=== PATIENT | male | born 1940 | race Caucasian/White ===

== ENCOUNTER → 2016-10-04 | Outpatient (CLI) | payer MEDICARE ==
[~2016-10-04] MED LIST: ADV250INH INH; ALB2.5NEB INH; ALBU17IN INH; AMLO10TA PO; AMLO10TA2 PO; AMLO25TA PO; ASPI1TAB PO; ATOR1TAB19 PO; BENA25CA2 PO; BENA25TA4 PO; BISO10TA PO; BISO5TAB5 PO; CIPR-250 PO; CIPR500T89 PO; CLOB-25 TOP; COLA100C PO; COMP1TAB PO; DITR5TAB PO; DOCU10CA PO; DOXY100C PO; FERR325T16 PO; FERR32TA PO; FIRS1SOL3 PO; HYDR100T PO; IMOD2TAB16 PO; LASI20TA PO; LEVA250T PO; MEGE40TA PO; MIRA3350 PO; OCUVTAB PO; OMEP10CASR PO; OMEP20CA3 PO; OMEP40CA2 PO; ONETAB4 PO; PAME25CA PO; PAME50CA PO; PERC2.5T PO; PERC5TAB6 PO; PROBCAP4 PO; SENO8.6T10 PO; SODI650T PO; TYLE500T78 PO; ZYVO100T PO; imodium PO
[2016-10-04 13:13] LABS: MEAN CORPUSCULAR HGB CONC 32.4 g/dl (32.0-36.5); MEAN CORPUSCULAR VOLUME 89.5 fl (80.0-96.0); RED CELL DISTRIBUTION WIDTH 15.7 % (11.5-14.5); RETIC HEMOGLOBIN CONTENT CHr 31.8 PG (24-36); RETICULOCYTE % ADVIA2120 1.6 % (0.5-1.5); WHITE BLOOD COUNT 6.3 K/mm3 (4.0-10.0)
[2016-10-04 13:56] LABS: ALBUMIN 3.9 GM/DL (3.2-5.2); ALBUMIN/GLOBULIN RATIO 1.15 (1.00-1.93); BILIRUBIN,TOTAL 0.5 MG/DL (0.2-1.0); CALCIUM LEVEL 9.4 MG/DL (8.8-10.2); CREATININE FOR GFR 3.15 MG/DL (0.70-1.30); FREE T4 0.97 NG/DL (0.76-1.46); GLOMERULAR FILTRATION RATE 20.5 (>42); POTASSIUM SERUM 4.2 MEQ/L (3.5-5.1); TOTAL PROTEIN 7.3 GM/DL (6.4-8.2)
== END ==
LOC: M SMT 08:12
PROVIDERS: ATTEND Family Medicine
DX: N18.4 Chronic kidney disease, stage 4 (severe) (principal); E78.2 Mixed hyperlipidemia; D50.9 Iron deficiency anemia, unspecified; E03.9 Hypothyroidism, unspecified

== ENCOUNTER → 2016-10-24 | Outpatient (CLI) | payer MEDICARE ==
[2016-10-24 13:47] LABS: ALBUMIN 3.9 GM/DL (3.2-5.2); CREATININE FOR GFR 3.04 MG/DL (0.70-1.30); GLOMERULAR FILTRATION RATE 21.3 (>42); PHOSPHORUS LEVEL 3.5 MG/DL (2.5-4.9); POTASSIUM SERUM 4.2 MEQ/L (3.5-5.1)
== END ==
LOC: M SMT 09:38
PROVIDERS: ATTEND Family Medicine
DX: N18.4 Chronic kidney disease, stage 4 (severe) (principal)

== ENCOUNTER → 2016-11-29 | Outpatient (REF) | payer MEDICARE ==
[2016-11-29 14:30] LABS: PERCENT SATURATION 21.5 % (19.7-37.4)
== END ==
LOC: M LAB REF 13:53
PROVIDERS: ATTEND Internal Medicine Nephrology
DX: D50.9 Iron deficiency anemia, unspecified (principal)

== ENCOUNTER → 2017-01-01 | Outpatient (CLI) | payer MEDICARE ==
[~2017-01-01] MED LIST changes: -COLA100C PO; +COLA100C3 PO; +GASTROGRAFIN SOLUTION 30ML (Q9963) As Ordered ONE; +ISOVUE-370 76% 100ML VIAL (Q9967) As Ordered ONE; -MEGE40TA PO; +MEGE40TA18 PO
--- NOTE | 2017-01-01 09:01 | REP ---
CT CHEST WITHOUT CONTRAST: 01/01/2017. Comparison: 07/03/2016, 01/01/2016. Clinical history: Bladder carcinoma, follow-up. Findings: Noncontrast images were obtained with coronal and sagittal reconstructions. The lung celeste show a 10 mm nodule lateral basal segment left lower lobe between the mid axillary and posterior axillary line. Some dependent atelectatic changes right greater than left. There is some underlying minor fibrotic change. Some hyperinflation and COPD noted. Some bullous emphysematous changes noted bilaterally in the upper lung zones unchanged. No dense consolidation, new nodule or mass. No effusion or pleural based mass. No pleural calcifications. Heart is not grossly enlarged. There is a right upper chest wall multilead pacer with leads in the right atrium and ventricle as well as an epicardial lead. No gross cardiomegaly, pericardial thickening or effusion. I see no axillary or supraclavicular mass. Tortuous calcified aorta without aneurysm noted. No pathologic sized mediastinal or hilar adenopathy. Coronary calcifications are seen. No hiatal hernia. Bone windows show sternum, manubrium, medial heads of the clavicles, humeral heads, scapula and ribs without definite fracture or destructive lesion. The vertebral bodies show a few small marginal osteophytes but no compression deformity. Posterior elements intact. In the upper abdomen, adrenal glands normal. Please see abdominal CT for description of the upper abdominal contents. Impression: 1. Stable 10 mm noncalcified pulmonary nodule in the lateral basal segment left lower lobe. No new or other significant finding. There are chronic changes of COPD with bullous emphysematous changes, pulmonary artery hypertension and fibrosis. No effusion, pleural-based mass or calcifications. 2. No gross cardiomegaly, mediastinal or hilar adenopathy or other acute finding. 3. Multilead pacer as before with calcified aorta without aneurysm. 4. Bones unremarkable. Signed by Cr Shaw MD 01/01/2017 03:27 P
--- NOTE | 2017-01-01 09:25 | REP ---
CT ABDOMEN AND PELVIS WITHOUT CONTRAST: 01/01/2017. Clinical history: Bladder carcinoma. Follow-up. Comparison: 07/03/2016, 01/01/2016. Technique: Oral Gastrografin mixture 10 ml in 290 ml of flavored water for two doses per our bowel contrast protocol. Scanning through the abdomen and pelvis with both coronal and sagittal reconstructions provided. Bone windows also reviewed. Findings: CT abdomen: Right and left lobe of the liver each have a subcentimeter hepatic cyst unchanged. No new mass or cyst in the liver visible. No intrahepatic biliary dilatation or ascites. Spleen not enlarged and without a focal lesion. No hepatomegaly. Gallbladder shows some hyperdense sludge or tiny noncalcified stones in its dependent portion. There is no extrahepatic ductal dilatation of the biliary tree or in the pancreatic head region. Pancreas is unremarkable. There is no mass, adenopathy or fluid. There is no adrenal mass or lesion. There is significant atrophy of the right kidney with exophytic small cysts. There is an exophytic cyst posteriorly upper pole left kidney and cyst in the interpolar region medially on the left at about 17 mm, unchanged. No hydronephrosis, hydroureter, renal, ureteral or bladder stone. Thickening of the adrenal limbs on the right is stable. The aorta is calcified without aneurysm. No periaortic or other retroperitoneal lymphadenopathy. Moderate retained stool throughout the colon in the abdomen. Oral contrast filling small bowel loops without dilatation. No mesenteric infiltration, edema or mass nor any adenopathy. No obstruction. Lung window review of the abdomen and pelvis show no perforation or free air on any slice. Bone windows show degenerative disc changes with vacuum phenomenon at L3-4 and marginal osteophytes at most levels with no compression deformity of destructive lesion. Facet arthropathy is noted bilaterally. Visualized ribs without acute finding. CT pelvis. The bony hips show some degenerative changes of the pelvis including the acetabuli and ischia without visible fracture or destructive lesions. There is a bone island in the left sacral ala and the right iliac wing adjacent to the sacrum, unchanged. Left colon, sigmoid and rectum with mild to moderate stool. Small bowel loops in the pelvis are unremarkable. No inflammatory changes about the cecum nor mass. Bladder shows a diverticulum along its posterolateral right wall and is irregular shaped. Its wall thickness is somewhat lobulated and irregular. The distal ureters show no dilatation or definite stone. This suggests a neobladder. Anastomotic sutures in the adjacent colon are unremarkable. There are multiple pelvic phleboliths. There are vascular calcifications within the iliac and femoral arteries and 9.6 mm fatty replaced right inguinal node with another 9.7 mm inguinal node with similar fat slightly larger than the left-sided inguinal nodes. These are all unchanged. No pelvic lymphadenopathy. There are multiple surgical clips in the deep pelvis, unchanged. Prior prostatectomy also noted. Impression: 1. Status post cystectomy, neobladder creation and prostatectomy with post surgical changes, stable. 2. The right iliac bone and left sacral ala shows sclerotic foci with these unchanged and suggesting bone islands. 3. Inguinal nodes with fatty replacement, stable. 4. Some degree of constipation. Atrophy of the right kidney but no hydronephrosis. Some small renal cysts. Stable examination. Signed by Cr Shaw MD 01/01/2017 03:27 P
== END ==
LOC: M RAD 07:07
PROVIDERS: ATTEND Internal Medicine Medical Oncology
DX: C67.9 Malignant neoplasm of bladder, unspecified (principal); R91.1 Solitary pulmonary nodule; Z95.0 Presence of cardiac pacemaker; N28.1 Cyst of kidney, acquired; K59.00 Constipation, unspecified
CPT/HCPCS: 71250; 74176; Q9963

== ENCOUNTER → 2017-01-16 | Outpatient (CLI) | payer MEDICARE ==
[~2017-01-16] MED LIST changes: -GASTROGRAFIN SOLUTION 30ML (Q9963) As Ordered ONE; -ISOVUE-370 76% 100ML VIAL (Q9967) As Ordered ONE
[2017-01-16 12:20] LABS: MEAN CORPUSCULAR HEMOGLOBIN 32.4 pg (27.0-33.0); MEAN CORPUSCULAR HGB CONC 34.7 g/dl (32.0-36.5); MEAN CORPUSCULAR VOLUME 93.5 fl (80.0-96.0); RED CELL DISTRIBUTION WIDTH 14.7 % (11.5-14.5); WHITE BLOOD COUNT 6.1 K/mm3 (4.0-10.0)
[2017-01-16 12:23] LABS: CREATININE FOR GFR 3.23 MG/DL (0.70-1.30); GLOMERULAR FILTRATION RATE 19.9 (>42); POTASSIUM SERUM 4.2 MEQ/L (3.5-5.1)
== END ==
LOC: M SMT 07:56
PROVIDERS: ATTEND Urology
DX: C67.9 Malignant neoplasm of bladder, unspecified (principal)

== ENCOUNTER → 2017-03-10 | Outpatient (CLI) | payer MEDICARE ==
[~2017-03-10] MED LIST changes: +ATOR40TA PO; +CLOP75TA2 PO; +FURO40TA2 PO; +NORT50CA PO; +POTA10CA PO; +SYNT25TA PO; +VITA100037 PO; +VITA100072 PO
== END ==
LOC: M SMT 10:00
PROVIDERS: ATTEND Internal Medicine Cardiovascular Disease
DX: E03.9 Hypothyroidism, unspecified (principal); R53.83 Other fatigue; I25.10 Atherosclerotic heart disease of native coronary artery without angina pectoris; R07.89 Other chest pain

== ENCOUNTER 2017-03-11 11:45 | Emergency (ER) | payer MEDICARE ==
[~2017-03-11] VITALS: Ht 177.8 cm; Wt 89.3 kg
[~2017-03-11 11:45] MED LIST changes: -ATOR40TA PO; +CIPR-249 PO; -CIPR500T89 PO; -CLOP75TA2 PO; -COLA100C3 PO; +COLA100C5 PO; -FURO40TA2 PO; +LEVA1TAB PO; -LEVA250T PO; -NORT50CA PO; +PERC5TAB12 PO; -PERC5TAB6 PO; -POTA10CA PO; -SYNT25TA PO; -VITA100037 PO; -VITA100072 PO
[2017-03-11] MEDS ORDERED: OMEP40CA2 PO (12:11)
[2017-03-11] MEDS ORDERED: SYNT25TA PO (12:11)
[2017-03-11] MEDS ORDERED: VITA100072 PO (12:11)
[2017-03-11] MEDS ORDERED: VITA100067 PO (12:11)
[2017-03-11] MEDS ORDERED: ONETAB4 PO (12:11)
[2017-03-11] MEDS ORDERED: FERR325T16 PO (12:11)
[2017-03-11] MEDS ORDERED: PROBCAP4 PO (12:11)
[2017-03-11] MEDS ORDERED: CLOP75TA2 PO (12:11)
[2017-03-11] MEDS ORDERED: SODI650T PO (12:11)
[2017-03-11] MEDS ORDERED: FURO40TA2 PO (12:11)
[2017-03-11] MEDS ORDERED: NORT50CA PO (12:11)
[2017-03-11] MEDS ORDERED: AMLO10TA2 PO (12:11)
[2017-03-11] MEDS ORDERED: HEPARIN DRIP 25,000 UNITS in APPROPRIATE DILUENT 1 EA IV SCH (12:13)
[2017-03-11] MEDS ORDERED: ASPIRIN 81 MG CHEW TABLET PO ONE (12:15)
[2017-03-11] MEDS ORDERED: HEPARIN SOD (PORCINE) 5000 UNITS/ML VIAL IV ONE (12:15)
[2017-03-11 12:44] LABS: BASO % 0.3 % (0.0-1.0); EOS # 0.2 K/mm3 (0.0-0.50); EOS % 3.5 % (0.0-3.0); INR 0.89; LARGE UNSTAINED CELL # 0.2 K/mm3 (0.0-0.4); LARGE UNSTAINED CELL % 3.7 % (0.0-4.0); LYMPH # 1.5 K/mm3 (1.5-4.5); LYMPH % 22.7 % (24.0-44.0); MEAN CORPUSCULAR HEMOGLOBIN 31.3 pg (27.0-33.0); MEAN CORPUSCULAR HGB CONC 34.1 g/dl (32.0-36.5); MEAN CORPUSCULAR VOLUME 91.8 fl (80.0-96.0); MONO # 0.4 K/mm3 (0.0-0.8); MONO % 7.4 % (0.0-5.0); NEUTROPHILS # 3.5 K/mm3 (1.8-7.7); NEUTROPHILS % 62.4 % (36.0-66.0); PLATELET COUNT, AUTOMATED 185 k/mm3 (150-450); RED CELL DISTRIBUTION WIDTH 14.8 % (11.5-14.5); WHITE BLOOD COUNT 5.6 K/mm3 (4.0-10.0)
--- NOTE | 2017-03-11 12:50 | REP ---
PORTABLE CHEST: AP portable view of the chest is performed and compared to prior study of 10/09/2015. There is mild bibasilar fibroatelectatic change, which is stable. Heart is upper limits of normal in size. There is calcification of the thoracic aorta. The pacemaker leads appear unchanged. IMPRESSION: Chronic findings without evidence of acute infiltrate. Signed by Paul Perry MD 03/11/2017 05:02 P
[2017-03-11 12:56] LABS: ALBUMIN 3.5 GM/DL (3.2-5.2); ALBUMIN/GLOBULIN RATIO 1.13 (1.00-1.93); BILIRUBIN,DIRECT 0.1 MG/DL (0.0-0.2); BILIRUBIN,TOTAL 0.6 MG/DL (0.2-1.0); CALCIUM LEVEL 8.3 MG/DL (8.8-10.2); CREATININE FOR GFR 2.55 MG/DL (0.70-1.30); FREE T4 0.88 NG/DL (0.76-1.46); GLOMERULAR FILTRATION RATE 26.1 (>42); POTASSIUM SERUM 3.6 MEQ/L (3.5-5.1); TOTAL PROTEIN 6.6 GM/DL (6.4-8.2)
[2017-03-11 13:59] VITALS: BP 152/70
--- NOTE | 2017-03-11 17:57 | ECGEPIP ---
Stationary ECG Study [facility] - ED Test Date: 2017-03-11 Pat Name: BILL ROSE Department: Room: - Gender: M Pediatric Clinical Nurse Specialist: elvie : 1940 Requested By: Jb Umaña Order Number: [id number] Reading MD: Jb Umaña Measurements Intervals [place] Rate: 55 P: 69 TN: 197 QRS: 25 QRSD: 110 T: 40 QT: 454 QTc: 435 Interpretive Statements ELECTRONIC ATRIAL PACEMAKER INCOMPLETE RIGHT BUNDLE BRANCH BLOCK ABNORMAL RHYTHM ECG 06/06/16 - RATE DECREASED Electronically Signed On 03-11-2017 17:56:37 EDT by Jb Umaña
== END 2017-03-11 14:00 | disposition short-term general hospital (02) ==
LOC: M ED 12:35
DX: I21.4 Non-ST elevation (NSTEMI) myocardial infarction (principal); I25.10 Atherosclerotic heart disease of native coronary artery without angina pectoris; I12.9 Hypertensive chronic kidney disease with stage 1 through stage 4 chronic kidney disease, or unspecified chronic kidney disease; E78.5 Hyperlipidemia, unspecified; N18.3 Chronic kidney disease, stage 3 (moderate); Z95.5 Presence of coronary angioplasty implant and graft; Z95.0 Presence of cardiac pacemaker; Z79.02 Long term (current) use of antithrombotics/antiplatelets; Z79.82 Long term (current) use of aspirin; Z87.891 Personal history of nicotine dependence; Z79.899 Other long term (current) drug therapy; Z88.2 Allergy status to sulfonamides; Z88.5 Allergy status to narcotic agent; Z88.8 Allergy status to other drugs, medicaments and biological substances; Z91.041 Radiographic dye allergy status

== ENCOUNTER 2017-03-13 12:40 | Observation (INO) | payer MEDICARE ==
[~2017-03-13] VITALS: Ht 177.8 cm; Wt 86.2 kg
[~2017-03-13 12:40] MED LIST changes: +CLOP75TA2 PO; +FURO40TA2 PO; +NORT50CA PO; +SYNT25TA PO; +VITA100067 PO; +VITA100072 PO
[2017-03-13] MEDS ORDERED: ATOR40TA75 PO (12:59)
[2017-03-13 13:25] LABS: INR 0.9
[2017-03-13 13:26] LABS: BASO % 0.2 % (0.0-1.0); EOS # 0.1 K/mm3 (0.0-0.50); EOS % 1.7 % (0.0-3.0); LARGE UNSTAINED CELL # 0.2 K/mm3 (0.0-0.4); LARGE UNSTAINED CELL % 2.3 % (0.0-4.0); LYMPH # 0.7 K/mm3 (1.5-4.5); LYMPH % 10.6 % (24.0-44.0); MEAN CORPUSCULAR HEMOGLOBIN 31.1 pg (27.0-33.0); MEAN CORPUSCULAR HGB CONC 32.8 g/dl (32.0-36.5); MEAN CORPUSCULAR VOLUME 94.9 fl (80.0-96.0); MONO # 0.4 K/mm3 (0.0-0.8); MONO % 5.9 % (0.0-5.0); NEUTROPHILS # 5.3 K/mm3 (1.8-7.7); NEUTROPHILS % 79.3 % (36.0-66.0); PLATELET COUNT, AUTOMATED 181 k/mm3 (150-450); RED CELL DISTRIBUTION WIDTH 15.1 % (11.5-14.5); WHITE BLOOD COUNT 6.7 K/mm3 (4.0-10.0)
[2017-03-13 13:42] LABS: ALBUMIN 3.3 GM/DL (3.2-5.2); ALBUMIN/GLOBULIN RATIO 0.94 (1.00-1.93); BILIRUBIN,DIRECT 0.1 MG/DL (0.0-0.2); BILIRUBIN,TOTAL 0.4 MG/DL (0.2-1.0); CALCIUM LEVEL 8.4 MG/DL (8.8-10.2); CREATININE FOR GFR 2.78 MG/DL (0.70-1.30); FREE T4 0.89 NG/DL (0.76-1.46); GLOMERULAR FILTRATION RATE 23.6 (>42); POTASSIUM SERUM 3.9 MEQ/L (3.5-5.1); TOTAL PROTEIN 6.8 GM/DL (6.4-8.2)
--- NOTE | 2017-03-13 13:56 | REP ---
Portable chest, 03/13/2017, 01:29 p.m., single AP view, the patient semi upright: Comparison is 03/11/2017. The lung celeste are clear. Cardiac size is upper normal. There is a multi pacemaker entering from the right. These one of the pacemaker leads is fractured. This is unchanged. Impression: Essentially negative portable chest. No interval change. Signed by Paul Kolb MD 03/13/2017 01:47 P
--- NOTE | 2017-03-13 14:23 | REP ---
CT abdomen pelvis without IV or bowel contrast: The patient has a history of bladder carcinoma with cystectomy and neobladder reconstruction and prostatectomy. The the patient has also had partial bowel resection. Anastomosis. Comparison is 01/01/2017. There is no retroperitoneal hematoma. There is no free intraperitoneal fluid. There are focal inflammatory changes in the mesentery posterior to the cecum as an interval change, possibly representing peritonitis. I am unable to identify the appendix. There is a circumferential surgical staple line in bowel loops in the midline of the pelvis. This was not present previously. This appears to be an a small bowel loop in the ileum. However, there is a small bowel feces sign" within the small bowel at this anastomosis. This is compatible with small bowel stasis. However, there is no evidence of small bowel obstruction. There is no pneumoperitoneum. The visualized lung celeste demonstrate dependent atelectasis but are otherwise unremarkable. The unenhanced hepatic parenchyma is unremarkable. There is no of calcium in the gallbladder. The gallbladder is otherwise unremarkable. Pancreas and spleen are unremarkable. The adrenals are unremarkable. There is bilateral renal cortical atrophy, worse on the right and the left. Abdominal aorta is unremarkable. No evidence of bowel obstruction. Reconstructed bladder is unremarkable except for a diverticulum posterior laterally on the right. This is unchanged. Impression: There is no retroperitoneal hematoma. There is no free intraperitoneal fluid. No pneumoperitoneum. There has been a cystectomy bladder reconstruction. Reconstructed bladder is unremarkable except for a bladder diverticulum. There are focal inflammatory changes in the peritoneum adjacent to the cecum and terminal ileum, not present previously. There is no focal fluid collection to suggest abscess. I cannot identify the appendix. There is a circumferential bowel anastomotic suture line in the distal ileum not present previously. There is a small bowel "feces sign" within this portion of the ileum compatible with stasis. However, there is no evidence of bowel obstruction. Signed by Paul Kolb MD 03/13/2017 02:14 P
[2017-03-13] MEDS ORDERED: PIPERACILLIN/TAZOBACTAM SOD 3.375 GM in D5W MINI-BAG PLUS 50 ML IV ONE (15:15)
[2017-03-13] MEDS ORDERED: LOPERAMIDE 2 MG CAP PO PRN (17:45)
[2017-03-13] MEDS ORDERED: DOCUSATE SODIUM 100 MG CAP PO PRN (17:45)
[2017-03-13] MEDS ORDERED: MIRALAX *UNIT DOSE* 17GM PACKET PO PRN (17:45)
[2017-03-13] MEDS ORDERED: PERCOCET 5MG/325MG TAB PO PRN (18:15)
--- NOTE | 2017-03-13 18:40 | HPEPDOC ---
General Date of Admission Mar 13, 2017 at 17:25 Primary Care Physician: James Bianchi MD Other Providers Products Mechanical Design Engineer: Dr. Salazar Feedmobile Driver: Dr. Petersen Attending Physician: TREVOR DELGADO DO Chief Complaint The patient is a 77-year-old male admitted with a reason for visit of Abdominal Pain,Atypical Chest Pain, Groin Pain. Source: Patient History of Present Illness Patient is a 77-year-old male with past medical history significant for cardiac stents placed 2 days ago, none ST elevation myocardial infarction, cardiac pacemaker, hypertension, hyperlipidemia, chronic kidney disease stage IV presents to the emergency room with the complaint of jaw pain and groin pain. Patient recently had a NSTEMI on 03/11/2017. Patient presented to the ER at [facility] with atypical chest pain. Patient was then transferred to [facility] for 2 cardiac caths. Patient remembered feeling fine yesterday and was sent home. Upon arriving home patient did not feel right. He started having some soreness in his right groin and right lower abdomen. Patient also started having some jaw pain across his lower jaw bilaterally. He describes it as sore and rates it at 7 out of 10. Patient is also still having some of this jaw pain in the ER. Patient states she's had this in the past and usually has a headache but does not have this today. Patient states that the groin pain was due to the cardiac cath's. Patient has not been taking anything for the pain. Patient was originally in the ER with his with his life has left for other reasons. She will return later tonight. Patient states that she would remember more. Patient does not remember the exact details of arriving to the hospital today. He states he had a lot going on. Does not remember having any chest pain. When asked why are you here patient states he does not remember why. Then asked patient if he saw Dr. Salazar's office today and patient replied that his called his office and Dr. Salazar told his to come to the ER. Patient is oriented [address] and time. Patient does remember his birthday. Home Medications Scheduled Amlodipine Besylate (Amlodipine Besylate) 10 Mg Tab, 10 MG PO DAILY, (Reported) Aspirin (Aspirin 81) 81 Mg Tab, 81 MG PO DAILY, (Reported) Atorvastatin Calcium (Atorvastatin Calcium) 40 Mg Tab, 40 MG PO QHS, (Reported) Bisoprolol Fumarate (Bisoprolol Fumarate) 5 Mg Tab, 2.5 MG PO DAILY, (Reported) Clopidogrel Bisulfate (Clopidogrel) 75 Mg Tab, 75 MG PO DAILY, (Reported) Cyanocobalamin (Vitamin B12) 1,000 Mcg Tab, 1,000 MCG PO DAILY, (Reported) Ferrous Gluconate (Ferrous Gluconate) 324 Mg Tab, 324 MG PO BID, (Reported) Furosemide (Furosemide) 40 Mg Tab, 40 MG PO DAILY, (Reported) Levothyroxine Sodium (Synthroid) 25 Mcg Tab, 25 MCG PO DAILY, (Reported) Nortriptyline HCl (Nortriptyline HCl) 50 Mg Cap, 50 MG PO QHS, (Reported) Omeprazole (Omeprazole) 40 Mg Cap, 40 MG PO BID, (Reported) Potassium Chloride (Klor-Con M10) 10 Meq Tabcr, 20 MEQ PO BID Sodium Bicarbonate (Sodium Bicarbonate) 650 Mg Tab, 1,950 MG PO TID, (Reported) Vitamin D (Vitamin D) 1,000 Unit Cap, 1,000 UNIT PO DAILY, (Reported) hydrALAZINE HCL (Hydralazine HCl) 100 Mg Tab, 100 MG PO TID, (Reported) HOLD FOR SYSTOLIC BP <130 Scheduled PRN Docusate Sodium (Colace) 100 Mg Cap, 100 MG PO BIDP PRN for BOWEL CARE/ CONSTIPATION, (Reported) Loperamide Hcl (Imodium A-D) 2 Mg Tab, 2 MG PO DAILYPRN PRN for DIARRHEA, ( Reported) Polyethylene Glycol (Miralax) 1 Pow Pow, 17 GM PO DAILYPRN PRN for CONSTIPATION, (Reported) Allergies Coded Allergies: Contrast Media (Verified Allergy, Unknown, 06/17/14) Iodine (Verified Allergy, Unknown, 12/22/12) Sulfa Drugs (Verified Allergy, Unknown, 12/22/12) TAPE (Verified Allergy, Unknown, EKG PADS - skin irritation, 07/16/14) Haloperidol (Unverified Adverse Reaction, Severe, UNRESPONSIVE FOR 24 HOURS, 12/22/14) Hydrocodone (Unverified Adverse Reaction, Mild, "GOES INTO ORBIT", 12/22/14) Morphine (Unverified Adverse Reaction, Mild, "GOES INTO ORBIT", 12/22/14) Past Medical History Medical History 1. An STEMI 03/11/2017 2. Hypertension 3. Hyperlipidemia 4. Coronary artery disease 5. Chronic kidney disease stage IV 6. Anemia, chronic 7. History of bladder cancer 8. GERD Surgical History 1. Cardiac stents 2 in February 2017 at [facility] in [place] 2. Appendectomy 3. Cardiac pacemaker 4. Cataract surgery bilateral 5. Carpal tunnel release right 6. Cardiac Stents in 2002 1999 400,009 7. TURBT 2013 8. Robotic-assisted radical cystoprostatectomy, bilateral extended pelvic lymph node dissection, neobladder creation, lysis of adhesions, anteriorly. Bilateral double-J stent placement September [address] Paiz Family History Father: Heart problems Social History * Smoker: former Smoker, quit greater than 1 year (quit smoking 1991. Patient smoked a couple packs a day.) Alcohol: Denies Drugs: denies Recent Travel/Sick Contacts: Denies: Recent travel, Recent sick contacts Patient was at home with his . He has a boy who lives in [place]. They have no other children. No one else lives at home with them. Review of Symptoms Constitutional: Reports: Fatigue, Lethargy, Denies: Chills, Fever, Malaise Eyes: Denies: Pain, Vision change ENT: Denies: Head Aches Skin: Denies: Rash, Lesions Pulmonary: Reports: Cough (nonproductive. Patient minutes to having sometimes productive. He had this cough "for ages"), Denies: Dyspnea Cardiovascular: Denies: Chest Pain, Palpitations, Orthopnea Gastrointestinal: Denies: Nausea, Vomiting, Abdominal Pain, Diarrhea, Constipation Genitourinary: Denies: Dysuria, Frequency, Incontinence Hematologic: Denies: Bruising, Bleeding Excessively Endocrine: Denies: Polydipsia, Polyphagia Musculoskeletal: Denies: Neck Pain Neurological: Denies: Weakness, Numbness, Change in speech, Confusion Psych: Reports: Mood Normal, Memory Issues (patient does not remember all of the details of coming to the ER today.), Denies: Anxiety, Depression Physical Examination General Exam: Positive: Alert, Cooperative, No Acute Distress Eye Exam: Positive: PERRLA, Conjunctiva & lids normal, EOMI, Negative: Sclera icteric, Ptosis ENT Exam: Positive: Atraumatic, Mucous membr. moist/pink, Pharynx Normal, Tongue Midline, Nares Patent Neck Exam: Positive: Supple, Negative: JVD, thyromegaly, Lymphadenopathy Chest Exam: Positive: Clear to auscultation, Normal air movement, Negative: Rales, Wheezing Heart Exam: Positive: Rate Normal, Normal S1, Normal S2, Negative: Gallops, Murmurs, Rubs Abdomen Exam: Positive: Normal bowel sounds, Soft, Tenderness (right lower quadrant), Negative: Hepatospenomegaly, Mass Extremity Exam: Positive: Normal pulses (radial pulses and pedal pulses 2/4 bilaterally.), Negative: Clubbing, Cyanosis, Edema Skin Exam: Positive: Nl turgor and temperature, Negative: Rash, Breakdown Neuro Exam: Positive: Normal Speech, Strength at 5/5 X4 ext, Sensation Intact, Cranial Nerves 3-12 NL Psych Exam: Positive: Mental status NL, Mood NL, Oriented x 3 (person place and time) Vital Signs Vital Signs Date Time Temp Pulse Resp B/P (MAP) Pulse Ox O2 Delivery O2 Flow Rate FiO2 03/13/17 18:01 16 151/64 (93) 03/13/17 17:55 84 96 03/13/17 12:41 97.9 Room Air Laboratory Data Labs 24H Laboratory Tests 2 03/13/17 12:55: White Blood Count 6.7, Red Blood Count 3.25L, Hemoglobin 10.1L, Hematocrit 30.8L , Mean Corpuscular Volume 94.9, Mean Corpuscular Hemoglobin 31.1, Mean Corpuscular Hemoglobin Concent 32.8, Red Cell Distribution Width 15.1H, Platelet Count 181, Neutrophils (%) (Auto) 79.3H, Lymphocytes (%) (Auto) 10.6L, Monocytes (%) (Auto) 5.9H, Eosinophils (%) (Auto) 1.7, Basophils (%) (Auto) 0.2 , Neutrophils # (Auto) 5.3, Lymphocytes # (Auto) 0.7L, Monocytes # (Auto) 0.4, Eosinophils # (Auto) 0.1, Basophils # (Auto) 0.0, Large Unclassified Cells % 2.3 , Large Unclassified Cells # 0.2, Prothrombin Time 12.3, Prothromb Time International Ratio 0.90, Activated Partial Thromboplast Time 20.0L, Anion Gap 6L, Glomerular Filtration Rate 23.6L, Calcium Level 8.4L, Aspartate Amino Transf (AST/SGOT) 71H, Alanine Aminotransferase (ALT/SGPT) 47, Alkaline Phosphatase 130H, Total Bilirubin 0.4, Direct Bilirubin 0.1, Total Creatine Kinase 158, Creatine Kinase MB 3.1, Creatine Kinase MB Relative Index 1.96, Troponin I 0.47H, Total Protein 6.8, Albumin 3.3, Albumin/Globulin Ratio 0.94L, Lipase 246, Thyroid Stimulating Hormone (TSH) 2.450, Free Thyroxine 0.89 03/13/17 15:23: Total Creatine Kinase 140, Creatine Kinase MB 2.8, Creatine Kinase MB Relative Index 2.00, Troponin I 0.43H CBC/BMP Laboratory Tests 03/13/17 12:55 Red Blood Count 3.25 L, Mean Corpuscular Volume 94.9, Mean Corpuscular Hemoglobin 31.1, Mean Corpuscular Hemoglobin Concent 32.8, Red Cell Distribution Width 15.1 H, Neutrophils (%) (Auto) 79.3 H, Lymphocytes (%) (Auto ) 10.6 L, Monocytes (%) (Auto) 5.9 H, Eosinophils (%) (Auto) 1.7, Basophils (%) (Auto) 0.2, Neutrophils # (Auto) 5.3, Lymphocytes # (Auto) 0.7 L, Monocytes # ( Auto) 0.4, Eosinophils # (Auto) 0.1, Basophils # (Auto) 0.0 Microbiology Microbiology 03/13/17 Blood Culture, Received Pending 03/13/17 Blood Culture, Received Pending Problems (1) Atypical chest pain Problem Text: Patient will be admitted to PCU for continued cardiac monitoring. Cardiac markers were repeated every 6 hours. To trend troponins. Patient is complaining of jaw pain. This is most likely atypical chest pain. Patient had an EKG in the ER which did not reveal any ST segment changes compared to previous. Consulting professional nursing assistant, Dr. Salazar at this time. Appreciate his assistance in management of this patient at this time. Patient was previously not on any medication for pain. Prescribing patient Percocet every 6 hours when necessary for pain. Monitor patient clinically. Follow up in the morning. (2) Recent non-ST elevation myocardial infarction (NSTEMI) Problem Text: Item Value Date Time Troponin I 0.47 NG/ML H 03/13/17 1255 Creatine Kinase MB Relative Index 1.96 03/13/17 1255 Creatine Kinase MB 3.1 NG/ML 03/13/17 1255 Creatine Kinase MB 2.8 NG/ML 03/13/17 1523 Creatine Kinase MB Relative Index 2.00 03/13/17 1523 Troponin I 0.43 NG/ML H 03/13/17 1523 Patient had a recent non-ST elevation myocardial infarction on 03/11/2017. Patient was transferred to [facility] for cardiac catheterization 2. Continuing to follow cardiac enzymes at this time. Abdomen ordered every 8 hours 2. 2 sets of markers were partly completed in the ER. Patient's home aspirin 81 mg and clopidogrel 75 mg were continued. (3) Abdominal pain Status: Resolved Problem Text: Patient has pain in the right lower quadrant. This is most likely secondary to cardiac catheterization. He may also possibly be ileitis/colitis. This was shown on the CT scan of abdomen and pelvis performed today. Blood cultures 2 were performed. Patient was given Zosyn in the ER and this will be continued every 6 hours. Monitor as needed. (4) Groin pain Problem Text: Patient has pain in the right groin. This is most likely secondary to cardiac catheterization. Monitor as needed. (5) Chronic anemia Problem Text: Patient has a history of chronic anemia. Item Value Date Time Hemoglobin 10.1 g/dl L 03/13/17 1255 Hematocrit 30.8 % L 03/13/17 1255 This was patient's hemoglobin on admission. This is slightly decreased from patient's previous hemoglobin. We'll repeat in the morning. Patient signed consent for blood transfusion in case this is needed. Risks and benefits were reviewed with patient. (6) Hyperlipemia Problem Text: Continue patient on home dose atorvastatin. (7) CKD (chronic kidney disease), stage IV Status: Chronic Problem Text: Patient's creatinine today is slightly better than baseline. We will reorder in the morning. Monitor as needed. Nephrology has not been consulted at this time. Item Value Date Time Creatinine 2.78 MG/DL H 03/13/17 1255 Glomerular Filtration Rate 23.6 L 03/13/17 1255 (8) HTN (hypertension) Status: Chronic Problem Text: Continue patient's home dose amlodipine 10 mg by mouth daily, this prolonged 2.5 mg daily, hydralazine 100 mg daily. Holding patient's furosemide 40 mg by mouth daily, unsure if patient is still taking this medication. (9) History of bladder cancer Status: Resolved Problem Text: Patient has a history of bladder cancer with surgery in September 2014. This was performed by Dr. Paiz. Plan / VTE VTE Prophylaxis Ordered?: Yes (Knee high compressions) Plan Plan Patient is to be admitted to the PCU. Patient was placed on telemetry. Patient will be started on a 2 g sodium diet. GME ATTESTATION GME ATTESTATION My preceptor for this patient encounter was Dr. Delgado and he was physically present in the building during the encounter and was fully available. As needed , all aspects of the patient interview, examination, medical decision making process, and medical care plan development were reviewed and approved by the preceptor. Preceptor is aware and concurs with the plan as stated in the body of this note and will attest to such by his/her cosignature. ATTENDING NOTE Attending note: I have examined this patient independently and reviewed the chart and diagnostic studies. I have had a detailed discussion with the resident regarding the plan as outlined above. All aspects of the history and physical are reflective of our discussion. GEOFF HARRISON DO Mar 13, 2017 18:40 TREVOR DELGADO DO Mar 15, 2017 16:35
[2017-03-13] MEDS: **hydrALAZINE** 50 MG TAB PO SCH (22:33)
[2017-03-13] MEDS: OMEPRAZOLE 20 MG CAP PO SCH (22:34)
[2017-03-13] MEDS: FERROUS GLUCONATE 324 MG TAB PO SCH (22:34)
[2017-03-13] MEDS: NORTRIPTYLINE 25 MG CAP PO SCH (22:34)
[2017-03-13] MEDS: ATORVASTATIN 20 MG TAB PO SCH (22:34)
[2017-03-13] MEDS: PIPERACILLIN/TAZOBACTAM SOD 3.375 GM in D5W MINI-BAG PLUS 50 ML IV SCH (22:35)
[2017-03-13] MEDS: SODIUM BICARBONATE 325 MG TAB PO SCH (22:35)
[2017-03-13 23:59] VITALS: BP 152/98
[2017-03-14 04:00] VITALS: BP 146/65
[2017-03-14] MEDS: PIPERACILLIN/TAZOBACTAM SOD 3.375 GM in D5W MINI-BAG PLUS 50 ML IV SCH ×3 (04:48→10:12)
[2017-03-14 04:57] LABS: BASO % 0.3 % (0.0-1.0); EOS # 0.1 K/mm3 (0.0-0.50); EOS % 3.4 % (0.0-3.0); LARGE UNSTAINED CELL # 0.1 K/mm3 (0.0-0.4); LARGE UNSTAINED CELL % 1.7 % (0.0-4.0); LYMPH # 0.7 K/mm3 (1.5-4.5); LYMPH % 14.5 % (24.0-44.0); MEAN CORPUSCULAR HEMOGLOBIN 30.7 pg (27.0-33.0); MEAN CORPUSCULAR HGB CONC 33.4 g/dl (32.0-36.5); MEAN CORPUSCULAR VOLUME 92.2 fl (80.0-96.0); MONO # 0.3 K/mm3 (0.0-0.8); MONO % 6.6 % (0.0-5.0); NEUTROPHILS # 3.1 K/mm3 (1.8-7.7); NEUTROPHILS % 73.5 % (36.0-66.0); PLATELET COUNT, AUTOMATED 150 k/mm3 (150-450); RED CELL DISTRIBUTION WIDTH 15.1 % (11.5-14.5); WHITE BLOOD COUNT 4.2 K/mm3 (4.0-10.0)
[2017-03-14 05:13] LABS: CALCIUM LEVEL 8.1 MG/DL (8.8-10.2); CREATININE FOR GFR 2.58 MG/DL (0.70-1.30); GLOMERULAR FILTRATION RATE 25.7 (>42); MAGNESIUM LEVEL 2.3 MG/DL (1.8-2.4); POTASSIUM SERUM 3.3 MEQ/L (3.5-5.1)
[2017-03-14] MEDS: LEVOTHYROXINE 25MCG TABLET (0.025MG) PO SCH (05:51)
--- NOTE | 2017-03-14 06:00 | ECGEPIP ---
Stationary ECG Study [facility] - ED Test Date: 2017-03-13 Pat Name: BILL ROSE Department: Room: - Gender: M Chain Hoist Operator: LIT : 1940 Requested By: Jb Umaña Order Number: [id number] Reading MD: Kofi Gustafson Measurements Intervals [place] Rate: 84 P: 18 MT: 196 QRS: 16 QRSD: 105 T: 17 QT: 370 QTc: 438 Interpretive Statements SINUS RHYTHM WITH OCCASIONAL SUPRAVENTRICULAR PREMATURE COMPLEXES INCOMPLETE RIGHT BUNDLE BRANCH BLOCK SIMILAR TO 03/11/17 Electronically Signed On 03-14-2017 6:00:04 EDT by Kofi Gustafson
--- NOTE | 2017-03-14 06:03 | ECGEPIP ---
Stationary ECG Study [facility] - ED Test Date: 2017-03-13 Pat Name: BILL ROSE Department: Room: - Gender: M Software Design Manager: LIT : 1940 Requested By: Jb Umaña Order Number: [id number] Reading MD: Kofi Gustafson Measurements Intervals [place] Rate: 62 P: 93 IA: 179 QRS: 18 QRSD: 106 T: 25 QT: 411 QTc: 420 Interpretive Statements SINUS RHYTHM INC. RBBB POSSIBLE INFERIOR MYOCARDIAL INFARCTION, PROBABLY OLD SIMILAR TO PRIOR ON SAME DATE Electronically Signed On 03-14-2017 6:02:57 EDT by Kofi Gustafson
[2017-03-14 07:15] VITALS: BP 142/71
[2017-03-14] MEDS: CYANOCOBALAMIN 500 MCG TAB PO SCH (08:26)
[2017-03-14] MEDS: SODIUM BICARBONATE 325 MG TAB PO SCH ×3 (08:26→20:44)
[2017-03-14] MEDS: **hydrALAZINE** 50 MG TAB PO SCH ×3 (08:27→20:46)
[2017-03-14] MEDS: BISOPROLOL FUM 2.5 MG PER 1/2TAB PO SCH (08:27)
[2017-03-14] MEDS: FERROUS GLUCONATE 324 MG TAB PO SCH ×2 (08:28→20:45)
[2017-03-14] MEDS: CLOPIDOGREL 75 MG TAB PO SCH (08:28)
[2017-03-14] MEDS: VITAMIN D 1,000 INTERNATIONAL UNITS TABLET PO SCH (08:28)
[2017-03-14] MEDS: OMEPRAZOLE 20 MG CAP PO SCH ×2 (08:28→20:45)
[2017-03-14] MEDS: amLODIPine 10 MG TAB PO SCH (08:28)
[2017-03-14] MEDS: ASPIRIN 81 MG ENTERIC TAB PO SCH (08:28)
[2017-03-14] MEDS ORDERED: FUROSEMIDE 40 MG TAB PO SCH (09:00)
--- NOTE | 2017-03-14 10:56 | IPNPDOC ---
Subjective Date Seen The patient was seen on 03/14/17. Subjective Chief Complaint/HPI The patient is a 77-year-old male admitted with a reason for visit of Abdominal Pain,Atypical Chest Pain, Groin Pain. Events since last encounter No further CP/jaw pain or abdominal pain. He reports that the abdominal pain was from having a full bladder and resolved as soon as he emptied this. No n/v. Declines breakfast "I don't eat hospital food" Constitutional: Denies: Chills, Fever Pulmonary: Denies: Dyspnea, Cough Cardiovascular: Denies: Chest Pain, Palpitations, Orthopnea Gastrointestinal: Denies: Nausea, Vomiting, Abdominal Pain, Diarrhea, Constipation Objective Physical Examination General Exam: Positive: Alert, Cooperative, No Acute Distress Chest Exam: Positive: Clear to auscultation, Normal air movement, Negative: Rales, Wheezing Heart Exam: Positive: Rate Normal, Normal S1, Normal S2, Negative: Gallops, Murmurs, Rubs Abdomen Exam: Positive: Normal bowel sounds, Soft, Tenderness (right groin with ecchymosis and soft swelling at previous catheter site with bandage in place. tender. No surrounding erythema), Negative: Hepatospenomegaly, Mass Extremity Exam: Negative: Clubbing, Cyanosis, Edema Skin Exam: Negative: Rash, Breakdown Neuro Exam: Positive: Sensation Intact, Cranial Nerves 3-12 NL Psych Exam: Positive: Mental status NL, Oriented x 3 (person place and time) Assessment /Plan Problems (1) Anemia Status: Acute Problem Text: Acute on chronnic anemia. Baseline Hgb 13. Now 9 on ASA/Plavix. Continue PPI BID. Monitor trend x 1 more day prior to discharge. (2) Atypical chest pain Problem Text: Patient will be admitted to PCU for continued cardiac monitoring - no arrhythmias overnight Troponin trending down. no further CP/jaw pain Patient had an EKG in the ER which did not reveal any ST segment changes compared to previous. Per Dr. Salazar, he is stable for d/c home today (3) Recent non-ST elevation myocardial infarction (NSTEMI) Problem Text: Patient had a recent non-ST elevation myocardial infarction on 03/11/2017. Patient was transferred to [facility] for cardiac catheterization s/ p stents 2. Continue aspirin 81 mg and clopidogrel 75 mg (4) Abdominal pain Status: Resolved Problem Text: Patient has pain in the right lower quadrant/groin. This is most likely secondary to cardiac catheterization. He may also possibly be ileitis/colitis per CT scan of abdomen and pelvis Blood cultures 2 pending On Zosyn, but I am not convinced that he need this. He is afebrile, WBC normal. No further pain. D/W attending need for further abx (5) Hyperlipemia Problem Text: Continue patient on home dose atorvastatin. (6) CKD (chronic kidney disease), stage IV Status: Chronic Response to Treatment: Stable Problem Text: Stabe - Follows with Nephrology as outpatient (7) HTN (hypertension) Status: Chronic Problem Text: Continue patient's home dose amlodipine 10 mg by mouth daily, bisoprolol 2.5 mg daily, hydralazine 100 mg daily. Holding patient's furosemide 40 mg by mouth daily, unsure if patient is still taking this medication. (8) History of bladder cancer Status: Resolved Problem Text: Patient has a history of bladder cancer with surgery in September 2014. This was performed by Dr. Paiz. Plan/VTE VTE Prophylaxis Ordered?: Yes (Knee high compressions. No anticoag d/t acute on chronic anemia) Disposition Continue to monitor today. D/C in am if Hgb stable VS, I&O, 24H, Fishbone Vital Signs/I&O Vital Signs Date Time Temp Pulse Resp B/P (MAP) Pulse Ox O2 Delivery O2 Flow Rate FiO2 03/14/17 08:27 57 142/71 03/14/17 07:15 97.1 20 99 Room Air I&O- Last 24 Hours up to 6 AM 03/14/17 06:00 Intake Total 400 ml Output Total 850 ml Balance -450 ml Laboratory Data 24H LABS Laboratory Tests 2 03/13/17 12:55: White Blood Count 6.7, Red Blood Count 3.25L, Hemoglobin 10.1L, Hematocrit 30.8L , Mean Corpuscular Volume 94.9, Mean Corpuscular Hemoglobin 31.1, Mean Corpuscular Hemoglobin Concent 32.8, Red Cell Distribution Width 15.1H, Platelet Count 181, Neutrophils (%) (Auto) 79.3H, Lymphocytes (%) (Auto) 10.6L, Monocytes (%) (Auto) 5.9H, Eosinophils (%) (Auto) 1.7, Basophils (%) (Auto) 0.2 , Neutrophils # (Auto) 5.3, Lymphocytes # (Auto) 0.7L, Monocytes # (Auto) 0.4, Eosinophils # (Auto) 0.1, Basophils # (Auto) 0.0, Large Unclassified Cells % 2.3 , Large Unclassified Cells # 0.2, Prothrombin Time 12.3, Prothromb Time International Ratio 0.90, Activated Partial Thromboplast Time 20.0L, Anion Gap 6L, Glomerular Filtration Rate 23.6L, Calcium Level 8.4L, Aspartate Amino Transf (AST/SGOT) 71H, Alanine Aminotransferase (ALT/SGPT) 47, Alkaline Phosphatase 130H, Total Bilirubin 0.4, Direct Bilirubin 0.1, Total Creatine Kinase 158, Creatine Kinase MB 3.1, Creatine Kinase MB Relative Index 1.96, Troponin I 0.47H, Total Protein 6.8, Albumin 3.3, Albumin/Globulin Ratio 0.94L, Lipase 246, Thyroid Stimulating Hormone (TSH) 2.450, Free Thyroxine 0.89 03/13/17 15:23: Total Creatine Kinase 140, Creatine Kinase MB 2.8, Creatine Kinase MB Relative Index 2.00, Troponin I 0.43H 03/13/17 23:33: Total Creatine Kinase 118, Creatine Kinase MB 2.4, Creatine Kinase MB Relative Index 2.03, Troponin I 0.34#H 03/14/17 04:28: White Blood Count 4.2, Red Blood Count 2.94L, Hemoglobin 9.0L, Hematocrit 27.1L , Mean Corpuscular Volume 92.2, Mean Corpuscular Hemoglobin 30.7, Mean Corpuscular Hemoglobin Concent 33.4, Red Cell Distribution Width 15.1H, Platelet Count 150, Neutrophils (%) (Auto) 73.5H, Lymphocytes (%) (Auto) 14.5L, Monocytes (%) (Auto) 6.6H, Eosinophils (%) (Auto) 3.4H, Basophils (%) (Auto) 0.3 , Neutrophils # (Auto) 3.1, Lymphocytes # (Auto) 0.7L, Monocytes # (Auto) 0.3, Eosinophils # (Auto) 0.1, Basophils # (Auto) 0.0, Large Unclassified Cells % 1.7 , Large Unclassified Cells # 0.1, Anion Gap 8, Glomerular Filtration Rate 25.7L , Calcium Level 8.1L, Total Creatine Kinase 99, Creatine Kinase MB 1.5, Creatine Kinase MB Relative Index 1.51, Troponin I 0.30H, Blood Urea Nitrogen 46H, Creatinine 2.58H, Sodium Level 144, Potassium Level 3.3L, Chloride Level 110H, Carbon Dioxide Level 26, Magnesium Level 2.3 CBC/BMP Laboratory Tests 03/13/17 12:55 Red Blood Count 3.25 L, Mean Corpuscular Volume 94.9, Mean Corpuscular Hemoglobin 31.1, Mean Corpuscular Hemoglobin Concent 32.8, Red Cell Distribution Width 15.1 H, Neutrophils (%) (Auto) 79.3 H, Lymphocytes (%) (Auto ) 10.6 L, Monocytes (%) (Auto) 5.9 H, Eosinophils (%) (Auto) 1.7, Basophils (%) (Auto) 0.2, Neutrophils # (Auto) 5.3, Lymphocytes # (Auto) 0.7 L, Monocytes # ( Auto) 0.4, Eosinophils # (Auto) 0.1, Basophils # (Auto) 0.0 03/14/17 04:28 Red Blood Count 2.94 L, Mean Corpuscular Volume 92.2, Mean Corpuscular Hemoglobin 30.7, Mean Corpuscular Hemoglobin Concent 33.4, Red Cell Distribution Width 15.1 H, Neutrophils (%) (Auto) 73.5 H, Lymphocytes (%) (Auto ) 14.5 L, Monocytes (%) (Auto) 6.6 H, Eosinophils (%) (Auto) 3.4 H, Basophils (% ) (Auto) 0.3, Neutrophils # (Auto) 3.1, Lymphocytes # (Auto) 0.7 L, Monocytes # (Auto) 0.3, Eosinophils # (Auto) 0.1, Basophils # (Auto) 0.0, Calcium Level 8.1 L, Total Creatine Kinase 99 Microbiology Microbiology 03/13/17 Blood Culture, Received Pending 03/13/17 Blood Culture, Received Pending TOPHER ESCAMILLA PA-C Mar 14, 2017 10:56
[2017-03-14 12:00] VITALS: BP 135/83
[2017-03-14 16:00] VITALS: BP 142/83
[2017-03-14] MEDS ORDERED: ACETAMINOPHEN TAB 650MG DOSE (2X325MG) PO PRN (17:30)
--- NOTE | 2017-03-14 19:52 | CR ---
DATE OF CONSULTATION: 03/14/2017 REFERRING PHYSICIAN: Dr. Oneill STUDY WAS PERFORMED ON: 03/14/2017 INDICATION: Chest pain and elevated troponin. HISTORY OF PRESENT ILLNESS: Mr. Raman is known to me. He is a very pleasant 77-year-old man who has a history of coronary artery disease with remote interventions to all three coronary arteries. He originally presented to [facility] on 03/11/2017. I referred him from our office after blood drawn previous days revealed elevated troponin and he had symptoms highly suggestive of unstable angina. He was transferred to [facility] in [place] and underwent urgent coronary angiogram revealing critical two-vessel disease and two drug-eluting stents were deployed. He was discharged home the following day, but came yesterday after he had two episodes of chest discomfort radiating to his jaw. Because his troponin was still mildly elevated and he had concomitant abdominal pain, and a CT scan of the abdomen revealed peritoneal inflammation, he was kept for observation. Overnight, his troponin continued at a downward trend. The initial troponin was 0.47 and now, this morning, is down to 0.3. CK and CK-MB remain negative. The patient has had no recurrence of chest or jaw discomfort. He feels good and would like to go home. He tells me that the abdominal pain essentially resolved after he was able to empty his bladder PAST MEDICAL HISTORY: 1. Coronary artery disease, as above. 2. 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 He needs to self catheterize himself. He has a neobladder. 3. Nonobstructive carotid artery disease. 4. Hypertension. 5. Dyslipidemia. 6. Cardiac pacemaker. 7. Chronic renal insufficiency, stage IV. SURGICAL HISTORY: Positive for: 1. Appendectomy. 2. Carpal tunnel on the right side. 3. Bilateral cataracts. 4. Inguinal hernia repair. 5. Laminectomy. 6. Transurethral resection of the prostate with robotic-assisted cystoprostatectomy with pelvic lymph node dissection and neobladder creation in September 2014. OUTPATIENT MEDICATIONS: - Plavix 75 mg a day - Advair Diskus - amlodipine 10 mg a day - aspirin 81 mg a day - Benadryl - bisoprolol 2.5 mg a day - Compazine as needed - iron gluconate 325 mg two tablets a day - furosemide 20 mg a day - hydralazine 100 mg three times a day - levothyroxine 25 mg a day - I-Caps - nortriptyline 50 mg a day - omeprazole 20 mg a day - Proventil as needed - sodium bicarbonate 650 mg two tablets twice a day - Tylenol - vitamin D - vitamin B. He reports INTOLERANCE TO X-RAY DYE, RADIOLOGY CONTRAST, SULFA, HALOPERIDOL, HYDROCODONE, MORPHINE, TAPE. REVIEW OF SYSTEMS: He denies any recent fever, chills, nausea, vomiting, diarrhea. He did have recent chest discomfort consistent with angina as per history of present illness (HPI). No significant shortness of breath with his level of activity. No blood in his urine, but he does have chronic obstructive symptoms and needs to self catheterize himself. No peripheral edema. No near syncope/syncope. PHYSICAL EXAMINATION: Mr. Raman is an elderly man. He appears approximately his age, in no distress, alert and oriented and pleasant. Blood pressure 142/71, heart rate has been in 50s. He is afebrile. Saturation 99% on room air. Weight was documented at 85 kg yesterday. Jugular venous pulse is not elevated. Lungs are clear to auscultation. Heart examination reveals regular rhythm. I do not appreciate distinct murmur, rub or gallop. Abdomen is soft. No tenderness. No rebound tenderness. No hepatosplenomegaly. Extremities are free of edema and his peripheral pulses are detectable, even though not of good quality. Neurologically he is intact. LABORATORY DATA: As of this morning, potassium was 3.3, BUN 46, creatinine 2.6 for a GFR 27, glucose 99. He had four sets of CK and CK-MB. They are all negative. Troponin on admission 0.7 and has been declining since. CBC: Hemoglobin 9.0, hematocrit 27 and platelet count 150. His electrocardiogram reveals presence of sinus rhythm with ventricular rate 62 beats per minute and is otherwise unremarkable. There are some borderline inferior wall Q-waves. There are not very convincing. Electrocardiogram (ECG) this morning was pending at the time of my visit. He had CT of the pelvis that was interpreted as revealing no retroperitoneal hematoma, but there were inflammatory peritoneal changes close to see in the terminal ileum. Chest x-ray revealed no abnormalities. There is no cardiomegaly. No effusion. There is a dual-chamber pacemaker. ASSESSMENT/PLAN: Mr. Raman is a 77-hour-old man who is two days after two-vessel coronary intervention with drug-eluting stents. He presents with two brief episodes of chest discomfort with radiation to his jaw. Each of them did not last more than a minute or two. Even though the symptoms sounds somewhat suspicious for angina , they occurred without any obvious trigger, it would be very unusual to have anginal symptoms his early after intervention. I contacted Dr. Phil White in [facility] and he confirmed that there was no residual obstructive disease. Consequently, I believe the patient can be discharged home on chronic medications. I stressed the importance of dual antiplatelet therapy. As far as the abdominal pain is concerned, he certainly does not have a retroperitoneal hematoma from his access site. He received a couple of doses of antibiotics, but the significance of the findings on CT is unclear in my mind. He tells me that after he catheterizes his bladder, his discomfort completely disappears very rapidly. I intend to see the patient on followup on outpatient basis. AMBER
[2017-03-14 19:54] VITALS: BP 136/71
[2017-03-14] MEDS: NORTRIPTYLINE 25 MG CAP PO SCH (20:44)
[2017-03-14] MEDS: ATORVASTATIN 20 MG TAB PO SCH (20:45)
[2017-03-14] MEDS: POTASSIUM CHLORIDE 10 MEQ SR TABLET PO SCH (20:46)
[2017-03-14] MEDS ORDERED: CEFUROXIME 500 MG TAB PO SCH (21:00)
[2017-03-15 00:14] VITALS: BP 115/60
[2017-03-15 04:27] VITALS: BP 128/64
[2017-03-15 05:43] LABS: BASO % 0.3 % (0.0-1.0); EOS # 0.2 K/mm3 (0.0-0.50); EOS % 4.8 % (0.0-3.0); LARGE UNSTAINED CELL # 0.1 K/mm3 (0.0-0.4); LARGE UNSTAINED CELL % 2.7 % (0.0-4.0); LYMPH # 0.8 K/mm3 (1.5-4.5); LYMPH % 16.8 % (24.0-44.0); MEAN CORPUSCULAR HGB CONC 33.5 g/dl (32.0-36.5); MEAN CORPUSCULAR VOLUME 92.5 fl (80.0-96.0); MONO # 0.3 K/mm3 (0.0-0.8); MONO % 7.5 % (0.0-5.0); NEUTROPHILS # 2.9 K/mm3 (1.8-7.7); NEUTROPHILS % 67.9 % (36.0-66.0); PLATELET COUNT, AUTOMATED 158 k/mm3 (150-450); RED CELL DISTRIBUTION WIDTH 15.3 % (11.5-14.5); WHITE BLOOD COUNT 4.3 K/mm3 (4.0-10.0)
[2017-03-15] MEDS: LEVOTHYROXINE 25MCG TABLET (0.025MG) PO SCH (05:51)
[2017-03-15 06:05] LABS: CALCIUM LEVEL 8.1 MG/DL (8.8-10.2); CREATININE FOR GFR 2.67 MG/DL (0.70-1.30); GLOMERULAR FILTRATION RATE 24.7 (>42); MAGNESIUM LEVEL 2.3 MG/DL (1.8-2.4); POTASSIUM SERUM 3.4 MEQ/L (3.5-5.1)
[2017-03-15 07:54] VITALS: BP 147/85
[2017-03-15] MEDS: OMEPRAZOLE 20 MG CAP PO SCH (09:03)
[2017-03-15] MEDS: **hydrALAZINE** 50 MG TAB PO SCH (09:03)
[2017-03-15] MEDS: POTASSIUM CHLORIDE 10 MEQ SR TABLET PO SCH (09:03)
[2017-03-15 09:04] VITALS: BP 147/85
[2017-03-15] MEDS: ASPIRIN 81 MG ENTERIC TAB PO SCH (09:04)
[2017-03-15] MEDS: SODIUM BICARBONATE 325 MG TAB PO SCH (09:04)
[2017-03-15] MEDS: amLODIPine 10 MG TAB PO SCH (09:04)
[2017-03-15] MEDS: CLOPIDOGREL 75 MG TAB PO SCH (09:04)
[2017-03-15] MEDS: FERROUS GLUCONATE 324 MG TAB PO SCH (09:04)
[2017-03-15] MEDS: BISOPROLOL FUM 2.5 MG PER 1/2TAB PO SCH (09:04)
[2017-03-15] MEDS: CYANOCOBALAMIN 500 MCG TAB PO SCH (09:04)
[2017-03-15] MEDS: VITAMIN D 1,000 INTERNATIONAL UNITS TABLET PO SCH (09:04)
[2017-03-15] MEDS ORDERED: POTA10CA PO (09:57)
--- NOTE | 2017-03-24 10:12 | DS.PDOC ---
Discharge Summary General Date of Admission Mar 13, 2017 at 17:25 Date of Discharge March 15, 2017 Primary Care Physician: James Bianchi MD Attending Physician: YISSEL APARICIO DO Specialist/Consultants Involve: Perri Salazar MD Discharge Summary PROCEDURES PERFORMED DURING STAY: [None]. ADMITTING DIAGNOSES: 1. atypical chest pain 2. recent NSTEMI 3. abdominal pain 4. groin pain 5. chronic anemia 6. hyperlipidemia 7. CKD stage IV 8. history of bladder cancer DISCHARGE DIAGNOSES: 1. atypical chest pain 2. recent NSTEMI 3. abdominal pain 4. groin pain 5. anemia 6. hyperlipidemia 7. CKD stage IV 8. history of bladder cancer COMPLICATIONS/CHIEF COMPLAINT: Abdominal Pain,Atypical Chest Pain, Groin Pain. HISTORY OF PRESENT ILLNESS: Patient is a 77-year-old male with past medical history significant for cardiac stents placed 2 days ago, none ST elevation myocardial infarction, cardiac pacemaker, hypertension, hyperlipidemia, chronic kidney disease stage IV presents to the emergency room with the complaint of jaw pain and groin pain. Patient recently had a NSTEMI on 03/11/2017. Patient presented to the ER at [facility] with atypical chest pain. Patient was then transferred to [facility] for 2 cardiac caths. Patient remembered feeling fine yesterday and was sent home. Upon arriving home patient did not feel right. He started having some soreness in his right groin and right lower abdomen. Patient also started having some jaw pain across his lower jaw bilaterally. He describes it as sore and rates it at 7 out of 10. Patient is also still having some of this jaw pain in the ER. Patient states she's had this in the past and usually has a headache but does not have this today. Patient states that the groin pain was due to the cardiac cath's. Patient has not been taking anything for the pain. Patient was originally in the ER with his with his life has left for other reasons. She will return later tonight. Patient states that she would remember more. Patient does not remember the exact details of arriving to the hospital today. He states he had a lot going on. Does not remember having any chest pain. HOSPITAL COURSE: Patient was admitted to the hospital. Dr. Salazar was consulted , and cardiac enzymes were ordered. Dr. Salazar checked with Dr. White, who agreed that ischemic pain was unlikely this soon after intervention. Troponin was somewhat elevated but continued to trend downwards. Patient reported that his abdominal pain resolved after voiding. He was monitored for chest discomfort or signs of ischemia, and had none. As he remained pain free during his hospitalization and cardiac enzymes were reassuring, he was clear for discharge from a cardiac standpoint. He did have a small drop in hemoglobin the next day, and was monitored for bleeding. By 03/15 hemoglobin was trending upwards and patient was ready for discharge. DISCHARGE MEDICATIONS: Please see below. ALLERGIES: Please see below. PHYSICAL EXAMINATION ON DISCHARGE: VITAL SIGNS: Please see below. GENERAL: elderly male resting comfortably HEENT: MMM NECK: supple CARDIOVASCULAR EXAMINATION: regular, without murmurs, rubs or gallops RESPIRATORY EXAMINATION: clear to auscultation ABDOMINAL EXAMINATION: soft, nontender and nondistended EXTREMITIES: no edema SKIN: no rash, mild bruising NEUROLOGICAL EXAMINATION: nonfocal LABORATORY DATA: Please see below. IMAGING: CXR: Essentially negative portable chest. CT abdomen/pelvis: There is no retroperitoneal hematoma. There is no free intraperitoneal fluid. No pneumoperitoneum. There has been a cystectomy bladder reconstruction. Reconstructed bladder is unremarkable except for a bladder diverticulum. There are focal inflammatory changes in the peritoneum adjacent to the cecum and terminal ileum, not present previously. There is no focal fluid collection to suggest abscess. I cannot identify the appendix. There is a circumferential bowel anastomotic suture line in the distal ileum not present previously. There is a small bowel "feces sign" within this portion of the ileum compatible with stasis. However, there is no evidence of bowel obstruction. PROGNOSIS: good ACTIVITY: as tolerated DIET: low cholesterol, low sodium DISCHARGE PLAN: home DISPOSITION: 01 Home, Self-Care. DISCHARGE INSTRUCTIONS: 1. DC home to follow up with PCP and cardiology 2. Take al medications as prescribed 3. Seek urgent medical attention for chest discomfort ITEMS TO FOLLOWUP ON ON OUTPATIENT: 1. CAD DISCHARGE CONDITION: [Stable]. TIME SPENT ON DISCHARGE: Greater than 15 minutes. Discharge Medications Scheduled Amlodipine Besylate (Amlodipine Besylate) 10 Mg Tab, 10 MG PO DAILY, (Reported) Aspirin (Aspirin 81) 81 Mg Tab, 81 MG PO DAILY, (Reported) Atorvastatin Calcium (Atorvastatin Calcium) 40 Mg Tab, 40 MG PO QHS, (Reported) Bisoprolol Fumarate (Bisoprolol Fumarate) 5 Mg Tab, 2.5 MG PO DAILY, (Reported) Clopidogrel Bisulfate (Clopidogrel) 75 Mg Tab, 75 MG PO DAILY, (Reported) Cyanocobalamin (Vitamin B12) 1,000 Mcg Tab, 1,000 MCG PO DAILY, (Reported) Ferrous Gluconate (Ferrous Gluconate) 324 Mg Tab, 324 MG PO BID, (Reported) Furosemide (Furosemide) 40 Mg Tab, 40 MG PO DAILY, (Reported) Levothyroxine Sodium (Synthroid) 25 Mcg Tab, 25 MCG PO DAILY, (Reported) Nortriptyline HCl (Nortriptyline HCl) 50 Mg Cap, 50 MG PO QHS, (Reported) Omeprazole (Omeprazole) 40 Mg Cap, 40 MG PO BID, (Reported) Potassium Chloride (Klor-Con M10) 10 Meq Tabcr, 20 MEQ PO BID Sodium Bicarbonate (Sodium Bicarbonate) 650 Mg Tab, 1,950 MG PO TID, (Reported) Vitamin D (Vitamin D) 1,000 Unit Cap, 1,000 UNIT PO DAILY, (Reported) hydrALAZINE HCL (Hydralazine HCl) 100 Mg Tab, 100 MG PO TID, (Reported) HOLD FOR SYSTOLIC BP <130 Scheduled PRN Docusate Sodium (Colace) 100 Mg Cap, 100 MG PO BIDP PRN for BOWEL CARE/ CONSTIPATION, (Reported) Loperamide Hcl (Imodium A-D) 2 Mg Tab, 2 MG PO DAILYPRN PRN for DIARRHEA, ( Reported) Polyethylene Glycol (Miralax) 1 Pow Pow, 17 GM PO DAILYPRN PRN for CONSTIPATION, (Reported) Allergies Coded Allergies: Contrast Media (Verified Allergy, Unknown, 06/17/14) Iodine (Verified Allergy, Unknown, 12/22/12) Sulfa Drugs (Verified Allergy, Unknown, 12/22/12) TAPE (Verified Allergy, Unknown, EKG PADS - skin irritation, 07/16/14) Haloperidol (Unverified Adverse Reaction, Severe, UNRESPONSIVE FOR 24 HOURS, 12/22/14) Hydrocodone (Unverified Adverse Reaction, Mild, "GOES INTO ORBIT", 12/22/14) Morphine (Unverified Adverse Reaction, Mild, "GOES INTO ORBIT", 12/22/14) YISSEL APARICIO DO Mar 24, 2017 10:12
== END 2017-03-15 10:37 | disposition home or self-care (01) ==
LOC: M ED 14:28 → M ED INP 17:25 → M PCU 20:51
PROVIDERS: ADMIT Hospitalist; ATTEND Family Medicine
DX: R07.89 Other chest pain (principal); D53.9 Nutritional anemia, unspecified; E78.4 Other hyperlipidemia; N18.4 Chronic kidney disease, stage 4 (severe); K21.9 Gastro-esophageal reflux disease without esophagitis; Z98.61 Coronary angioplasty status; I25.10 Atherosclerotic heart disease of native coronary artery without angina pectoris; Z79.82 Long term (current) use of aspirin; Z79.899 Other long term (current) drug therapy; Z88.2 Allergy status to sulfonamides; Z88.5 Allergy status to narcotic agent; Z91.048 Other nonmedicinal substance allergy status; Z87.891 Personal history of nicotine dependence
CPT/HCPCS: 36415; 71010; 74176; 80048; 80076; 82550; 82553; 83690; 83735; 84439; 84443; 84484; 85025; 85610; 85730; 87040; 93005; 93041; 94760; 96366; 99285; G0378; J2543

== ENCOUNTER → 2017-03-20 | Outpatient (REF) | payer MEDICARE ==
[~2017-03-20] MED LIST changes: +ATOR40TA75 PO; +MENSCAP2 PO; +POTA10CA PO; +SERT50TA PO; +VITA250L PO
[2017-03-20 12:30] LABS: MEAN CORPUSCULAR HEMOGLOBIN 30.8 pg (27.0-33.0); MEAN CORPUSCULAR HGB CONC 32.3 g/dl (32.0-36.5); MEAN CORPUSCULAR VOLUME 95.3 fl (80.0-96.0); RED CELL DISTRIBUTION WIDTH 15.1 % (11.5-14.5); RETIC HEMOGLOBIN CONTENT CHr 31.1 PG (24-36); RETICULOCYTE % 2.9 % (0.5-1.5); WHITE BLOOD COUNT 6.7 K/mm3 (4.0-10.0)
[2017-03-20 12:40] LABS: CALCIUM LEVEL 8.9 MG/DL (8.8-10.2); CREATININE FOR GFR 2.63 MG/DL (0.70-1.30); GLOMERULAR FILTRATION RATE 25.1 (>42); PERCENT SATURATION 15.7 % (19.7-37.4)
[2017-03-20 12:51] LABS: POTASSIUM SERUM 5.3 MEQ/L (3.5-5.1)
== END ==
LOC: M SFHCADAM 09:46
PROVIDERS: ATTEND Family Medicine
DX: N18.4 Chronic kidney disease, stage 4 (severe) (principal); D50.0 Iron deficiency anemia secondary to blood loss (chronic)
CPT/HCPCS: 80048; 82728; 83550; 85027; 85046; G0463

== ENCOUNTER → 2017-05-01 | Outpatient (CLI) | payer MEDICARE ==
[2017-05-01 13:29] LABS: MEAN CORPUSCULAR HEMOGLOBIN 30.4 pg (27.0-33.0); MEAN CORPUSCULAR HGB CONC 32.5 g/dl (32.0-36.5); MEAN CORPUSCULAR VOLUME 93.4 fl (80.0-96.0); RED CELL DISTRIBUTION WIDTH 15.9 % (11.5-14.5); WHITE BLOOD COUNT 5.9 K/mm3 (4.0-10.0)
[2017-05-01 13:53] LABS: ALBUMIN 3.1 GM/DL (3.2-5.2); CALCIUM LEVEL 8.6 MG/DL (8.8-10.2); CREATININE FOR GFR 2.85 MG/DL (0.70-1.30); GLOMERULAR FILTRATION RATE 22.9 (>42); PHOSPHORUS LEVEL 3.7 MG/DL (2.5-4.9); POTASSIUM SERUM 4.3 MEQ/L (3.5-5.1)
== END ==
LOC: M SMT 11:41
PROVIDERS: ATTEND Family Medicine
DX: D50.0 Iron deficiency anemia secondary to blood loss (chronic) (principal); N18.4 Chronic kidney disease, stage 4 (severe)

== ENCOUNTER → 2017-05-14 | Outpatient (REF) | payer MEDICARE | LOC: M LAB REF 13:53 | PROVIDERS: ATTEND Internal Medicine Medical Oncology | DX: Z08 Encounter for follow-up examination after completed treatment for malignant neoplasm (principal); Z85.51 Personal history of malignant neoplasm of bladder ==

== ENCOUNTER → 2017-05-20 | Outpatient (CLI) | payer MEDICARE ==
--- NOTE | 2017-05-21 09:30 | REP ---
PET/CT: History: High-grade urothelial cancer of the bladder. History of prostate carcinoma. Significant increase in liver function studies and alkaline phosphatase. Restaging. Weight loss. The patient is status post cystectomy and neobladder reconstruction. Comparisons: Comparison CT study of the chest is from January 01, 2017 and of the abdomen March 13, 2017. TECHNIQUE: 48 minutes following the intravenous injection of a 10.2 mCi dose of F-18 FDG, three-dimensional PET scintigraphy is acquired from the skull base to the proximal thighs. Triplanar noncontrast CT scanning is acquired through the same anatomic range for attenuation correction, and image registration with scan parameters optimized to minimize radiation exposure to the patient. PET scintigraphy and CT datasets were fused and displayed on a workstation with multiplanar and projection display capability. PET/CT Findings: Head and neck uptake is unremarkable. In the chest, there are patchy new interstitial infiltrates in the lower lobes bilaterally and posteriorly in the right upper lobe. These are associated with ill-defined areas of mildly hypermetabolic FDG distribution, maximum standard uptake value extending up to 2.7. These are nonspecific. They could be inflammatory or conceivably represent areas of lymphangitic neoplasm. There is a 9 mm nodule in the left lower lobe which is not hypermetabolic. Maximum standard uptake value in this is 1.3. There is evidence of COPD and there are granulomatous calcifications. No hypermetabolic mediastinal or hilar uptake is seen in the chest. In the abdomen and pelvis, there is normal FDG distribution to the liver, spleen, gastrointestinal, and genitourinary tracts. There is FDG accumulation associated with the distal uretero-neobladder anastomoses in addition to the neobladder. There is no hypermetabolic adenopathy in the abdomen or pelvis. No abnormal skeletal hypermetabolic uptake is seen. Impression: There is nonspecific infiltrate like hypermetabolic uptake in the lower lobes of the lungs and in the posterior aspect of the right upper lobe. New interstitial infiltrates are seen here. Question lymphangitic spread versus inflammatory pulmonary parenchymal disease. No other suspicious hypermetabolic uptake. Signed by Anthony Richter MD 05/21/2017 01:40 P
== END ==
LOC: M PLARAD 15:17
PROVIDERS: ATTEND Internal Medicine Medical Oncology
DX: R94.5 Abnormal results of liver function studies (principal); R74.8 Abnormal levels of other serum enzymes; C67.9 Malignant neoplasm of bladder, unspecified
CPT/HCPCS: 78815; A9552

== ENCOUNTER → 2017-05-22 | Outpatient (CLI) | payer MEDICARE ==
--- NOTE | 2017-05-22 14:51 | REP ---
WHOLE BODY RADIONUCLIDE BONE SCAN: HISTORY: High-grade urothelial carcinoma of the bladder. History of prostate cancer. COMPARISON STUDY: May 26, 2014. TECHNIQUE: 21.7 mCi technetium 99m MDP is injected and standard whole body bone scan imaging is acquired. SCINTIGRAPHIC FINDINGS: There is a normal distribution of skeletal tracer with uptake in bilateral kidneys and in the reconstructed urinary bladder within the pelvis. There is no evidence of skeletal metastatic disease. A levoconvex lumbar curvature is noted and there is discogenic uptake at L3-4. This is unchanged. IMPRESSION: No evidence of skeletal metastatic disease. Signed by Anthony Richter MD 05/23/2017 10:02 A
== END ==
LOC: M RAD 09:53
PROVIDERS: ATTEND Internal Medicine Medical Oncology
DX: C67.9 Malignant neoplasm of bladder, unspecified (principal); Z85.46 Personal history of malignant neoplasm of prostate
CPT/HCPCS: 78306; A9503

== ENCOUNTER → 2017-05-30 | Outpatient (REF) | payer MEDICARE ==
[2017-05-30 13:52] LABS: BILIRUBIN,DIRECT 0.4 MG/DL (0.0-0.2); GAMMA GLUTAMYLTRANSPEPTIDASE 795 U/L (15-85)
[2017-05-30 14:07] LABS: HEPATITIS B SURFACE ANTIBODY NEGATIVE (POSITIVE)
== END ==
LOC: M LAB REF 12:05
PROVIDERS: ATTEND Internal Medicine Medical Oncology
DX: C67.9 Malignant neoplasm of bladder, unspecified (principal)

== ENCOUNTER 2017-06-03 14:30 | Emergency (ER) | payer MEDICARE ==
[~2017-06-03] VITALS: Ht 177.8 cm; Wt 78.2 kg
[~2017-06-03 14:30] MED LIST changes: -MENSCAP2 PO; -SERT50TA PO; -VITA250L PO
[2017-06-03] MEDS ORDERED: VITA250L PO (14:57)
[2017-06-03] MEDS ORDERED: PROBCAP4 PO (14:57)
[2017-06-03] MEDS ORDERED: SERT50TA PO (14:57)
[2017-06-03] MEDS ORDERED: OCUVTAB PO (14:57)
[2017-06-03] MEDS ORDERED: MENSCAP2 PO (14:57)
--- NOTE | 2017-06-03 16:45 | REP ---
Noncontrast head CT: History: Altered mental status. Comparison study: 03/31/2015. Findings: Digital lateral account support associate radiograph is unremarkable. Bone window settings demonstrate heavy vascular calcification in the distal internal carotid arteries bilaterally. Bony calvarium is intact. Visualized paranasal sinuses are clear. No intraorbital abnormality is seen. On soft tissue window settings, there is mild to moderate diffuse cerebral atrophy. There is no evidence of intracranial hemorrhage. No mass, infarct, or extra-axial fluid collection is seen. Impression: Vascular calcification and diffuse atrophy. No acute intracranial abnormality. Signed by Anthony Richter MD 06/03/2017 05:25 P
--- NOTE | 2017-06-03 16:57 | REP ---
Clinical: Altered mental status . Comparison: 03/13/2017 . Technique: PA and lateral. Findings: The mediastinum and cardiac silhouette are normal. The lung celeste demonstrate chronic changes without acute consolidation, effusion, or pneumothorax. The skeletal structures are intact and normal. Impression: 1. No acute cardiopulmonary process. Signed by Lico Willingham MD 06/03/2017 04:49 P
--- NOTE | 2017-06-03 17:09 | REP ---
CT LUMBAR SPINE WITHOUT CONTRAST: 06/03/2017. COMPARISON: 07/29/2016. CLINICAL HISTORY: Back pain. TECHNIQUE: Standard noncontrast trauma protocol with coronal and sagittal bone window reconstructions provided. FINDINGS: Normal lordosis is slightly reduced but unchanged from last year's examination. I see no compression deformity. Coronal reconstruction show a levoconvex curve centered at L3-4. There is vacuum phenomenon and disc space narrowing along the right lateral margin of that disc space. Marginal osteophytes are seen throughout either anteriorly or laterally. No compression deformity. There is no spondylolysis or spondylolisthesis. At T10-11, T11-12, T12-L1 and L1-2 disc levels show no significant disc bulge herniation and no spinal or foraminal stenosis. At L2-3 there is a broad-based disc bulge, ligamentum and facet hypertrophy causing some moderate central canal stenosis without significant foraminal encroachment. At L3-4 there is also a broad-based disc bulge, ligamentum and facet hypertrophy lateral recess stenosis and fairly severe central canal stenosis. The right foraminal stenosis due to disc material is again seen along with facet and marginal osteophyte formation. The left L3 root is without nerve root compression. At L4-L5 broad-based disc bulge, ligamentum and facet hypertrophy with lateral recess stenosis and moderate central canal stenosis, unchanged. Combined factors cause some foraminal encroachment and L4 nerve root mild compression, all unchanged. At L5-S1 broad-based disc bulge with flattening the ventral thecal sac. This abuts the S1 nerve roots but does not displace them. Cross-sectional area of the canal was adequate. The foramina showed no definite nerve root compression but some loss of perineural fat. Facet arthropathy throughout as well as sclerosis at the iliac margins of SI joints superiorly and a bone island in the right sacral ala laterally, unchanged. Atherosclerotic calcifications of the aorta and iliac vessels. Bladder has a prominent diverticulum or postsurgical change anterior superiorly on the right from multiple anastomotic bowel sutures in the right lower quadrant as before. IMPRESSION: 1. Diffuse degenerative disc changes as described with central canal stenosis. Severe at L3-4 and moderately severe L2-3, L4-5. The L4 nerve roots show some compression in the foramina while the right L3 root has disc protrusion abutting it at the L3-4 level. Other degenerative disc changes seen are mild, but without compression deformity of the nerve roots or significant stenosis. No acute compression fracture. Findings are unchanged from the 07/29/2016 study. Signed by Cr Shaw MD 06/03/2017 05:21 P
[2017-06-03 17:38] LABS: BASO % 0.5 % (0.0-1.0); EOS # 0.4 K/mm3 (0.0-0.50); EOS % 8.1 % (0.0-3.0); LARGE UNSTAINED CELL # 0.3 K/mm3 (0.0-0.4); LARGE UNSTAINED CELL % 6.2 % (0.0-4.0); LYMPH # 0.8 K/mm3 (1.5-4.5); LYMPH % 16.4 % (24.0-44.0); MEAN CORPUSCULAR HEMOGLOBIN 28.8 pg (27.0-33.0); MEAN CORPUSCULAR HGB CONC 32.6 g/dl (32.0-36.5); MEAN CORPUSCULAR VOLUME 88.4 fl (80.0-96.0); MONO # 0.4 K/mm3 (0.0-0.8); NEUTROPHILS # 2.8 K/mm3 (1.8-7.7); NEUTROPHILS % 60.7 % (36.0-66.0); PLATELET COUNT, AUTOMATED 188 k/mm3 (150-450); RED CELL DISTRIBUTION WIDTH 15.7 % (11.5-14.5); WHITE BLOOD COUNT 4.7 K/mm3 (4.0-10.0)
[2017-06-03 18:08] LABS: ALBUMIN 3.3 GM/DL (3.2-5.2); ALKALINE PHOSPHATASE 719 U/L (45-117); ALT/SGPT 109 U/L (12-78); ANION GAP 9 MEQ/L (8-16); AST/SGOT 126 U/L (15-37); BILIRUBIN,DIRECT 0.4 MG/DL (0.0-0.2); BILIRUBIN,TOTAL 0.6 MG/DL (0.2-1.0); BLOOD UREA NITROGEN 44 MG/DL (7-18); CALCIUM LEVEL 8.8 MG/DL (8.8-10.2); CARBON DIOXIDE LEVEL 24 MEQ/L (21-32); CHLORIDE LEVEL 108 MEQ/L (98-107); CREATININE FOR GFR 3.07 MG/DL (0.70-1.30); GLUCOSE, FASTING 89 MG/DL (83-110); POTASSIUM SERUM 4.1 MEQ/L (3.5-5.1); SODIUM LEVEL 141 MEQ/L (136-145)
[2017-06-03 18:17] LABS: ALBUMIN/GLOBULIN RATIO 0.75 (1.00-1.93); TOTAL PROTEIN 7.7 GM/DL (6.4-8.2)
[2017-06-03 19:06] VITALS: BP 170/80
--- NOTE | 2017-06-04 09:15 | ED PDOC ---
Post-Departure Follow-Up RADIOLOGY REPORT FAXED TO Michaela Rosado MD Jun 04, 2017 09:15
--- NOTE | 2017-06-05 07:15 | ECGEPIP ---
Stationary ECG Study [facility] - ED Test Date: 2017-06-03 Pat Name: BILL ROSE Department: Room: - Gender: M Paper Inspector: wes : [id number] Requested By: GRETA ATWOOD Order Number: [id number] Reading MD: Michaela Hernandez Measurements Intervals [place] Rate: 54 P: 116 [place]: 190 QRS: 2 QRSD: 106 T: 48 QT: 467 QTc: 446 Interpretive Statements ELECTRONIC ATRIAL PACEMAKER POSSIBLE INFERIOR MYOCARDIAL INFARCTION, OF INDETERMINATE AGE DECREASED RATE 03/13/17 Electronically Signed On 06-05-2017 7:15:42 EDT by Mcihaela Hernandez
== END 2017-06-03 19:08 | disposition home or self-care (01) ==
LOC: M ED 14:30
DX: N18.9 Chronic kidney disease, unspecified (principal); K75.9 Inflammatory liver disease, unspecified; I12.9 Hypertensive chronic kidney disease with stage 1 through stage 4 chronic kidney disease, or unspecified chronic kidney disease; Z95.0 Presence of cardiac pacemaker; Z87.891 Personal history of nicotine dependence
CPT/HCPCS: 70450; 71020; 72131; 80048; 80076; 82140; 82550; 82553; 84443; 84484; 85025; 85610; 93005; 93041; 94760; 99284; G0480

== ENCOUNTER → 2017-06-05 | Outpatient (CLI) | payer MEDICARE ==
[~2017-06-05] MED LIST changes: +MENSCAP2 PO; +SERT50TA PO; +VITA250L PO
--- NOTE | 2017-06-05 20:33 | ECHO ---
DATE OF PROCEDURE: 06/05/2017 REFERRING PHYSICIAN: Linda Melendez MD INDICATION: Chest pain. HEIGHT: 178 cm WEIGHT: 78 kg DIMENSIONS: IVS: 1.0 LV: 4.0 LVPW: 1.0 LA: 3.8 Aorta: 3.0 The study is of acceptable technical quality. Left ventricle is normal size and systolic function with estimated ejection fraction (EF) around 60-65%. I do not appreciate any segmental wall motion abnormalities. Right ventricle is also normal size and systolic function. Both atria appear grossly normal. There is a pacemaker wire artifact apparent in right-sided heart chambers. Aortic valve is mildly sclerotic, but ut has three cusps and normal mobility. There are also mild degenerative abnormalities of mitral valve. Tricuspid and pulmonic valves appear normal. No pericardial effusion is noted. Inferior vena cava is normal size. Aortic root is normal. Aortic arch and abdominal aorta were not seen. Doppler interrogation of aortic valve reveals no stenosis and mild insufficiency. There is mild mitral insufficiency and mild tricuspid insufficiency. Calculated pulmonary artery pressure is within normal limits. Pulmonic valve is functionally competent. Mitral inflow pattern and tissue Doppler imaging of mitral annulus reveal grade 1 diastolic dysfunction. CONCLUSIONS: 1. Study is of acceptable technical quality. 2. Normal left ventricle (LV) size and systolic function, grade 1 diastolic dysfunction. 3. No significant valvular disease. 4. Normal central venous pressure and likely normal pulmonary artery pressure. 5. Echo artifact consistent with pacemaker electrode apparent in right-sided heart chambers. COMMENT: Subacute bacterial endocarditis (SBE) prophylaxis is not recommended.
== END ==
LOC: M CARPUL 10:28
PROVIDERS: ATTEND Internal Medicine Medical Oncology
DX: R07.89 Other chest pain (principal); R94.5 Abnormal results of liver function studies
CPT/HCPCS: 93306; G0463

== ENCOUNTER → 2017-06-12 | Outpatient (CLI) | payer MEDICARE ==
[2017-06-12 16:06] LABS: ALBUMIN 3.3 GM/DL (3.2-5.2); ALBUMIN/GLOBULIN RATIO 0.83 (1.00-1.93); BILIRUBIN,TOTAL 0.5 MG/DL (0.2-1.0); CALCIUM LEVEL 8.8 MG/DL (8.8-10.2); CREATININE FOR GFR 2.46 MG/DL (0.70-1.30); GLOMERULAR FILTRATION RATE 27.2 (>42); POTASSIUM SERUM 4.6 MEQ/L (3.5-5.1); TOTAL PROTEIN 7.3 GM/DL (6.4-8.2)
== END ==
LOC: M SMT 08:21
PROVIDERS: ATTEND Family Medicine
DX: R74.8 Abnormal levels of other serum enzymes (principal)

== ENCOUNTER → 2017-06-19 | Outpatient (CLI) | payer MEDICARE ==
--- NOTE | 2017-06-19 10:31 | REP ---
Complete abdomen ultrasound: There is biliary gravel in the gallbladder. There is no gallbladder wall thickening or pericholecystic fluid. There is no intrahepatic or extrahepatic biliary duct dilatation. The common duct measures 5.7 mm in diameter. This is normal for patient age. There is a 12 mm cyst in the hepatic left lobe. The hepatic parenchyma is otherwise unremarkable. The visualized portion of the pancreatic head is unremarkable. The pancreatic body and tail are obscured by bowel gas. The spleen measures 1104 x 4.8 x 11 centimeters and is normal size and homogeneous. The right kidney is atrophic measuring 5.6 x 3.3 x 3.4 cm half. There is an 11 mm right renal cyst. There is no right hydronephrosis or mass. The left kidney is normal size measuring 10.7 x 5.2 x 6.3 cm. Half there is a 22 mm left renal cyst. There is no hydronephrosis, calculus or mass. There is no abdominal aortic aneurysm. There is no free fluid in the abdomen. Impression: Cyst the left lobe of the liver. Right renal cyst. Left renal cyst. Atrophic right kidney. Biliary gravel in the gallbladder. Signed by Paul Kolb MD 06/19/2017 10:24 A
== END ==
LOC: M RAD 08:46
PROVIDERS: ATTEND Internal Medicine Gastroenterology
DX: R94.5 Abnormal results of liver function studies (principal)

== ENCOUNTER → 2017-08-20 | Outpatient (CLI) | payer MEDICARE ==
--- NOTE | 2017-08-20 16:16 | REP ---
Clinical: Acute bronchitis. Technique: PA and lateral. Comparison: 07/23/2017. Findings: Mediastinum and cardiac silhouette are within normal limits and stable. Lung celeste demonstrate chronic interstitial changes without acute consolidation, effusion, or pneumothorax. The pacemaker is identified with a fractured wire again noted and unchanged. Skeletal structures are intact. Impression: Chronic stable changes. No acute cardiopulmonary process. Signed by Lico Willingham MD 08/20/2017 04:08 P
== END ==
LOC: M ADAMS 13:47
PROVIDERS: ATTEND Family Medicine
DX: J20.9 Acute bronchitis, unspecified (principal)

== ENCOUNTER → 2017-09-10 | Outpatient (CLI) | payer MEDICARE ==
[2017-09-10 14:41] LABS: ALBUMIN 3.7 GM/DL (3.2-5.2); ALBUMIN/GLOBULIN RATIO 1.12 (1.00-1.93); BILIRUBIN,DIRECT 0.1 MG/DL (0.0-0.2); BILIRUBIN,TOTAL 0.5 MG/DL (0.2-1.0); CREATININE FOR GFR 2.58 MG/DL (0.70-1.30); GLOMERULAR FILTRATION RATE 25.7 (>42)
[2017-09-12 12:41] LABS: CARCINOEMBRYONIC ANTIGEN 1.7 NG/ML (<2.5)
== END ==
LOC: M SMT 08:52
PROVIDERS: ATTEND Internal Medicine Gastroenterology
DX: R94.5 Abnormal results of liver function studies (principal); Z79.899 Other long term (current) drug therapy

== ENCOUNTER → 2017-10-14 | Outpatient (CLI) | payer MEDICARE | LOC: M WUC 18:14 | DX: S60.221A Contusion of right hand, initial encounter (principal); S60.211A Contusion of right wrist, initial encounter; X58.XXXA Exposure to other specified factors, initial encounter; Y92.9 Unspecified place or not applicable; Z18.89 Other specified retained foreign body fragments | CPT/HCPCS: 73110 ==

== ENCOUNTER → 2017-11-03 | Outpatient (REF) | payer MEDICARE | LOC: M LAB REF 10:56 | DX: C67.9 Malignant neoplasm of bladder, unspecified (principal) | CPT/HCPCS: 88108 ==

== ENCOUNTER → 2018-01-08 | Outpatient (REF) | payer MEDICARE, OTHER ==
[2018-01-08 14:35] LABS: FREE T4 0.99 NG/DL (0.76-1.46)
== END ==
LOC: M LAB REF 13:36
DX: E03.9 Hypothyroidism, unspecified (principal)

== ENCOUNTER → 2018-01-08 | Outpatient (CLI) | payer MEDICARE, OTHER | LOC: M SMT 09:46 | DX: R91.8 Other nonspecific abnormal finding of lung field (principal); R05 Cough; R04.2 Hemoptysis; E03.9 Hypothyroidism, unspecified | CPT/HCPCS: 84443 ==

== ENCOUNTER → 2018-01-22 | Outpatient (REF) | payer MEDICARE, OTHER | LOC: M SFHCPLAZ 12:43 | DX: L08.9 Local infection of the skin and subcutaneous tissue, unspecified (principal); D36.7 Benign neoplasm of other specified sites (principal) | CPT/HCPCS: 88305 ==

== ENCOUNTER → 2018-01-22 | Outpatient (REF) | payer MEDICARE | LOC: M SFHCADAM 18:44 | DX: R05 Cough (principal) | CPT/HCPCS: 87205 ==

== ENCOUNTER → 2018-02-06 | Outpatient (CLI) | payer MEDICARE | LOC: M RAD 06:53 | DX: R91.1 Solitary pulmonary nodule (principal); K80.70 Calculus of gallbladder and bile duct without cholecystitis without obstruction; N26.1 Atrophy of kidney (terminal); R05 Cough; C67.9 Malignant neoplasm of bladder, unspecified; Z95.0 Presence of cardiac pacemaker | CPT/HCPCS: 71250 ==

== ENCOUNTER → 2018-02-06 | Outpatient (CLI) | payer MEDICARE ==
[2018-02-06 08:02] LABS: HEMATOCRIT 38.2 % (42.0-52.0); HEMOGLOBIN 12.2 g/dl (13.5-17.5); MEAN CORPUSCULAR HEMOGLOBIN 29.8 pg (27.0-33.0); MEAN CORPUSCULAR HGB CONC 31.9 g/dl (32.0-36.5); MEAN CORPUSCULAR VOLUME 93.2 fl (80.0-96.0); PLATELET COUNT, AUTOMATED 152 10^3/uL (150-450); RED CELL DISTRIBUTION WIDTH 15.8 % (11.5-14.5); WHITE BLOOD COUNT 6.8 10^3/uL (4.0-10.0)
[2018-02-06 08:27] LABS: ANION GAP 8 MEQ/L (8-16); BLOOD UREA NITROGEN 46 MG/DL (7-18); CALCIUM LEVEL 8.7 MG/DL (8.8-10.2); CARBON DIOXIDE LEVEL 25 MEQ/L (21-32); CHLORIDE LEVEL 116 MEQ/L (98-107); CREATININE FOR GFR 2.61 MG/DL (0.70-1.30); GLOMERULAR FILTRATION RATE 25.4 (>42); GLUCOSE, FASTING 79 MG/DL (70-100); SODIUM LEVEL 149 MEQ/L (136-145)
== END ==
LOC: M LAB 07:34
DX: C67.9 Malignant neoplasm of bladder, unspecified (principal)

== ENCOUNTER → 2018-02-10 | Outpatient (CLI) | payer MEDICARE | LOC: M CARPUL 09:55 | DX: R05 Cough (principal); R60.0 Localized edema | CPT/HCPCS: 93306 ==

== ENCOUNTER → 2018-02-24 | Outpatient (CLI) | payer MEDICARE | LOC: M PLARAD 08:18 | DX: Z85.51 Personal history of malignant neoplasm of bladder (principal); R74.8 Abnormal levels of other serum enzymes; R91.1 Solitary pulmonary nodule | CPT/HCPCS: 78815 ==

== ENCOUNTER → 2018-03-23 | Outpatient (CLI) | payer MEDICARE ==
[2018-03-23 13:27] LABS: BASO % 0.7 % (0.0-1.0); EOS # 0.3 10^3/uL (0.0-0.50); EOS % 5.7 % (0.0-3.0); HEMATOCRIT 37.8 % (42.0-52.0); HEMOGLOBIN 12.3 g/dl (13.5-17.5); IMMATURE GRANULOCYTE % 0.2 % (0-3.0); LYMPH # 1.5 10^3/uL (1.5-4.5); LYMPH % 26.2 % (24.0-44.0); MEAN CORPUSCULAR HEMOGLOBIN 30.3 pg (27.0-33.0); MEAN CORPUSCULAR HGB CONC 32.5 g/dl (32.0-36.5); MEAN CORPUSCULAR VOLUME 93.1 fl (80.0-96.0); MONO # 0.5 10^3/uL (0.0-0.8); MONO % 8.2 % (0.0-5.0); NEUTROPHILS # 3.4 10^3/uL (1.8-7.7); PLATELET COUNT, AUTOMATED 178 10^3/uL (150-450); RED BLOOD COUNT 4.06 10^6/uL (4.30-6.10); RED CELL DISTRIBUTION WIDTH 15.5 % (11.5-14.5); WHITE BLOOD COUNT 5.8 10^3/uL (4.0-10.0)
[2018-03-23 13:48] LABS: ALBUMIN 3.5 GM/DL (3.2-5.2); ALKALINE PHOSPHATASE 112 U/L (45-117); ALT/SGPT 28 U/L (12-78); AST/SGOT 33 U/L (7-37); BILIRUBIN,DIRECT 0.1 MG/DL (0.0-0.2); BILIRUBIN,TOTAL 0.5 MG/DL (0.2-1.0); GAMMA GLUTAMYLTRANSPEPTIDASE 52 U/L (15-85)
[2018-03-25 00:09] LABS: ANTI-MITOCHONDRIAL ANTIBODY 15.9 Units (0.0-20.0)
== END ==
LOC: M SMT 08:01
DX: R94.5 Abnormal results of liver function studies (principal); R63.4 Abnormal weight loss; S81.801D Unspecified open wound, right lower leg, subsequent encounter
CPT/HCPCS: 82977

== ENCOUNTER → 2018-04-14 | Outpatient (REF) | payer MEDICARE | LOC: M LAB REF 13:08 | DX: N39.0 Urinary tract infection, site not specified (principal) | CPT/HCPCS: 87186 ==

== ENCOUNTER → 2018-06-05 | Outpatient (CLI) | payer MEDICARE | LOC: M SMT 12:55 | DX: J43.1 Panlobular emphysema (principal) | CPT/HCPCS: 71046 ==

== ENCOUNTER → 2018-06-17 | Outpatient (REF) | payer MEDICARE ==
[2018-06-17 13:07] LABS: ALBUMIN 3.8 GM/DL (3.2-5.2); ALBUMIN/GLOBULIN RATIO 1.06 (1.00-1.93); ALKALINE PHOSPHATASE 131 U/L (45-117); ALT/SGPT 39 U/L (12-78); ANION GAP 12 MEQ/L (8-16); AST/SGOT 33 U/L (7-37); BILIRUBIN,TOTAL 0.6 MG/DL (0.2-1.0); BLOOD UREA NITROGEN 45 MG/DL (7-18); CALCIUM LEVEL 8.7 MG/DL (8.8-10.2); CARBON DIOXIDE LEVEL 23 MEQ/L (21-32); CHLORIDE LEVEL 108 MEQ/L (98-107); CHOLESTEROL LEVEL 280 MG/DL (<200); CHOLESTEROL RISK RATIO 5.957 (<5); CREATININE FOR GFR 2.77 MG/DL (0.70-1.30); FREE T4 0.84 NG/DL (0.76-1.46); GLOMERULAR FILTRATION RATE 23.6 (>35); GLUCOSE, FASTING 86 MG/DL (70-100); HDL CHOLESTEROL 47 MG/DL (>40); LDL CHOLESTEROL 186 MG/DL (<100); NON-HDL-C 233 MG/DL; POTASSIUM SERUM 4.7 MEQ/L (3.5-5.1); SODIUM LEVEL 143 MEQ/L (136-145); TOTAL PROTEIN 7.4 GM/DL (6.4-8.2); TRIGLYCERIDES LEVEL 236 MG/DL (<150)
== END ==
LOC: M SFHCADAM 08:46
DX: E78.2 Mixed hyperlipidemia (principal); F43.21 Adjustment disorder with depressed mood; N18.4 Chronic kidney disease, stage 4 (severe)
CPT/HCPCS: 84443

== ENCOUNTER → 2018-07-03 | Outpatient (CLI) | payer MEDICARE | LOC: M RAD 06:44 | DX: R91.1 Solitary pulmonary nodule (principal); K80.20 Calculus of gallbladder without cholecystitis without obstruction; N26.1 Atrophy of kidney (terminal) | CPT/HCPCS: 71250 ==

== ENCOUNTER → 2018-07-27 | Outpatient (CLI) | payer MEDICARE ==
[2018-07-27 17:57] LABS: ANION GAP 8 MEQ/L (8-16); BLOOD UREA NITROGEN 48 MG/DL (7-18); CARBON DIOXIDE LEVEL 25 MEQ/L (21-32); CHLORIDE LEVEL 107 MEQ/L (98-107); CREATININE FOR GFR 2.84 MG/DL (0.70-1.30); GLOMERULAR FILTRATION RATE 22.9 (>35); GLUCOSE, FASTING 128 MG/DL (70-100); POTASSIUM SERUM 4.7 MEQ/L (3.5-5.1); SODIUM LEVEL 140 MEQ/L (136-145)
[2018-07-27 18:36] LABS: HEMATOCRIT 38.5 % (42.0-52.0); HEMOGLOBIN 12.2 g/dl (13.5-17.5); MEAN CORPUSCULAR HEMOGLOBIN 29.8 pg (27.0-33.0); MEAN CORPUSCULAR HGB CONC 31.7 g/dl (32.0-36.5); MEAN CORPUSCULAR VOLUME 93.9 fl (80.0-96.0); PLATELET COUNT, AUTOMATED 187 10^3/uL (150-450); RED CELL DISTRIBUTION WIDTH 15.1 % (11.5-14.5); WHITE BLOOD COUNT 6.3 10^3/uL (4.0-10.0)
== END ==
LOC: M SMT 12:53
DX: C67.9 Malignant neoplasm of bladder, unspecified (principal)

== ENCOUNTER → 2018-07-27 | Outpatient (CLI) | payer MEDICARE ==
[2018-07-27 18:01] LABS: BLOOD UREA NITROGEN 49 MG/DL (7-18)
[2018-07-27 18:01] LABS: CREATININE FOR GFR 2.79 MG/DL (0.70-1.30); FERRITIN 169 NG/ML (26-388); GLOMERULAR FILTRATION RATE 23.4 (>35); IRON (FE) 50 UG/DL (65-175); PERCENT SATURATION 17.7 % (19.7-50.0); TOTAL IRON BINDING CAPACITY 282 UG/DL (250-450)
[2018-07-27 18:19] LABS: BASO % 0.5 % (0.0-1.0); EOS # 0.4 10^3/uL (0.0-0.50); EOS % 5.9 % (0.0-3.0); HEMATOCRIT 38.1 % (42.0-52.0); HEMOGLOBIN 12.2 g/dl (13.5-17.5); IMMATURE GRANULOCYTE % 0.3 % (0-3.0); LYMPH # 1.7 10^3/uL (1.5-4.5); LYMPH % 26.7 % (24.0-44.0); MEAN CORPUSCULAR HEMOGLOBIN 29.8 pg (27.0-33.0); MEAN CORPUSCULAR VOLUME 92.9 fl (80.0-96.0); MONO # 0.7 10^3/uL (0.0-0.8); MONO % 10.4 % (0.0-5.0); NEUTROPHILS # 3.6 10^3/uL (1.8-7.7); NEUTROPHILS % 56.2 % (36.0-66.0); PLATELET COUNT, AUTOMATED 187 10^3/uL (150-450); RED CELL DISTRIBUTION WIDTH 15.1 % (11.5-14.5); WHITE BLOOD COUNT 6.4 10^3/uL (4.0-10.0)
[2018-07-27 19:05] LABS: FOLATE > 24.0 NG/ML (>5.4)
== END ==
LOC: M SMT 13:01
DX: R94.5 Abnormal results of liver function studies (principal); C67.9 Malignant neoplasm of bladder, unspecified
CPT/HCPCS: 82746

== ENCOUNTER 2018-08-15 10:10 | Emergency (ER) | payer MEDICARE ==
[2018-08-15 11:42] LABS: BASO % 0.4 % (0.0-1.0); EOS # 0.1 10^3/uL (0.0-0.50); EOS % 1.5 % (0.0-3.0); HEMOGLOBIN 11.3 g/dl (13.5-17.5); IMMATURE GRANULOCYTE % 0.4 % (0-3.0); LYMPH # 1.9 10^3/uL (1.5-4.5); LYMPH % 21.9 % (24.0-44.0); MEAN CORPUSCULAR HEMOGLOBIN 29.8 pg (27.0-33.0); MEAN CORPUSCULAR HGB CONC 32.3 g/dl (32.0-36.5); MEAN CORPUSCULAR VOLUME 92.3 fl (80.0-96.0); MONO # 0.7 10^3/uL (0.0-0.8); MONO % 8.5 % (0.0-5.0); NEUTROPHILS # 5.7 10^3/uL (1.8-7.7); NEUTROPHILS % 67.3 % (36.0-66.0); PLATELET COUNT, AUTOMATED 252 10^3/uL (150-450); RED BLOOD COUNT 3.79 10^6/uL (4.30-6.10); RED CELL DISTRIBUTION WIDTH 14.8 % (11.5-14.5); WHITE BLOOD COUNT 8.5 10^3/uL (4.0-10.0)
[2018-08-15 11:43] LABS: BEDSIDE GLUCOSE 99 MG/DL (83-110)
[2018-08-15 12:01] LABS: INR 0.96; PROTHROMBIN TIME 12.9 SECONDS (12.1-14.4)
[2018-08-15 12:02] LABS: PARTIAL THROMBOPLASTIN TIME 28.9 SECONDS (25.4-37.6)
[2018-08-15 12:13] LABS: ANION GAP 9 MEQ/L (8-16); BLOOD UREA NITROGEN 42 MG/DL (7-18); CALCIUM LEVEL 8.5 MG/DL (8.8-10.2); CARBON DIOXIDE LEVEL 21 MEQ/L (21-32); CHLORIDE LEVEL 112 MEQ/L (98-107); CPK CREATINE PHOSPHOKINASE 136 U/L (39-308); CREATININE FOR GFR 2.88 MG/DL (0.70-1.30); GLOMERULAR FILTRATION RATE 22.6 (>35); GLUCOSE, FASTING 91 MG/DL (70-100); MAGNESIUM LEVEL 2.1 MG/DL (1.8-2.4); MB/CK RELATIVE INDEX 1.47 (< OR =4); POTASSIUM SERUM 4.7 MEQ/L (3.5-5.1); SODIUM LEVEL 142 MEQ/L (136-145); TROPONIN I < 0.02 NG/ML (< 0.10)
== END 2018-08-15 15:32 | disposition left against medical advice (07) ==
LOC: M ED 10:10
DX: R55 Syncope and collapse (principal); N18.4 Chronic kidney disease, stage 4 (severe); I12.9 Hypertensive chronic kidney disease with stage 1 through stage 4 chronic kidney disease, or unspecified chronic kidney disease; J44.9 Chronic obstructive pulmonary disease, unspecified; F03.90 Unspecified dementia, unspecified severity, without behavioral disturbance, psychotic disturbance, mood disturbance, and anxiety; I25.10 Atherosclerotic heart disease of native coronary artery without angina pectoris; E78.5 Hyperlipidemia, unspecified; M48.00 Spinal stenosis, site unspecified; Z95.0 Presence of cardiac pacemaker; Z95.5 Presence of coronary angioplasty implant and graft; Z79.899 Other long term (current) drug therapy; Z79.82 Long term (current) use of aspirin; Z79.890 Hormone replacement therapy; Z88.2 Allergy status to sulfonamides; Z88.5 Allergy status to narcotic agent; Z88.8 Allergy status to other drugs, medicaments and biological substances; Z91.040 Latex allergy status; Z91.048 Other nonmedicinal substance allergy status; Z87.891 Personal history of nicotine dependence
CPT/HCPCS: 71045

== ENCOUNTER → 2018-08-17 | Outpatient (REF) | payer MEDICARE | LOC: M SFHCPLAZ 13:42 | DX: R19.7 Diarrhea, unspecified (principal) | CPT/HCPCS: 87507 ==

== ENCOUNTER → 2018-09-25 | Outpatient (CLI) | payer MEDICARE ==
[~2018-09-25] MED LIST changes: +ACET500T15 PO; -AMLO10TA2 PO; +AMLO10TA5 PO; +ASCO25TA PO; +C-50TAB2 PO; +CALC1CAP31 PO; +CITA20TA4 PO; -FIRS1SOL3 PO; +FIRS50SO PO; +FURO20TA2 PO; +KLOR10TA76 PO; -LASI20TA PO; +LASI20TA3 PO; -LEVA1TAB PO; +LEVA250T13 PO; +MINO2.5T PO; +NEUR100C PO; +OCUVTAB4 PO; -POTA10CA PO; -ZYVO100T PO; +ZYVO1TAB PO
--- NOTE | 2018-09-25 13:43 | REP ---
CT chest without contrast: History: Nonspecific abnormal lung field finding. The patient gives a history of bladder carcinoma. Comparison CT study of the chest is July 03, 2018. CT findings: The left lower lobe nodule in the lateral pleural angle is again seen, 6 mm in greatest diameter today subjectively essentially unchanged allowing for slice positioning differences. There is no evidence of progression. The focal opacity along the major fissure in the right mid lung zone seen previously is less well seen today. There is no evidence of soft tissue nodule here. There are however, fairly advanced emphysematous changes which appear to be more prominent. There are increased interstitial markings in the posterior segment right upper lobe adjacent to the major fissure. No new pulmonary nodule is seen. A pacemaker is again noted in the right heart via the right side. No mediastinal or hilar adenopathy is seen. Vascular calcification is observed. No adrenal lesion is seen. There are gallstones. Small left lobe hepatic cysts are seen. Impression: Stable nodule in the left lower lobe 6 mm in diameter. The previously noted right upper lobe aj fissural nodule is less prominent and possibly partially obscured by interstitial fibrosis. Advanced emphysema COPD changes. Electronically Signed by Anthony Richter MD 09/25/2018 07:17 P
== END ==
LOC: M RAD 10:27
PROVIDERS: ATTEND Internal Medicine Pulmonary Disease
DX: R91.8 Other nonspecific abnormal finding of lung field (principal)

== ENCOUNTER → 2018-10-07 | Outpatient (REF) | payer MEDICARE | LOC: CANPREREF → M SFHCADAM 15:08 | PROVIDERS: ATTEND Family Medicine | DX: R07.89 Other chest pain (principal); Z53.8 Procedure and treatment not carried out for other reasons ==

== ENCOUNTER → 2018-11-04 | Outpatient (REF) | payer MEDICARE | LOC: M LAB REF 17:00 | PROVIDERS: ATTEND Internal Medicine Nephrology | DX: N39.0 Urinary tract infection, site not specified (principal) ==

== ENCOUNTER → 2018-11-19 | Outpatient (CLI) | payer MEDICARE ==
--- NOTE | 2018-11-19 10:23 | REP ---
Clinical: Possible stress fracture. Technique: AP and lateral views of the left tibia / fibula. Findings: The osseous structures, joint spaces, and surrounding soft tissues appear normal. No periosteal reaction, cortical thickening or obvious osseous abnormalities appreciated with regards to possible stress fracture. Impression: Normal examination. While no radiographic abnormalities are identified, early stress fracture cannot definitively be excluded. Electronically Signed by Lico Willingham MD 11/19/2018 10:15 A
== END ==
LOC: M SMT 09:40
PROVIDERS: ATTEND Internal Medicine Nephrology
DX: M84.364A Stress fracture, left fibula, initial encounter for fracture (principal); X58.XXXA Exposure to other specified factors, initial encounter; Y92.9 Unspecified place or not applicable

== ENCOUNTER 2018-12-01 08:53 | Emergency (ER) | payer MEDICARE ==
[~2018-12-01] VITALS: Ht 177.8 cm; Wt 77.3 kg
[2018-12-01] MEDS ORDERED: ISOS30TA4 PO (09:08)
[2018-12-01] MEDS ORDERED: BUPR150T3 PO (09:08)
[2018-12-01] MEDS ORDERED: DICL1GEL3 (09:10)
[2018-12-01 11:08] LABS: BASO % 0.3 % (0.0-1.0); EOS # 0.3 10^3/uL (0.0-0.50); EOS % 4.2 % (0.0-3.0); HEMATOCRIT 39.1 % (42.0-52.0); HEMOGLOBIN 12.4 g/dl (13.5-17.5); LYMPH # 1.5 10^3/uL (1.5-4.5); LYMPH % 23.1 % (24.0-44.0); MEAN CORPUSCULAR HEMOGLOBIN 29.2 pg (27.0-33.0); MEAN CORPUSCULAR HGB CONC 31.7 g/dl (32.0-36.5); MONO # 0.7 10^3/uL (0.0-0.8); MONO % 10.9 % (0.0-5.0); NEUTROPHILS # 4.1 10^3/uL (1.8-7.7); NEUTROPHILS % 61.1 % (36.0-66.0); PLATELET COUNT, AUTOMATED 186 10^3/uL (150-450); RED BLOOD COUNT 4.25 10^6/uL (4.30-6.10); WHITE BLOOD COUNT 6.7 10^3/uL (4.0-10.0)
[2018-12-01 11:14] LABS: BLOOD UREA NITROGEN 51 MG/DL (7-18); C REACTIVE PROTEIN QUANTITATIV < 0.30 MG/DL (0.00-0.30); CALCIUM LEVEL 8.1 MG/DL (8.8-10.2); CARBON DIOXIDE LEVEL 21 MEQ/L (21-32); CHLORIDE LEVEL 113 MEQ/L (98-107); CPK CREATINE PHOSPHOKINASE 83 U/L (39-308); CREATININE FOR GFR 2.68 MG/DL (0.70-1.30); GLOMERULAR FILTRATION RATE 24.5 (>35); GLUCOSE, FASTING 119 MG/DL (70-100); POTASSIUM SERUM 5.1 MEQ/L (3.5-5.1); RHEUMATOID FACTOR QUANT < 10.0 IU/ML (<15.0); SODIUM LEVEL 142 MEQ/L (136-145); URIC ACID 6.2 MG/DL (3.5-7.2)
[2018-12-01 11:40] LABS: ERYTHROCYTE SEDIMENTATION RATE 17 mm/hr (0-20)
--- NOTE | 2018-12-01 11:40 | REP ---
Bilateral lower extremity deep vein duplex ultrasound: The deep veins demonstrate normal compression, normal Doppler color flow and normal Doppler waveforms with respiration and augmentation from the popliteal vein to the common femoral vein. Impression: There is no deep vein thrombus in the right or left lower extremity. No change from the prior study of 10/21/2014. . Electronically Signed by Paul Kolb MD 12/01/2018 11:32 A
--- NOTE | 2018-12-01 12:29 | REP ---
Right tibia-fibula four views: Mineralization is normal. There is no fracture or dislocation. No calcifications or foreign bodies. There is no plain film evidence of stress fracture. If symptoms persist or worsen consider radionuclide bone scan. Impression: Negative plain film study of the right tibia-fibula. Electronically Signed by Paul Kolb MD 12/01/2018 12:20 P
[2018-12-01 12:47] VITALS: BP 160/90
== END 2018-12-01 12:55 | disposition home or self-care (01) ==
LOC: M ED 08:53
DX: M79.661 Pain in right lower leg (principal); M79.662 Pain in left lower leg; Z79.899 Other long term (current) drug therapy; Z88.2 Allergy status to sulfonamides; Z88.5 Allergy status to narcotic agent; Z88.8 Allergy status to other drugs, medicaments and biological substances; Z91.041 Radiographic dye allergy status; Z91.048 Other nonmedicinal substance allergy status; Z87.891 Personal history of nicotine dependence

== ENCOUNTER → 2019-02-11 | Outpatient (CLI) | payer MEDICARE ==
[~2019-02-11] MED LIST changes: -ASCO25TA PO; -ASPI1TAB PO; +ASPI81TA26 PO; -BISO10TA PO; +BISO10TA13 PO; +BUPR150T3 PO; -CITA20TA4 PO; +CITA20TA6 PO; +DICL1GEL3; +ISOS30TA4 PO; +SERT-141 PO; -SERT50TA PO; +VITA100018 PO; -VITA100072 PO; +VITA1TAB23 PO
[2019-02-11 13:28] LABS: HEMATOCRIT 38.8 % (42.0-52.0); HEMOGLOBIN 12.3 g/dl (13.5-17.5); MEAN CORPUSCULAR HEMOGLOBIN 29.5 pg (27.0-33.0); MEAN CORPUSCULAR HGB CONC 31.7 g/dl (32.0-36.5); PLATELET COUNT, AUTOMATED 175 10^3/uL (150-450); RED BLOOD COUNT 4.17 10^6/uL (4.30-6.10); WHITE BLOOD COUNT 5.5 10^3/uL (4.0-10.0)
[2019-02-11 13:45] LABS: CALCIUM LEVEL 8.9 MG/DL (8.8-10.2); CREATININE FOR GFR 3.07 MG/DL (0.70-1.30); GLOMERULAR FILTRATION RATE 20.9 (>35); POTASSIUM SERUM 5.3 MEQ/L (3.5-5.1)
== END ==
LOC: M SMT 11:35
PROVIDERS: ATTEND Nurse Practitioner Women's Health
DX: C67.9 Malignant neoplasm of bladder, unspecified (principal)

== ENCOUNTER → 2019-02-18 | Outpatient (REF) | payer MEDICARE ==
[~2019-02-18] MED LIST changes: +MULT-6 PO; +PROBCAP14 PO; +VITA500C24 PO
== END ==
LOC: M SMT 17:10
PROVIDERS: ATTEND Urology
DX: C67.9 Malignant neoplasm of bladder, unspecified (principal)
CPT/HCPCS: 88108; G0463

== ENCOUNTER → 2019-03-01 | Outpatient (CLI) | payer MEDICARE ==
[~2019-03-01] MED LIST changes: +GASTROGRAFIN SOLUTION 30ML (Q9963) As Ordered ONE
--- NOTE | 2019-03-01 13:25 | REP ---
CT ABDOMEN AND PELVIS WITHOUT IV CONTRAST: CT abdomen and pelvis performed without oral or IV contrast. Sagittal and coronal reconstruction images are performed. Comparison is made with a prior study of 03/13/2017. Visualized lung bases demonstrate mild fibroatelectatic change. There are few small cysts in the liver which are stable. Small gallstones are seen in the dependent portion of the gallbladder without evidence of gallbladder wall edema. The spleen, adrenals, and pancreas are grossly unremarkable. There is right renal atrophy as seen on prior study with a small renal cyst as well. A left renal cyst medially measures 2.4 cm in diameter not significantly changed. There is no hydronephrosis bilaterally. There is moderate atherosclerotic calcification of the abdominal aorta without aneurysm. There is ectasia with maximum AP diameter of the distal abdominal aorta 2.6 cm. There is no adenopathy. I see no free air or free fluid. I see no bowel wall thickening. The patient has had a prior cystectomy with bladder reconstruction. The appearance is unchanged. There is no new pelvic mass. There are degenerative changes of the spine. IMPRESSION: Stable CT exam compared to prior study of 03/13/2017. No evidence of new mass or adenopathy. Gallstones in the gallbladder. Bilateral renal cysts. Postsurgical changes with cystectomy and bladder reconstruction. Electronically Signed by Paul Perry MD 03/02/2019 11:36 A
== END ==
LOC: M RAD 10:48
PROVIDERS: ATTEND Internal Medicine Medical Oncology
DX: C67.9 Malignant neoplasm of bladder, unspecified (principal)
CPT/HCPCS: 74176; Q9963

== ENCOUNTER 2019-04-05 09:10 | Inpatient (IN) | payer MEDICARE ==
[~2019-04-05] VITALS: Ht 177.8 cm; Wt 83.8 kg
[2019-04-05] MEDS: CLOPIDOGREL 75 MG TAB PO SCH (09:00)
[2019-04-05] MEDS: buPROPion **XL** TABLET 150MG (WELLBUTRIN XL) PO SCH (09:00)
[2019-04-05] MEDS: ASCORBIC ACID 500 MG TAB PO SCH (09:00)
[2019-04-05] MEDS: OCUVITE 1 TAB PO SCH (09:00)
[~2019-04-05 09:10] MED LIST changes: -DICL1GEL3; +DICL1GEL3 TOP; -GASTROGRAFIN SOLUTION 30ML (Q9963) As Ordered ONE; -OMEP20CA3 PO; +OMEP20CA4 PO
[2019-04-05 11:36] LABS: BASO % 0.5 % (0.0-1.0); EOS # 0.2 10^3/uL (0.0-0.50); EOS % 3.2 % (0.0-3.0); HEMATOCRIT 40.5 % (42.0-52.0); HEMOGLOBIN 13.2 g/dl (13.5-17.5); LYMPH # 1.4 10^3/uL (1.5-4.5); LYMPH % 22.7 % (24.0-44.0); MEAN CORPUSCULAR HEMOGLOBIN 30.3 pg (27.0-33.0); MEAN CORPUSCULAR HGB CONC 32.6 g/dl (32.0-36.5); MEAN CORPUSCULAR VOLUME 93.1 fl (80.0-96.0); MONO # 0.7 10^3/uL (0.0-0.8); MONO % 10.3 % (0.0-5.0); PLATELET COUNT, AUTOMATED 171 10^3/uL (150-450); RED BLOOD COUNT 4.35 10^6/uL (4.30-6.10); WHITE BLOOD COUNT 6.3 10^3/uL (4.0-10.0)
[2019-04-05 11:51] LABS: AMPHETAMINES LEVEL URINE NEGATIVE (NEGATIVE); BARBITURATES URINE NEGATIVE (NEGATIVE); BENZODIAZEPINES URINE NEGATIVE (NEGATIVE); CANNABINOIDS URINE NEGATIVE (NEGATIVE); COCAINE METABOLITE URINE NEGATIVE (NEGATIVE); METHADONE URINE NEGATIVE (NEGATIVE); OPIATES URINE NEGATIVE (NEGATIVE); PHENCYCLIDINE URINE NEGATIVE (NEGATIVE)
[2019-04-05] MEDS ORDERED: ALPRAZolam 0.5 MG TAB PO ONE (12:15)
[2019-04-05] MEDS ORDERED: SERO1TAB3 PO (12:31)
[2019-04-05 12:32] LABS: ALBUMIN 3.7 GM/DL (3.2-5.2); ALT/SGPT 24 U/L (12-78); BILIRUBIN,DIRECT 0.1 MG/DL (0.0-0.2); BILIRUBIN,TOTAL 0.5 MG/DL (0.2-1.0); BLOOD UREA NITROGEN 64 MG/DL (7-18); CALCIUM LEVEL 9.1 MG/DL (8.8-10.2); CARBON DIOXIDE LEVEL 23 MEQ/L (21-32); CHLORIDE LEVEL 110 MEQ/L (98-107); CK-MB VALUE MASS 5.1 NG/ML (<3.6); CPK CREATINE PHOSPHOKINASE 152 U/L (39-308); ETHYL ALCOHOL (ETHANOL) < 0.003 % (0.000-0.010); GLOMERULAR FILTRATION RATE 19.9 (>35); GLUCOSE, FASTING 95 MG/DL (70-100); MB/CK RELATIVE INDEX 3.36 (< OR =4); POTASSIUM SERUM 4.3 MEQ/L (3.5-5.1); SALICYLATE LEVEL < 1.7 MG/DL (5.0-30.0); SODIUM LEVEL 143 MEQ/L (136-145); TOTAL PROTEIN 7.2 GM/DL (6.4-8.2); TROPONIN I 0.03 NG/ML (< 0.10)
[2019-04-05 12:35] LABS: ACETAMINOPHEN LEVEL < 2.0 UG/ML (10.0-30.0)
[2019-04-05] MEDS ORDERED: POTA10CA32 PO (13:51)
[2019-04-05] MEDS ORDERED: QUET1TAB7 PO (13:54)
[2019-04-05] MEDS ORDERED: ZIAC2.5T PO (13:56)
[2019-04-05] MEDS ORDERED: MINO2.5T PO (13:57)
[2019-04-05] MEDS ORDERED: PHARMACY COMMENT (13:59)
[2019-04-05] MEDS ORDERED: ACETAMINOPHEN 500 MG TAB PO PRN (15:00)
[2019-04-05] MEDS ORDERED: ceFAZolin SOD 1 GM in D5W MINI-BAG PLUS 50 ML IV SCH (15:00)
[2019-04-05] MEDS ORDERED: ceFAZolin SOD 1 GM in D5W MINI-BAG PLUS 50 ML IV ONE (15:30)
[2019-04-05] MEDS ORDERED: ceFAZolin SOD 500 MG in D5W MINI-BAG PLUS 50 ML IV SCH (16:00)
[2019-04-05 16:03] LABS: FOLATE > 24.0 NG/ML (>5.4); VITAMIN B12 LEVEL 847 PG/ML (247-911)
--- NOTE | 2019-04-05 16:31 | HPE ---
DATE OF ADMISSION: 04/05/2019 PRIMARY CARE PROVIDER: Dr. James Bianchi PRINCIPAL DIAGNOSES: Altered mental status, probable urinary tract infection (UTI). HISTORY: Avel Raman is an 79-year-old with dementia, who was admitted with aggressive behavior towards his , altered mental status, probably precipitated by a urinary tract infection. He has a history of dementia and has seen Dr. Paredes of the neurology group for this in the past. The patient's memory lapses and behavioral problems worsened after having lumbar spine surgery in July 2018 at [facility]. Per his , Catherine, his dementia went downhill after that. When I last saw him in February he was having sundowning. He would wake up in the middle of the night and thinking it was morning and being combative towards his at times. Things became abruptly worse about a week or two ago. The patient started to have a lot of paranoid thoughts, would storm into the room and shout at his , call her names and act aggressively towards her. He was brought to the emergency room by the police today. Workup has shown a significant pyuria. He is being admitted for treatment of this with neurology consultation and medical stabilization. The patient's past medical history shows dementia. He had some neuro imaging done at [facility] that showed frontotemporal atrophy. He had an electroencephalogram (EEG) that was negative. Last saw Dr. Paredes in November 2017. Other past medical history shows: 1. Hypertensive heart disease. 2. Coronary artery disease, status post PCI of the circumflex and RCA in 1997 and 2002, LAD in 2008. In February [address] segment elevation myocardial infarction and was transferred to [facility] in [place], had a drug eluting stent in the circumflex and two into the right coronary artery. He has a history of bladder cancer and follows with urology, status post radical cystoprostatectomy, bilateral lymph node dissection in September 2014 and follows periodically with Dr. Alvarado for this. 3. History of hyperlipidemia. The patient cannot tolerate statins. He has been on multiple statins with elevated liver function tests. He has been on Zetia, which has been mildly effective at controlling his lipids without abnormal liver functions. 4. He has a history of chronic obstructive pulmonary disease (COPD) with chronic bronchitis with hemoptysis. 5. Recurrent UTIs. The most recent UTI was October 2018, he had Citrobacter UTI. In March 2018 he had Proteus. In July 2016 he had Citrobacter. 6. He had Clostridium (C.) difficile colitis in December 2014. 7. Stage IV chronic kidney disease and follows with Dr. Petersen from nephrology. 8. Dysphagia with esophageal stricture requiring periodic dilatation, which have been done in [place], Dr. Rasheed is his medical facilities section director. 9. History of iron deficiency anemia. 10. Chronic duodenitis/gastritis based on biopsies done by Dr. Ruiz May 2009. 11. Neuropathy of the hands and feet. 12. Lumbar spinal stenosis, severe at L3-4. Underwent L3-[address] Calin Wallis at [facility] July 2018. 13. Abnormal liver function tests in April 2017. He had a CT of the liver that was negative in February 2017. Saw Dr. Null of the GI service August 2017. He noted a low titer antimicrobial antibody and planned to repeat that to look for some trending. 14. He has been seen by Dr. Louise Marcano in oncology, most recently February 2018. 15. He had a CT of the chest that showed right upper lobe ground glass nodule in January 2018. PET scan was negative February 2018. CT June 2018 showed smaller right upper lobe nodule. His anemia workup most recently was June 2018 and showed anemia of chronic disease and normal iron studies, B12, folate. SURGICAL HISTORY: 1. Appendectomy 1963. 2. Pacemaker 1979. 3. Cataract extraction in 1997 and 2004. 4. Right inguinal hernia repair in 1999. 5. Colonoscopy May 2009. 6. Esophagogastroduodenoscopy (EGD) May 2009 and May 2016. 7. Laminectomy of unspecified level in 1999. 8. L3-4 laminectomy in July 2018. 9. Carpal tunnel surgery of right hand in 1999. 10. Cardiac catheterization with stents, as summarized above. 11. Pacemaker was revised in 2011. 12. Transurethral resection of a bladder tumor in April 2014 and subsequent robotic assisted radical cystoprostatectomy with bilateral extensive lymph node dissection, neobladder creation, lysis of adhesions September 2014. 13. Dr. Coker did bronchoscopy September 2015. FAMILY HISTORY: Father of congestive heart failure (CHF), he had ischemic cardiac disease. Mother had a stroke. Brother of renal failure and diabetic complications. SOCIAL HISTORY: He is to his Catherine, who provided much of the medical history above. Does not smoke, quit many years ago. Alcohol intake is negative. ALLERGIES: ADHESIVE TAPE, SULFA, MYELOGRAM DYE, EKG MONITORING PADS, which caused hives, HALDOL caused altered mental status, STATINS caused abnormal liver function tests, CELEXA caused a rash, SERTRALINE caused diarrhea, LEVAQUIN caused right ankle tendonitis, MULTIPLE NARCOTIC PAIN MEDICATIONS have caused altered mental status, including VICODIN and MORPHINE. REVIEW OF SYSTEMS: Hard to obtain. The patient is having a lot of paranoid discussions, it is hard to focus. Denies any rectal bleeding. No frequency, urgency or dysuria. PHYSICAL EXAMINATION: VITAL SIGNS: Per flow sheet. He is lying in a psychiatric room. He has stripped off all of his clothes and is lying naked under a sheet. When I go into the room he states that they have stolen his money and "everything I have." He knows that he is in the hospital, he does not know the month or year. He cannot name the president but he says, "He is that really stupid kelly." HEENT: Pupils are equal and reactive to light. Tympanic membranes and oropharynx benign. Neck with no masses. LUNGS: Decreased breath sounds. HEART: Regular without murmur. CHEST: Bilateral gynecomastia. ABDOMEN: Soft, nontender. No masses. No costovertebral angle tenderness. EXTREMITIES: No clubbing, cyanosis or edema. LABORATORIES: Complete blood count (CBC) and comprehensive metabolic profile unremarkable. Urinalysis showed 140 white cells, 2+ bacteria. IMPRESSION: 1. Toxic encephalopathy, presumably from urinary tract infection (UTI) superimposed on dementia. His dementia has been progressing and it became abruptly worse a week or so ago. I suspect that it is provoked by urinary tract infection (UTI). He does have underlying dementia that has been worse since July 2018. He will be admitted to a medical bed. I consulted neurology. The patient has an appointment to see Dr. Paredes later this week and we will ask that he see him in the hospital. 2. Urinary tract infection. Based upon previous sensitivities, we will use Ancef 1 gram IV every 12 hours while urine culture is pending. 3. Hypertensive heart disease. Continue his current medications. 4. Coronary artery disease. Continue beta nelia therapy and Plavix. 5. Hypothyroidism. TSH is in normal range on low dose levothyroxine 25 mcg daily. 6. Clostridium (C.) difficile colitis. Probiotic has been ordered with his antibiotic. 7. Chronic kidney disease stage IV. Avoid nonsteroidal antiinflammatory drugs (NSAIDs). Adjust medications based upon renal function. Avoid IV contrast material. I spoke with Dr. Jesus. He feels that the patient's diagnosis is already established with frontotemporal dementia. He would not recommend ordering an EEG or other workup nor starting Aricept, Namenda, etc. during the hospitalization, they can attend to all of this as an outpatient. He will see him in consultation.
--- NOTE | 2019-04-05 19:25 | CR ---
DATE OF CONSULTATION: 04/05/2019 REQUESTING PHYSICIAN: Dr. James Bianchi. REASON FOR CONSULTATION: Worsening mental status, history of dementia. HISTORY OF PRESENT ILLNESS: This is an 79-year-old male with a pertinent past medical history of frontal temporal dementia who is presenting here today for worsening altered mental status. The majority of the story was provided by his over the phone with the patient's supplementation. Mr. Raman has a history of frontal temporal dementia and was evaluated by Dr. Paredes in November 2017. The states in the last couple of months, his dementia has gotten worse and in the last 24 hours, it has been at its peak. She states that the day prior, when he was in the emergency room (ER) being evaluated, she noticed that her was getting more agitated and verbally abusive when he is fatigued. When she went home that evening, he was calling her inappropriate names and stating untrue facts, which made her feel that she cannot take care of him, which prompted her to bring him back to the ER for further recommendations. The denies him having any history of visual hallucinations, but he does have moments where he misplaced things and believes other people in his house are stealing stuff from him or they are out to get him. She admits that when he drives on his own and if he is in unfamiliar surroundings, he has a tendency of getting lost and will call her for directions. In the ER, his vitals were stable. Laboratories showed a BUN of 64, creatinine of 3.20, with a urinalysis of positive urine leukocyte esterase at 3+, urine WBC at 143 and urine bacteria of 2+, even though he only had one squamous epithelial cell, this is more consistent of not dirty catches. No new imaging was done. The patient was moved to behavioral health unit (U) side of the ER since being admitted, as he did become un-directable and a little combative with the ER staff. During my exam, he was very pleasant to communicate and was willing to participate when asked direct questions, but did not participate with review of systems appropriately. PAST MEDICAL HISTORY: 1. Hypertension. 2. Hyperlipidemia. 3. Coronary artery disease. 4. History of bladder cancer. 5. Chronic obstructive pulmonary disease (COPD). 6. History of recurrent urinary tract infections (UTIs). 7. Stage IV chronic kidney disease. 8. History of Clostridium (C) difficile colitis. 9. Dysphagia. 10. History of iron deficiency anemia. 11. Chronic duodenitis/gastritis. 12. Severe lumbar spinal stenosis. SURGICAL HISTORY: 1. Appendectomy. 2. Cardiac pacemaker. 3. Bilateral cataract removal. 4. Hernia repair, right inguinal. 5. Laminectomy. 6. Carpal tunnel release of the right. 7. Coronary artery disease stent placement. 8. Transurethral resection of the bladder tumor (TURBT). 9. Robotic-assisted radicular cystoprostatectomy. 10. Bilateral double J stent placement. 11. Esophageal dilatation. 12. L3-L4 laminectomy in July 2018. FAMILY HISTORY: Mother , stroke at 69. Father at 59, history of congestive heart failure and heart disease. Siblings: Brother secondary to heart failure, diabetes. One sister and one son who are both healthy. SOCIAL HISTORY: Patient is a former smoker who quit 10 years ago. Denies any illicit drug use or any alcohol use. Currently lives with his with her two caretakers. ALLERGIES: ADHESIVE TAPE, SULFA - hives, MYELOGRAM DYE - hives, EKG MONITORING ELECTRO-PADS - hives, HALOPERIDOL - unresponsive for 24 hours, PAIN MEDICATION, CELEXA - rash. PHYSICAL EXAMINATION: VITAL SIGNS: Temperature 96.5, pulse 86, respiratory rate 19, blood pressure 135/95 (108), pulse oximetry 98% on room air. GENERAL: This is an 79-year-old male who is resting comfortably in the U. Does not appear to be in acute distress. Does not appropriately answer questions at first, but is easily re-directable. HEENT: Atraumatic, normocephalic. Pupils equal, round and reactive. Extraocular movements are intact. Dentures. LUNGS: Clear to auscultation bilaterally. No wheezing, rhonchi or rales. HEART: Regular rate and rhythm. No audible murmurs, rubs or gallops. BACK: Old surgical incision over the lumbar area, well-healed. No redness or swelling. NEUROLOGIC EXAM: Alert and oriented to person, but not place or time. Cranial nerves Ii-XII are intact without any deficits. Deep tendon reflexes are symmetric and normal. Muscle strength is intact, upper and lower extremities, with the exception of foot extension bilaterally. Foot drop bilaterally noted as well. Step martinez gait. LABORATORIES: Hematology: WBC 6.3, hemoglobin 13.2, hematocrit 40.5, platelets 171. Chemistry: Electrolytes are within normal limits. Chloride slightly elevated at 110, BUN 64, creatinine at 3.20, GFR of 19.9. Liver profile and cardiac markers are within normal limits. Vitamin B12, folate and PSA as well are within normal limits. Urinalysis is positive for protein 1+, leukocyte esterase 3+, WBC 143, RBC 19, bacteria 2+, with squamous epithelial cells of 1. Toxicology was negative. No new imaging was done. Urine cultures are currently pending. ASSESSMENT AND PLAN: This is an 79-year-old male with a pertinent past medical history of dementia who is presenting in for worsening altered mental status. 1. Frontal temporal dementia. Based on patient's clinical presentation and imaging of the head CT in July 2018, this is consistent with frontal temporal dementia. At this time, we agree with continuing with Seroquel 25 mg nightly and if he has severe agitation, you can supplement with Seroquel 25 mg twice a day as needed for severe agitation. Once patient is medically cleared, he can follow up with Dr. Paredes outpatient for further recommendations. 2. Delirium secondary to toxic encephalopathy from possible urinary tract infection (UTI). Urinalysis was positive for leukocyte esterase 3+ and WBC 143 with bacteria 2+. He was started on cefazolin. Will continue with medical management per primary team. Thank you for this consultation. [facility] HEALTHAshwini
[2019-04-05 20:00] VITALS: BP 161/83
[2019-04-05] MEDS: ceFAZolin SOD 500 MG in D5W MINI-BAG PLUS 50 ML IV SCH (20:33)
[2019-04-05] MEDS: POTASSIUM CHLORIDE 10 MEQ SR TABLET PO SCH (20:34)
[2019-04-05] MEDS: FERROUS GLUCONATE 324 MG TAB PO SCH (20:34)
[2019-04-05] MEDS: OMEPRAZOLE 20 MG CAP PO SCH (20:34)
[2019-04-05] MEDS: GABAPENTIN 100 MG CAP PO SCH (20:34)
[2019-04-05] MEDS: SODIUM BICARBONATE 325 MG TAB PO SCH (20:35)
[2019-04-05] MEDS: QUEtiapine FUMARATE 25 MG TAB PO SCH ×2 (20:35→22:25)
--- NOTE | 2019-04-05 20:51 | ECGEPIP ---
[facility] - ED Test Date: 2019-04-05 Pat Name: BILL ROSE Department: Room: - Gender: Male Medical Imaging Technician: TC : 1940 Requested By: Kofi Walters Order Number: [id number] Reading MD: Elton Lorenzo Measurements Intervals [place] Rate: 74 P: 87 CO: 187 QRS: 3 QRSD: 106 T: 23 QT: 387 QTc: 432 Interpretive Statements SINUS RHYTHM WITH SINUS ARRYTHMIA INCOMPLETE RIGHT BUNDLE BRANCH BLOCK VOLTAGE CRITERIA FOR LVH INFERIOR MYOCARDIAL INFARCTION, OF INDETERMINATE AGE Previous tracing on 08-15-18 showed atrial pacemaker Electronically Signed on 04-05-2019 20:50:42 EDT by Elton Lorenzo
[2019-04-05 22:34] VITALS: BP 161/83
[2019-04-06 06:00] VITALS: BP 124/74
[2019-04-06] MEDS: LEVOTHYROXINE 25MCG TABLET (0.025MG) PO SCH (06:41)
--- NOTE | 2019-04-06 08:35 | CR ---
DATE OF CONSULTATION: 04/06/2019 REQUESTING PROVIDER: Dr. James Bianchi REASON FOR CONSULTATION: Acute altered mental status, worsening of probable baseline dementia. Avel Raman is an 79-year-old male who was seen in the [facility] Neurology clinic under the care of Dr. Paredes in February 2018. The patient has been brought to [facility] for worsening confusion, altered mental status ongoing for several years now; however, taking an acute turn with becoming more verbally aggressive and paranoid. The patient was brought into the hospital by police today. He had significant pyuria and was started on antibiotics. Head CT from prior visit reveals significant atrophy, particularly in the frontal and temporal distributions. Given the patient's characteristic symptoms, he likely has frontotemporal dementia. At the present time, he was started on Seroquel 25 mg at bedtime. This is an appropriate dose. He can also receive 25 mg twice a day as needed for further aggression and outbursts. The patient has normal B12 level, normal thyroid function. Rest of the workup can be completed for his dementia and including initiation of treatment for his dementia initiated as an outpatient once his delirium symptoms have significantly improved. Mini-mental status examination at this time would be inappropriate due to the acute delirium. REVIEW OF SYSTEMS: 14-point review of systems obtained and is negative except as per history of present illness. PAST MEDICAL HISTORY: 1. Dementia, probable frontotemporal. 2. Hypertension. 3. Coronary artery disease, status post PCI of the RCA in 1997 and 2002. LAD in 2008. 4. History of non-ST elevation myocardial infarction, status post new stent. 5. History of bilateral lymph node dissection. 6. Status post radical cystoprostatectomy, bilateral lymph node dissection in September 2014, followed by Dr. Alvarado due to history of bladder cancer. 7. Hyperlipidemia, intolerance to statin therapy. 8. Chronic obstructive pulmonary disease (COPD). 9. Recurrent urinary tract infections. 10. Clostridium (C.) difficile. 11. Stage IV chronic kidney disease. 12. Lumbar spinal stenosis status post L3-[address] Calin Wallis in July 2018. Baseline distal lower extremity weakness, bilateral foot drops, unsteady gait. PAST SURGICAL HISTORY: Appendectomy, pacemaker, cataract extraction, right inguinal hernia repair, colonoscopy, lumbar laminectomy, carpal tunnel surgery, cardiac catheterization with stents. Pacemaker was revised in 2011. Transurethral resection of bladder tumor in April 2013, status post radical cystoprostatectomy and bilateral extensive lymph node dissection, neobladder creation, lysis of adhesions in September 2015, bronchoscopy September 2015. FAMILY HISTORY: Noncontributory. SOCIAL HISTORY: The patient lives with his and does not smoke, quit any years ago, is a former smoker. Denies use of any alcohol or illicit drugs. ALLERGIES: ADHESIVE, SULFA, ALOGRAM DYE, EKG MONITORING PADS, HALDOL, STATINS, CELEXA, SERTRALINE, LEVAQUIN, MULTIPLE NARCOTIC PAIN MEDICATIONS, including VICODIN, MORPHINE. PHYSICAL EXAMINATION: Blood pressure is 135/95, pulse rate 86, respiratory rate is 19, temperature is 96.5 degrees Fahrenheit, oxygenation 98% on room air. The patient is awake, alert, oriented to person and location, knows he is in [place] and he knows he is in the hospital but cannot say the name of it. He does not know the year or the month. He does fully participate in examination, though mini mental status examination was met with hostility. The patient stating that he is being asked stupid questions. Pupils are reactive to light. Extraocular movements are intact in all directions without nystagmus. No facial asymmetry to activation. Palate elevates symmetrically. Hearing is subjectively decreased to finger rub. Sensation V1, V2-V3 is intact to light touch. Tongue is midline. Palate elevates symmetrically. Strength is 5/5, including bilateral deltoids, biceps, triceps, handgrip, iliopsoas, quadriceps, tibialis anterior are 3- bilaterally. Sensory is intact to light touch in all four extremities. Coordination: [id number]-[id number] without any gross ataxia, dysmetria. Romberg testing negative. Gait is abnormal with bilateral high steppage gait. ASSESSMENT: Toxic metabolic encephalopathy secondary to urinary tract infection (UTI), chronic kidney disease and superimposed urinary tract infection with pyuria. PLAN: Continue supportive care with antibiotics. Agree with Seroquel 25 mg at bedtime. Can use Seroquel 25 mg by mouth twice a day as needed as well for further agitation. The rest for workup can be completed as an outpatient for long-term care for the patient with frontotemporal dementia. The patient is to followup with Dr. Paredes as an outpatient as scheduled.
[2019-04-06 08:42] LABS: HEMATOCRIT 43.1 % (42.0-52.0); HEMOGLOBIN 13.6 g/dl (13.5-17.5); MEAN CORPUSCULAR HEMOGLOBIN 30.5 pg (27.0-33.0); MEAN CORPUSCULAR HGB CONC 31.6 g/dl (32.0-36.5); MEAN CORPUSCULAR VOLUME 96.6 fl (80.0-96.0); PLATELET COUNT, AUTOMATED 170 10^3/uL (150-450); RED BLOOD COUNT 4.46 10^6/uL (4.30-6.10); WHITE BLOOD COUNT 7.3 10^3/uL (4.0-10.0)
[2019-04-06 08:44] VITALS: BP 125/75
[2019-04-06 09:07] LABS: CALCIUM LEVEL 8.9 MG/DL (8.8-10.2); CREATININE FOR GFR 3.07 MG/DL (0.70-1.30); GLOMERULAR FILTRATION RATE 20.9 (>35); POTASSIUM SERUM 4.4 MEQ/L (3.5-5.1)
[2019-04-06] MEDS: SODIUM BICARBONATE 325 MG TAB PO SCH ×2 (09:22→20:26)
[2019-04-06] MEDS: FERROUS GLUCONATE 324 MG TAB PO SCH ×2 (09:22→20:25)
[2019-04-06] MEDS: BISOPROLOL FUM 2.5 MG PER 1/2TAB PO SCH (09:22)
[2019-04-06] MEDS: POTASSIUM CHLORIDE 10 MEQ SR TABLET PO SCH ×2 (09:23→20:26)
[2019-04-06] MEDS: ASCORBIC ACID 500 MG TAB PO SCH (09:23)
[2019-04-06] MEDS: OCUVITE 1 TAB PO SCH (09:23)
[2019-04-06] MEDS: ISOSORBIDE MON. (IMDUR) 30 MG XR TAB PO SCH (09:23)
[2019-04-06] MEDS: CLOPIDOGREL 75 MG TAB PO SCH (09:23)
[2019-04-06] MEDS: OMEPRAZOLE 20 MG CAP PO SCH ×2 (09:23→20:26)
[2019-04-06] MEDS: buPROPion **XL** TABLET 150MG (WELLBUTRIN XL) PO SCH (09:23)
[2019-04-06] MEDS: ceFAZolin SOD 500 MG in D5W MINI-BAG PLUS 50 ML IV SCH ×2 (09:24→20:25)
--- NOTE | 2019-04-06 11:17 | IPN ---
DATE: 04/02/2019 Avel seems calm this morning. Apparently, last night he was a bit disruptive and was wandering down the halls and trying to get into other patient's rooms. He seems better this morning. Being treated for toxic metabolic encephalopathy due to presumed urinary tract infection superimposed on frontotemporal dementia. Appreciate consultation by neurology yesterday. PHYSICAL EXAMINATION: Afebrile. Vital signs stable. He is alert and conversant. He knows his location. He cannot give me the month or year. He still knows who the president is. He recognizes me immediately. General Appearance: No facial droop or weakness. No jugular venous distention (JVD). Lungs clear. Heart regular rhythm. Abdomen soft, nontender, no masses. Moves arms and legs with equal strength. LABS: Electrolytes are unremarkable. GFR is stable at 20. B12, folate, TSH normal. White count 7.3, hemoglobin 13, platelets 170. IMPRESSION: 1. Toxic metabolic encephalopathy probably related to urinary tract infection. Urine culture is pending. He is on cefazolin pending results of this. 2. Frontotemporal dementia: Appreciate neurology's input. Will increase the Seroquel to [address] Paredes will see him as an outpatient to discuss medicine specifically for his dementia. 3. Hypothyroidism: Stable on current dose of levothyroxine. 4. Hypertensive heart disease: Blood pressure is well controlled. 5. Coronary artery disease: Stable on his beta nelia and Plavix. 6. Chronic kidney disease: GFR is stable. Will stop his sitter.
[2019-04-06] MEDS: QUEtiapine FUMARATE 25 MG TAB PO SCH ×2 (11:34→20:26)
[2019-04-06 14:00] VITALS: BP 108/63
[2019-04-06] MEDS: GABAPENTIN 100 MG CAP PO SCH (20:26)
[2019-04-06 22:00] VITALS: BP 103/63
[2019-04-07] VITALS (11 sets, daily range): BP systolic 88–132; BP diastolic 56–84
[2019-04-07] MEDS ORDERED: HALOPERIDOL 5 MG/ML VIAL (J1630) IM PRN (03:45)
[2019-04-07] MEDS: LEVOTHYROXINE 25MCG TABLET (0.025MG) PO SCH (06:22)
[2019-04-07 06:28] LABS: HEMOGLOBIN 13.3 g/dl (13.5-17.5); MEAN CORPUSCULAR HEMOGLOBIN 30.4 pg (27.0-33.0); MEAN CORPUSCULAR HGB CONC 31.7 g/dl (32.0-36.5); MEAN CORPUSCULAR VOLUME 96.1 fl (80.0-96.0); PLATELET COUNT, AUTOMATED 171 10^3/uL (150-450); RED BLOOD COUNT 4.37 10^6/uL (4.30-6.10); WHITE BLOOD COUNT 5.7 10^3/uL (4.0-10.0)
[2019-04-07 06:43] LABS: CALCIUM LEVEL 8.5 MG/DL (8.8-10.2); CREATININE FOR GFR 4.07 MG/DL (0.70-1.30); GLOMERULAR FILTRATION RATE 15.1 (>35); POTASSIUM SERUM 4.1 MEQ/L (3.5-5.1)
[2019-04-07] MEDS: SODIUM BICARBONATE 325 MG TAB PO SCH ×2 (08:15→20:48)
[2019-04-07] MEDS: ceFAZolin SOD 500 MG in D5W MINI-BAG PLUS 50 ML IV SCH ×2 (08:15→20:48)
[2019-04-07] MEDS: POTASSIUM CHLORIDE 10 MEQ SR TABLET PO SCH ×2 (08:16→20:48)
[2019-04-07] MEDS: FERROUS GLUCONATE 324 MG TAB PO SCH ×2 (08:17→20:48)
[2019-04-07] MEDS: OMEPRAZOLE 20 MG CAP PO SCH ×2 (08:17→20:48)
[2019-04-07] MEDS: BISOPROLOL FUM 2.5 MG PER 1/2TAB PO SCH (08:17)
[2019-04-07] MEDS: CLOPIDOGREL 75 MG TAB PO SCH (08:17)
[2019-04-07] MEDS: OCUVITE 1 TAB PO SCH (08:17)
[2019-04-07] MEDS: QUEtiapine FUMARATE 25 MG TAB PO SCH (08:17)
[2019-04-07] MEDS: ASCORBIC ACID 500 MG TAB PO SCH (08:18)
[2019-04-07] MEDS: buPROPion **XL** TABLET 150MG (WELLBUTRIN XL) PO SCH (08:18)
[2019-04-07] MEDS: ISOSORBIDE MON. (IMDUR) 30 MG XR TAB PO SCH (08:25)
--- NOTE | 2019-04-07 10:42 | IPN ---
DATE OF SERVICE: 04/07/2019 Avel's behavior continues to be a problem. He still has [id number]-night awakening where he is disinhibited. For example, he was apparently out in the hallways wearing only an adult diaper and required staff to get him back in his room. He has frontotemporal atrophy with disinhibitions. We have been trying to treat this with medications. He is being treated for a Escherichia (E.) coli urinary tract infection (UTI). He has declining renal function. I am concerned about this. He has stage IV chronic kidney disease at baseline, and now his renal function has deteriorated further. PHYSICAL EXAMINATION: Vital signs stable. Blood pressure (BP) 119/63. Afebrile. General appearance: He is lying in bed sleeping. He awakened. Recognized me. Answered questions appropriately. Lungs clear. Heart: Regular rate and rhythm. No costovertebral angle (CVA) tenderness. Trace peripheral edema. Moves arms and legs with equal strength. LABORATORIES: Creatinine is up to 4.0. Complete blood count (CBC) unremarkable. IMPRESSION: 1. Metabolic encephalopathy related to urinary tract infection. He has grown Escherichia (E.) coli sensitive to Ancef, which we will continue. Probably put him on Keflex in the next few days. 2. Frontotemporal dementia. I met with his , Catherine, who unfortunately is hospitalized on the same floor after having a large hematoma at her intravenous (IV) fistula site. We discussed Avel's dementia, which has been increasingly problematic over the last year. She has been considering usp placement but is not ready to do that yet. We spent a lot of time discussing his current situation and that he will probably need placement in the near future. She carries a lot of guilt over this, which I tried assuage through our discussion. I am adjusting his Seroquel to 25 mg in the morning and 50 mg at bedtime to try to reduce these bedtime outbursts. The rest of his medical problems are stable as outlined in the last note.
[2019-04-07] MEDS ORDERED: LACTATED RINGER'S 1000 ML IV ONE (13:00)
--- NOTE | 2019-04-07 13:20 | IPN ---
DATE: 04/07/2019 Avel was found to be hypoventilatory and unresponsive shortly after lunch time. He had been down getting his renal ultrasound and returned. Staff noticed that his pressures were low as well; systolic pressure in 80s. The patient was placed in Trendelenburg. Lactated Ringers were started by Lulú Bianchi. I went in to see the patient. Sternal rub and vigorous verbal stimulation led to him opening his eyes and answering questions. Oxygen saturation is satisfactory. IMPRESSION: Hypoventilation, probably secondary to combination of Haldol that he received at 3:55 this morning and his Seroquel that he got at 8:17 a.m. PLAN: I am holding his bisoprolol and isosorbide. He is receiving a bolus of Lactated Ringers. His Haldol has been discontinued. His , Catherine, coincidentally is on the floor and admitted in a different room and I will discuss advanced directives with her.
--- NOTE | 2019-04-07 13:25 | IPN ---
DATE: 04/07/2019 I was having a conversation with Avel Raman's and healthcare agent, Catherine. She says the patient has previously expressed, in very certain terms, that he would never want to be resuscitated, intubated or tube fed. I made out a medical orders for life-sustaining treatment (MOLST) form, which is DO NOT RESUSCITATE/DO NOT INTUBATE, no tube feeding, trial of intravenous (IV) fluids, trial of antibiotic therapy if necessary, and hospitalization if necessary.
[2019-04-07] MEDS ORDERED: LR 1,000 ML IV SCH (14:00)
--- NOTE | 2019-04-07 14:08 | REP ---
Renal ultrasound: The right kidney is atrophic size measuring 7.1 x 3.0 x 4.2 cm. The left kidney is normal size measuring 10.2 x 3.5 x 4.8 cm. The right renal cortex is hyperechoic compatible with medical renal disease. The left renal cortex demonstrates normal echogenicity. There are echogenic vessels in the renal steffany bilaterally compatible with calcified atheroma. There are no renal calculi. There is no hydronephrosis. There are no solid renal masses. There are bilateral renal cysts: Right Kidney: 1.5 cm upper pole cyst pole Bosniak type 1 simple cyst. Left kidney. 2.0 cm upper pole cyst with nodular wall thickening, Bosniak type 3 renal cyst. 1.4 cm upper pole cyst, Bosniak type 1 simple cyst. Bladder: There is echogenic mobile debris layering along the dependent bladder wall. Impression: There is a Bosniak type 3 cyst in the left renal upper pole. The other renal cysts are Bosniak type 1 simple cysts. The right kidney is atrophic. There is layering echogenic mobile debris in the bladder. Electronically Signed by Paul Kolb MD 04/07/2019 01:59 P
[2019-04-07] MEDS: GABAPENTIN 100 MG CAP PO SCH (20:48)
[2019-04-07] MEDS: QUEtiapine FUMARATE 50 MG TAB PO SCH (20:48)
[2019-04-08 06:00] VITALS: BP 129/78
[2019-04-08] MEDS: LEVOTHYROXINE 25MCG TABLET (0.025MG) PO SCH ×2 (06:00→06:25)
[2019-04-08 06:23] LABS: HEMATOCRIT 38.5 % (42.0-52.0); HEMOGLOBIN 12.5 g/dl (13.5-17.5); MEAN CORPUSCULAR HEMOGLOBIN 30.3 pg (27.0-33.0); MEAN CORPUSCULAR HGB CONC 32.5 g/dl (32.0-36.5); MEAN CORPUSCULAR VOLUME 93.4 fl (80.0-96.0); PLATELET COUNT, AUTOMATED 196 10^3/uL (150-450); RED BLOOD COUNT 4.12 10^6/uL (4.30-6.10); WHITE BLOOD COUNT 4.9 10^3/uL (4.0-10.0)
[2019-04-08 06:35] LABS: CALCIUM LEVEL 8.9 MG/DL (8.8-10.2); CREATININE FOR GFR 3.79 MG/DL (0.70-1.30); GLOMERULAR FILTRATION RATE 16.4 (>35); POTASSIUM SERUM 4.6 MEQ/L (3.5-5.1)
[2019-04-08] MEDS: QUEtiapine FUMARATE 25 MG TAB PO SCH (09:31)
[2019-04-08] MEDS: SODIUM BICARBONATE 325 MG TAB PO SCH ×2 (09:31→21:43)
[2019-04-08] MEDS: OMEPRAZOLE 20 MG CAP PO SCH ×2 (09:31→21:43)
[2019-04-08] MEDS: ASCORBIC ACID 500 MG TAB PO SCH (09:31)
[2019-04-08] MEDS: POTASSIUM CHLORIDE 10 MEQ SR TABLET PO SCH (09:32)
[2019-04-08] MEDS: OCUVITE 1 TAB PO SCH (09:32)
[2019-04-08] MEDS: ceFAZolin SOD 500 MG in D5W MINI-BAG PLUS 50 ML IV SCH (09:32)
[2019-04-08] MEDS: CLOPIDOGREL 75 MG TAB PO SCH (09:32)
[2019-04-08] MEDS: buPROPion **XL** TABLET 150MG (WELLBUTRIN XL) PO SCH (09:32)
[2019-04-08] MEDS: FERROUS GLUCONATE 324 MG TAB PO SCH ×2 (09:32→21:46)
--- NOTE | 2019-04-08 11:37 | IPN ---
DATE: 04/08/2019 Avel is seen [facility]. He pulled his IVs out again. Had to put him on antibiotics. Renal function is below baseline and consulting nephrology. PHYSICAL EXAMINATION: Afebrile. Vital signs stable. Alert and conversant. Exam is unchanged. Lungs clear. Heart regular rhythm. Abdomen soft, nontender. Moves arms and legs with equal strength. GFR is down to 16, potassium is 4.6. IMPRESSION: 1. Urinary tract infection secondary to E. Coli. He is pulling his IVs out and will not allow us to continue IV access. Will stop the IV cefazolin and start him on Keflex. 2. Chronic kidney disease with slight decline in renal function from baseline. Spoke with nephrology Dr. Petersen and she will see the patient in consultation. 3. Hypertensive heart disease. Blood pressure medications were held when he was hypotensive. Blood pressure remains adequately controlled. Will eventually probably have to restart these. 4. Dementia. We are trying to find a dose of Seroquel that will continue his frontal/temporal dementia with disinhibition. 5. Hypothyroidism. Continue current of levothyroxine.
[2019-04-08 14:00] VITALS: BP 137/79
[2019-04-08] MEDS: GABAPENTIN 100 MG CAP PO SCH (21:43)
[2019-04-08] MEDS: CEPHALEXIN 500 MG CAP PO SCH (21:43)
[2019-04-08] MEDS: QUEtiapine FUMARATE 50 MG TAB PO SCH (21:43)
[2019-04-08 22:00] VITALS: BP 135/65
[2019-04-09] MEDS: LEVOTHYROXINE 25MCG TABLET (0.025MG) PO SCH (05:49)
[2019-04-09 05:54] LABS: HEMOGLOBIN 13.2 g/dl (13.5-17.5); MEAN CORPUSCULAR HEMOGLOBIN 30.8 pg (27.0-33.0); MEAN CORPUSCULAR HGB CONC 32.2 g/dl (32.0-36.5); MEAN CORPUSCULAR VOLUME 95.6 fl (80.0-96.0); PLATELET COUNT, AUTOMATED 189 10^3/uL (150-450); RED BLOOD COUNT 4.29 10^6/uL (4.30-6.10)
[2019-04-09 06:00] VITALS: BP 126/71
[2019-04-09 06:16] LABS: CALCIUM LEVEL 8.9 MG/DL (8.8-10.2); CREATININE FOR GFR 3.78 MG/DL (0.70-1.30); GLOMERULAR FILTRATION RATE 16.5 (>35); POTASSIUM SERUM 4.8 MEQ/L (3.5-5.1)
[2019-04-09] MEDS: SODIUM BICARBONATE 325 MG TAB PO SCH ×2 (08:05→22:05)
[2019-04-09] MEDS: QUEtiapine FUMARATE 25 MG TAB PO SCH (08:05)
[2019-04-09] MEDS: OMEPRAZOLE 20 MG CAP PO SCH ×2 (08:05→22:05)
[2019-04-09] MEDS: ASCORBIC ACID 500 MG TAB PO SCH (08:05)
[2019-04-09] MEDS: OCUVITE 1 TAB PO SCH (08:05)
[2019-04-09] MEDS: buPROPion **XL** TABLET 150MG (WELLBUTRIN XL) PO SCH (08:05)
[2019-04-09] MEDS: CLOPIDOGREL 75 MG TAB PO SCH (08:05)
[2019-04-09] MEDS: FERROUS GLUCONATE 324 MG TAB PO SCH ×2 (08:05→22:05)
[2019-04-09] MEDS: CEPHALEXIN 500 MG CAP PO SCH ×2 (08:05→22:05)
[2019-04-09] MEDS ORDERED: D5W 1,000 ML IV SCH (10:00)
--- NOTE | 2019-04-09 13:27 | IPN ---
DATE: 04/09/2019 Avel is belligerent. He wants to leave. He wants to drive himself home. He has been seen by nephrology and they have ordered some D5W for him. He is on Keflex for his urinary tract infection (UTI). He was started on some bicarbonate by nephrology as well. Per nursing staff, no overt behavioral problems overnight. PHYSICAL EXAM: Afebrile. Vital signs stable. He is alert and conversant. He knows where he is. He is quite vocal and demands to be discharged. Lungs: Clear. Heart: Regular rate and rhythm. Abdomen: Obese, nontender. No masses. No peripheral edema. LABS: White count is normal. Electrolytes show that his creatinine is stable at 3.78. IMPRESSION: 1. Metabolic encephalopathy secondary to Escherichia (E) coli urinary tract infection (UTI). He has been pulling his IVs out, so now on oral Keflex. 2. Chronic kidney disease. Dr. Petersen is seeing him and ordered IV bicarbonate as above. 3. Hypertensive heart disease. Blood pressure well controlled. 4. Dementia. He is on Seroquel. Trying to control his behavior as best we can. He is not cooperating with fully with the nurses, but he is also not out walking in the hallway with his just his diaper on or going into patients rooms, so that is progress. Continue his Seroquel 25 mg in the morning and 50 mg in the evening. Disposition is an issue. His really cannot take care of him at home. He is refusing placement. Patient and family services (PFS) will need to help us out with this.
[2019-04-09] MEDS ORDERED: HALOPERIDOL 5 MG/ML VIAL (J1630) IM PRN (16:00)
--- NOTE | 2019-04-09 16:55 | CR ---
DATE OF CONSULTATION: 04/08/2019 REQUESTING PHYSICIAN: Dr. Bianchi. REASON FOR CONSULTATION: Acute kidney injury (DARNELL) on chronic kidney disease (CKD) stage IV. HISTORY OF PRESENT ILLNESS: Avel Raman is an 79-year-old male with a past medical history of dementia, hypertension with hypertensive heart disease, coronary artery disease status post stenting, history of bladder cancer, dyslipidemia, chronic obstructive pulmonary disease (COPD), history of recurrent urinary tract infections. Patient has known underlying advanced CKD stage IV with a baseline GFR of about 20 mL/min and known class III Bosniak left renal cyst and other comorbid conditions mentioned below. Patient was admitted on 04/05/2019 for altered mental status and aggressive behavior at home, which is in the setting of Escherichia (E) coli urinary tract infection. He has been seen by neurology for his metabolic encephalopathy and titration of his neuropathic medications for his E-coli urinary tract infection. He has been receiving intravenous (IV) antibiotics. Patient had an admission creatinine of 3.2, which did rise as high as 4.0 yesterday. He received IV fluids yesterday (lactated Ringer's) with some improvement in his renal function. PAST MEDICAL AND PAST SURGICAL HISTORY: 1. Chronic kidney disease (CKD) stage IV. 2. Atrophic right kidney. 3. Complex left renal cyst, 4. Hypertension. 5. Hypertensive heart disease. 6. Coronary artery disease status post stenting. 7. History of bladder cancer status post cystoprostatectomy and bilateral lymph node dissection. 8. Dementia. 9. Dyslipidemia 10. Chronic obstructive pulmonary disease (COPD). 11. Recurrent urinary tract infections (UTIs). 12. Esophageal stricture requiring periodic dilatation. 13. Iron deficiency anemia. 14. Chronic duodenitis. 15. Gastritis. 16. Neuropathy. 17. Lumbar spinal stenosis. 18. Appendectomy. 19. Status post pacemaker. 20. Cataract extraction. 21. Right inguinal hernia repair. 22. Esophagogastroduodenoscopy (EGD) and colonoscopy. 23. Laminectomies. 24. Carpal tunnel surgery. 25. Cardiac catheterization. 26. Transurethral resection of a bladder tumor. 27. Bronchoscopy. FAMILY HISTORY: Congestive heart failure in his father and stroke in mother. Brother of renal failure and diabetic complications. SOCIAL HISTORY: He is , lives with his Catherine. He is an ex-smoker. There is no alcohol or drug use. ALLERGIES: CONTRAST, SULFA, TAPE, HALOPERIDOL, HYDROCODONE, IODINE, MORPHINE. HOME MEDICATIONS: Reviewed and include: - Tylenol - vitamin C - bisoprolol - hydrochlorothiazide - bupropion - calcitriol - Plavix - ferrous gluconate - gabapentin - isosorbide mononitrate - levothyroxine - minoxidil - multivitamin - omeprazole - potassium chloride - Seroquel - sodium bicarbonate REVIEW OF SYSTEMS: Limited secondary to patient's dementia; however, he denies fevers, chills. Denies chest pain, shortness of breath, nausea, vomiting, diarrhea, dysuria or leg swelling. VITAL SIGNS: Temperature 97.8, pulse 59, respiratory rate 18, blood pressure 137/79, saturating 96% on room air. Intake yesterday was not fully recorded. He has been having incontinent voids. Weight in the bed scale today is not recorded. GENERAL: Patient is seen lying in bed, elderly male, appears stated age, comfortable, in no acute distress. He is awake, alert and conversational, answers some simple questions appropriately, makes good eye contact. Extraocular muscles are intact. The tongue is moist. The neck is supple. The jugular veins were not elevated. Heart sounds are regular. S1-S2. There is no edema in the peripheries nor in the dependent area. Lungs show symmetric air entry. No crackle rale or rhonchus. Abdomen is soft and nontender to palpation. There is no Garza catheter. The extremities show decreased lean muscle mass and are negative for edema. NEUROLOGIC: Patient thinks the year 2003. He is able to tell me his name and his date of and his 's name. He also knows he is in the hospital in [place]. He is cooperative with physical exam. He does not know is President. SKIN: Normal temperature and turgor. LABORATORY DATA: Sodium 145, potassium 4.6, bicarbonate 23, BUN 62, creatinine 3.7. Hemoglobin 12.5, platelet 196. Urine culture; Escherichia (E) coli. Renal ultrasound 04/07/2019: Bosniak type III cyst on the left kidney and the right kidney is atrophic and 7 cm. INPATIENT MEDICATIONS: - Tylenol as needed - vitamin C 500 mg by mouth daily - bupropion 150 mg by mouth daily - Keflex 500 mg by mouth twice a day - Plavix 75 mg by mouth daily - ferrous gluconate 324 mg by mouth twice a day - gabapentin 100 mg by mouth nightly - Synthroid 25 mcg by mouth daily - Ocuvite one tablet by mouth daily - omeprazole 40 mg by mouth twice a day - Seroquel 50 mg by mouth nightly and 25 mg by mouth in the morning - sodium bicarbonate 1300 mg by mouth twice a day PROBLEMS: 1. Acute kidney injury (DARNELL) on chronic kidney disease (CKD) stage IV. Patient has a baseline GFR of about 20 mL/min. His baseline creatinine is in the high 2s. His peak creatinine on this admission was 4.0. I do note that he received a fluid bolus of lactated Ringer's yesterday with improvement in urine output and serum creatinine. He is not on any overt nephrotoxics. His medications are dosed appropriately for a GFR. Renal imaging was negative for any obstruction. I have asked nursing staff to place plenty of beverages at his bedside and to encourage oral fluid intake of 50 ounces daily. I am reducing his sodium bicarbonate supplementation and I am discontinuing his potassium supplementation at present. 2. Non-anion gap metabolic acidosis. It is improved from prior. His bicarbonate has come up from 19 t0 23. His sodium bicarbonate is being decreased. There is quite a fault load with the current dose. 3. History of hypertension. I see that the patient was hypotensive on 04/07/2019, with systolic in the 80s and 90s. His home antihypertensives have appropriately been held since then and his present systolic is quite satisfactory, in the 120s and 130s. I recommend to continue to hold his hypertensives at present until and unless systolic is persistently greater than 150. 4. Escherichia (E)coli urinary tract infection (UTI). Patient is status post cephazolin, had trouble with IV access and is now pending switched to Keflex. 5. Bosniak type III left renal cyst. Does have a 50% chance of malignancy. He does follow up with both urology and nephrology as an outpatient. This complex cyst can be further addressed in the outpatient setting. Thank you for involving me in the care of Mr. Raman. I will be happy to follow him along with you.
[2019-04-09 22:00] VITALS: BP 128/73
[2019-04-09] MEDS: QUEtiapine FUMARATE 50 MG TAB PO SCH (22:05)
[2019-04-09] MEDS: GABAPENTIN 100 MG CAP PO SCH (22:05)
[2019-04-10] MEDS: LEVOTHYROXINE 25MCG TABLET (0.025MG) PO SCH (05:33)
[2019-04-10 06:21] LABS: HEMATOCRIT 39.3 % (42.0-52.0); HEMOGLOBIN 12.7 g/dl (13.5-17.5); MEAN CORPUSCULAR HEMOGLOBIN 30.2 pg (27.0-33.0); MEAN CORPUSCULAR HGB CONC 32.3 g/dl (32.0-36.5); MEAN CORPUSCULAR VOLUME 93.6 fl (80.0-96.0); PLATELET COUNT, AUTOMATED 183 10^3/uL (150-450)
--- NOTE | 2019-04-10 06:23 | IPN ---
DATE: 04/09/2019 SUBJECTIVE: The patient was seen and examined at bedside this morning. He currently has no new complaints, but the patient does have a degree of dementia. There was no adverse events reported overnight. OBJECTIVE: VITAL SIGNS: Temperature 97.6, pulse 81, respiratory rate 18, blood pressure 126/71, pulse oximetry 97% on room air. GENERAL: The patient is awake. He is alert. He is not oriented to time or place. He does not appear in any acute distress. He is lying comfortably in bed. He is pleasant. CARDIOVASCULAR: Normal S1, S2, regular rate and rhythm. No clicks, rubs or murmurs. No jugular venous distension (JVD). PULMONARY: Clear vesicular breath sounds bilaterally. No wheezes, rhonchi or rales. Good air entry. Symmetrical chest expansion. ABDOMEN: Soft, nondistended, nontender to palpation in all four quadrants. Positive bowel sounds throughout. EXTREMITIES: No clubbing or cyanosis. No edema in bilateral lower extremities. 2+ posterior tibial and radial pulses bilaterally. PSYCHIATRIC: Mood and affect appear appropriate. The patient has a degree of dementia. LABORATORY DATA: Hematology: White blood cell count 5.0, hemoglobin 13.2, hematocrit 41.0, platelet count 189. Chemistries: Sodium 145, potassium 4.8, chloride 114, carbon dioxide 23, BUN 54, creatinine 3.78, fasting glucose 97, calcium 8.9. ASSESSMENT AND PLAN: 1. Acute kidney injury on chronic kidney disease, stage III: The patient presented with a likely urinary tract infection (UTI). The patient had an increase in his creatinine. He has received fluid hydration. He is currently receiving 1 liter of D5W. His creatinine has improved overnight. Will continue to monitor. 2. Urinary tract infection (UTI) secondary to Escherichia coli: The patient was found to have urinary tract infection. Culture positive for E. coli. The patient is currently on oral Keflex per the primary team. 3. Hypertension. The patient has a history of hypertension. His blood pressure medications are currently on hold. He is currently normotensive. 4. Left Bosniak type 3 renal cyst and right atropic kidney on renal ultrasound. The patient will follow up as an outpatient for further management. AMBER
[2019-04-10 06:43] LABS: CALCIUM LEVEL 8.6 MG/DL (8.8-10.2); CREATININE FOR GFR 3.71 MG/DL (0.70-1.30); GLOMERULAR FILTRATION RATE 16.8 (>35); POTASSIUM SERUM 4.3 MEQ/L (3.5-5.1)
[2019-04-10] MEDS: SODIUM BICARBONATE 325 MG TAB PO SCH (09:42)
[2019-04-10] MEDS: CEPHALEXIN 500 MG CAP PO SCH (09:43)
[2019-04-10] MEDS: OMEPRAZOLE 20 MG CAP PO SCH (09:43)
[2019-04-10] MEDS: ASCORBIC ACID 500 MG TAB PO SCH (09:43)
[2019-04-10] MEDS: FERROUS GLUCONATE 324 MG TAB PO SCH (09:43)
[2019-04-10] MEDS: QUEtiapine FUMARATE 25 MG TAB PO SCH (09:43)
[2019-04-10] MEDS: buPROPion **XL** TABLET 150MG (WELLBUTRIN XL) PO SCH (09:43)
[2019-04-10] MEDS: OCUVITE 1 TAB PO SCH (09:43)
[2019-04-10] MEDS: CLOPIDOGREL 75 MG TAB PO SCH (09:43)
[2019-04-10] MEDS ORDERED: CEPH500C PO (12:32)
[2019-04-10] MEDS ORDERED: QUET1TAB7 PO (12:32)
[2019-04-10] MEDS ORDERED: QUET5TAB PO (12:32)
--- NOTE | 2019-04-10 14:26 | DSES ---
DATE OF ADMISSION: 04/06/2019 DATE OF DISCHARGE: PRINCIPAL DIAGNOSES: 1. Escherichia coli urinary tract infection with metabolic encephalopathy. 2. Metabolic encephalopathy with worsening of dementia symptoms from UTI. 3. Chronic kidney disease stage IV. 4. Hypertensive heart disease. 5. Dementia with behavioral disturbance. HISTORY: Avel Raman was admitted with behavioral disturbance. Initially thought to be a social admission, but it was uncovered that he had a urinary tract infection causing worsening behavior. HOSPITAL COURSE: Admitted to a medical bed, started on Ancef. Dr. Jesus saw him in consultation. Plan is to see him in the office. Hudson he has frontotemporal dementia with lack of inhibition and behavioral disturbance. We started Seroquel. He recommended increasing the dose. He recommended seeing Dr. Paredes as an outpatient. We had several episodes where Avel was uncooperative. Yesterday he tried to leave and [facility] His Catherine was hospitalized during Avel's admission. She had a vascular problem develop at a dialysis graft. She has since been discharged. Today, she would like to take him home. She thinks she is ready to care for him. She thinks his behavior is much better than what it has been and he does seem to be responding to the Seroquel at its current dose of 25 mg in the morning and 50 mg in the evening with improved behavior. She would like a home health referral, but does not want to wait to keep him here until Friday, so he will go home today and will do the home health referral for Friday. SIGNIFICANT LABS: Today white count is 5, hemoglobin 12.7, platelets 183. Sodium 142, potassium 4.2, BUN 61, creatinine 3.7, glucose 101. DISPOSITION: The patient is discharged home in improved and stable condition. His behavior does seem better. His wants him to go home today. I advocated waiting until Friday so we can get a home health evaluation, but she does not want to wait until then. Avel agrees not to drive and going to cooperate with his with things such as bathing and taking his medications. The patient will be discharged home on: - bisoprolol/hydrochlorothiazide 2.5-6.25 mg daily - bupropion XL 150 mg daily - calcitriol 25 mcg daily - Plavix 75 mg daily - ferrous sulfate 324 mg daily - gabapentin 100 mg at bedtime - isosorbide mononitrate 30 mg daily - probiotic daily - levothyroxine 25 mcg daily - omeprazole 40 mg twice a day - potassium chloride 10 mEq twice a day - sodium bicarbonate 1500 mg twice a day - multivitamin New medications are Keflex 500 mg twice a day for five more days and Seroquel 25 mg in the morning and 50 mg before bedtime. He will follow-up in our office in a week. He will follow-up with neurology per their office. A home health referral has been made.
--- NOTE | 2019-04-10 14:58 | IPN ---
DATE: 04/10/2019 SUBJECTIVE: The patient was seen and examined at the bedside this morning. He is accompanied by his . There currently no new complaints. There were no adverse events reported overnight. The patient does have dementia. OBJECTIVE: VITAL SIGNS: Temperature 98.8, pulse 86, respiratory rate 17, pulse oximetry 90% on room air. GENERAL: The patient is awake. He is alert. He is not oriented to time or place. He does not appear in any acute distress. He is lying in bed comfortably. Accompanied by his at bedside. CARDIOVASCULAR: Normal S1, S2, regular rate and rhythm. No clicks, rubs or murmurs. No jugular venous distension (JVD) noted. PULMONARY: Clear vesicular breath sounds bilaterally. No wheezes, rhonchi or rales. Good air entry. Symmetrical chest expansion. ABDOMEN: Soft, nondistended, nontender to palpation in all four quadrants. Positive bowel sounds throughout. EXTREMITIES: No clubbing or cyanosis. Trace pitting edema in bilateral lower extremities. 2+ posterior tibial and radial pulses bilaterally. PSYCHIATRIC: Mood and affect appear appropriate. The patient has dementia. LABORATORY DATA: Hematology: White blood cell count 5.0, hemoglobin 12.7, hematocrit 39.3, platelet count 183. Chemistries: Sodium 142, potassium 4.3, chloride 113, carbon dioxide 23, BUN 61, creatinine 3.71, GFR 16.8, fasting glucose 101. Calcium 8.6. ASSESSMENT AND PLAN: 1. Acute kidney injury on chronic kidney disease, stage IV. The patient originally presented with a urinary tract infection (UTI). He had an increase in his creatinine. He has received IV fluid hydration. He received 1 liter of D5 yesterday. His creatinine has shown some improvement. His GFR is currently 16.8. The patient will likely need hemodialysis in the future at some point. The patient had stated at bedside that he would receive hemodialysis if the time came when he would need it. From a nephrology standpoint, once the patient is cleared by his primary team he can follow-up with nephrology. 2. Urinary tract infection (UTI) secondary to E. Coli. Patient was found to have a urinary tract infection positive for E. Coli. The patient is currently on oral Keflex per the primary team. 3. Hypertension. The patient has a history of hypertension. His blood pressure medications are currently on hold. He has remained normotensive during his hospitalization. 4. Left Bosniak type 3 renal cyst and right atropic kidney on renal ultrasound. The patient will follow-up as an outpatient for further management. AMBER
== END 2019-04-10 16:23 | disposition home health service (06) | DRG 56 ==
LOC: M ED 09:10 → UNDOADMOB 13:11 → M ED INP 13:11 → INTOOBSV 16:37 → OBSVTOIN 16:37 → M ED INP 22:00 → M MSPAV 22:00 → M ED INP 04-06 16:37 → M MSPAV 04-06 16:37 → EEVIPCON 04-06 16:37 → INTOOBSV 04-06 16:37 → OBSVTOIN 04-06 16:37
PROVIDERS: ADMIT Family Medicine; ATTEND Family Medicine
DX: G31.09 Other frontotemporal neurocognitive disorder (principal); G93.41 Metabolic encephalopathy; F02.81 Dementia in other diseases classified elsewhere, unspecified severity, with behavioral disturbance; N39.0 Urinary tract infection, site not specified; N18.4 Chronic kidney disease, stage 4 (severe); N17.9 Acute kidney failure, unspecified; I25.10 Atherosclerotic heart disease of native coronary artery without angina pectoris; I13.10 Hypertensive heart and chronic kidney disease without heart failure, with stage 1 through stage 4 chronic kidney disease, or unspecified chronic kidney disease; E78.5 Hyperlipidemia, unspecified; Z66 Do not resuscitate; R13.10 Dysphagia, unspecified; K22.2 Esophageal obstruction; D50.9 Iron deficiency anemia, unspecified; B96.20 Unspecified Escherichia coli [E. coli] as the cause of diseases classified elsewhere; K29.80 Duodenitis without bleeding; D63.8 Anemia in other chronic diseases classified elsewhere; N28.1 Cyst of kidney, acquired; N26.1 Atrophy of kidney (terminal); I25.2 Old myocardial infarction; Z98.41 Cataract extraction status, right eye; Z88.2 Allergy status to sulfonamides; Z95.5 Presence of coronary angioplasty implant and graft; Z88.1 Allergy status to other antibiotic agents; Z85.51 Personal history of malignant neoplasm of bladder; Z88.5 Allergy status to narcotic agent; Z88.8 Allergy status to other drugs, medicaments and biological substances; Z91.048 Other nonmedicinal substance allergy status; Z91.041 Radiographic dye allergy status; M48.061 Spinal stenosis, lumbar region without neurogenic claudication; Z98.42 Cataract extraction status, left eye; Z87.891 Personal history of nicotine dependence

== ENCOUNTER → 2019-04-19 | Outpatient (REF) | payer MEDICARE ==
[~2019-04-19] MED LIST changes: +CEPH500C PO; +PHARMACY COMMENT; +POTA10CA32 PO; +QUET1TAB7 PO; +QUET5TAB PO; +SERO1TAB3 PO; +ZIAC2.5T PO
== END ==
LOC: M SFHCADAM 11:47
PROVIDERS: ATTEND Family Medicine
DX: N39.0 Urinary tract infection, site not specified (principal); F02.81 Dementia in other diseases classified elsewhere, unspecified severity, with behavioral disturbance

== ENCOUNTER 2019-04-30 14:39 | Emergency (ER) | payer MEDICARE ==
[~2019-04-30] VITALS: Ht 177.8 cm; Wt 79.5 kg
[~2019-04-30 14:39] MED LIST changes: +BISO5TAB14 PO; -BISO5TAB5 PO; +OMEP1CAP73 PO; -OMEP20CA4 PO; -OMEP40CA2 PO; +OMEP40CA97 PO
[2019-04-30 15:44] LABS: BASO % 0.5 % (0.0-1.0); EOS # 0.3 10^3/uL (0.0-0.50); EOS % 4.3 % (0.0-3.0); HEMOGLOBIN 11.2 g/dl (13.5-17.5); LYMPH # 1.2 10^3/uL (1.5-4.5); LYMPH % 19.7 % (24.0-44.0); MEAN CORPUSCULAR HEMOGLOBIN 30.3 pg (27.0-33.0); MEAN CORPUSCULAR HGB CONC 31.1 g/dl (32.0-36.5); MEAN CORPUSCULAR VOLUME 97.3 fl (80.0-96.0); MONO # 0.6 10^3/uL (0.0-0.8); MONO % 9.9 % (0.0-5.0); NEUTROPHILS # 3.8 10^3/uL (1.8-7.7); NEUTROPHILS % 65.1 % (36.0-66.0); PLATELET COUNT, AUTOMATED 239 10^3/uL (150-450); WHITE BLOOD COUNT 5.8 10^3/uL (4.0-10.0)
[2019-04-30 16:16] LABS: BLOOD UREA NITROGEN 62 MG/DL (7-18); CARBON DIOXIDE LEVEL 25 MEQ/L (21-32); CHLORIDE LEVEL 109 MEQ/L (98-107); CK-MB VALUE MASS 3.1 NG/ML (<3.6); CPK CREATINE PHOSPHOKINASE 103 U/L (39-308); CREATININE FOR GFR 3.83 MG/DL (0.70-1.30); GLOMERULAR FILTRATION RATE 16.2 (>35); GLUCOSE, FASTING 114 MG/DL (70-100); MB/CK RELATIVE INDEX 3.01 (< OR =4); POTASSIUM SERUM 4.7 MEQ/L (3.5-5.1); SODIUM LEVEL 142 MEQ/L (136-145); TROPONIN I < 0.02 NG/ML (< 0.10)
[2019-04-30 18:15] VITALS: BP 167/83
--- NOTE | 2019-04-30 20:15 | REP ---
CHEST, SINGLE VIEW: Single view of the chest is performed and compared to a prior study of 08/15/2018. I see no acute infiltrate or pulmonary edema. Heart does not appear to be significantly enlarged. There is calcification of the thoracic aorta. The mediastinal silhouette is unchanged. Right pacemaker is again noted. Multiple leads are seen unchanged. IMPRESSION: No acute infiltrate or pulmonary edema. Electronically Signed by Paul Perry MD 05/03/2019 11:32 A
[2019-04-30 21:23] LABS: CK-MB VALUE MASS 2.7 NG/ML (<3.6); CPK CREATINE PHOSPHOKINASE 96 U/L (39-308); MB/CK RELATIVE INDEX 2.81 (< OR =4); TROPONIN I < 0.02 NG/ML (< 0.10)
--- NOTE | 2019-05-01 08:07 | ECGEPIP ---
[facility] - ED Test Date: 2019-04-30 Pat Name: BILL ROSE Department: Room: - Gender: Male Credit Officer: mavis : 1940 Requested By: Kofi Walters Order Number: [id number] Reading MD: Michaela Hernandez Measurements Intervals [place] Rate: 60 P: 38 W[place]: 144 QRS: 10 QRSD: 100 T: 55 QT: 411 QTc: 412 Interpretive Statements SINUS RHYTHM INCOMPLETE RIGHT BUNDLE BRANCH BLOCK MODERATE VOLTAGE CRITERIA FOR LVH, CONSIDER NORMAL VARIANT INFERIOR INFARCT, AGE INDETERMINATE DECREASED RATE 04/05/19 Electronically Signed on 05-01-2019 8:07:13 EDT by Michaela Hernandez
--- NOTE | 2019-05-01 08:11 | ECGEPIP ---
[facility] - ED Test Date: 2019-04-30 Pat Name: BILL ROSE Department: Room: - Gender: Male Shift Supervisor Rn: ELODIA : 1940 Requested By: Kofi Walters Order Number: [id number] Reading MD: Michaela Hernandez Measurements Intervals [place] Rate: 63 P: 99 CO: 154 QRS: 12 QRSD: 102 T: 49 QT: 392 QTc: 403 Interpretive Statements SINUS RHYTHM INCOMPLETE RIGHT BUNDLE BRANCH BLOCK INFERIOR INFARCT, AGE INDETERMINATE MINIMAL VOLTAGE CRITERIA FOR LVH, CONSIDER NORMAL VARIANT baseline artifact may affect interpretation SIMILAR 14:49 Electronically Signed on 05-01-2019 8:11:41 EDT by Michaela Hernandez
== END 2019-04-30 23:18 | disposition home or self-care (01) ==
LOC: M ED 14:39
DX: R07.89 Other chest pain (principal); I45.19 Other right bundle-branch block; I12.9 Hypertensive chronic kidney disease with stage 1 through stage 4 chronic kidney disease, or unspecified chronic kidney disease; J44.9 Chronic obstructive pulmonary disease, unspecified; N18.4 Chronic kidney disease, stage 4 (severe); E78.5 Hyperlipidemia, unspecified; Z95.0 Presence of cardiac pacemaker; Z79.899 Other long term (current) drug therapy; Z79.02 Long term (current) use of antithrombotics/antiplatelets; Z88.1 Allergy status to other antibiotic agents; Z88.2 Allergy status to sulfonamides; Z88.5 Allergy status to narcotic agent; Z88.8 Allergy status to other drugs, medicaments and biological substances; Z91.041 Radiographic dye allergy status; Z91.048 Other nonmedicinal substance allergy status

== ENCOUNTER → 2019-06-03 | Outpatient (REF) | payer MEDICARE ==
[~2019-06-03] MED LIST changes: +ACET1TAB55 PO; +ATIV1TAB7 PO; +BISA10SU PR; +DOCU100C16 PO; +FLEEENE12 PR; +MOM30SS2 PO; +OLAN10IN IM; +OLAN5ZYD PO; +ONDA4TAB6 PO; +RAME8TAB2 PO; +SCOP1PAT2 TOP
[2019-06-03 19:30] LABS: BASO % 0.4 % (0.0-1.0); EOS # 0.2 10^3/uL (0.0-0.5); HEMATOCRIT 34.1 % (42.0-52.0); HEMOGLOBIN 10.9 g/dl (13.5-17.5); LYMPH # 1.4 10^3/uL (1.5-5.0); LYMPH % 19.1 % (24.0-44.0); MEAN CORPUSCULAR HEMOGLOBIN 30.4 pg (27.0-33.0); MEAN CORPUSCULAR VOLUME 95.3 fl (80.0-96.0); MONO # 0.8 10^3/uL (0.0-0.8); NEUTROPHILS # 5.1 10^3/uL (1.5-8.5); NEUTROPHILS % 68.2 % (36.0-66.0); PLATELET COUNT, AUTOMATED 201 10^3/uL (150-450); RED BLOOD COUNT 3.58 10^6/uL (4.30-6.10); WHITE BLOOD COUNT 7.5 10^3/uL (4.0-10.0)
[2019-06-03 19:36] LABS: ALBUMIN 3.5 GM/DL (3.2-5.2); BILIRUBIN,TOTAL 0.7 MG/DL (0.2-1.0); CALCIUM LEVEL 8.9 MG/DL (8.8-10.2); CREATININE FOR GFR 4.3 MG/DL (0.70-1.30); GLOMERULAR FILTRATION RATE 14.2 (>35); POTASSIUM SERUM 4.5 MEQ/L (3.5-5.1)
== END ==
LOC: M SFHCADAM 16:26
PROVIDERS: ATTEND Physician Assistant Medical
DX: N18.4 Chronic kidney disease, stage 4 (severe) (principal); I11.9 Hypertensive heart disease without heart failure
CPT/HCPCS: 80053; 85025; G0463

== ENCOUNTER → 2019-06-04 | Outpatient (REF) | payer MEDICARE ==
[~2019-06-04] MED LIST changes: -ACET1TAB55 PO; -ATIV1TAB7 PO; -BISA10SU PR; -BISO5TAB14 PO; +BISO5TAB9 PO; -DOCU100C16 PO; -FLEEENE12 PR; -MOM30SS2 PO; -OLAN10IN IM; -OLAN5ZYD PO; -OMEP1CAP73 PO; +OMEP20CA4 PO; +OMEP40CA2 PO; -OMEP40CA97 PO; -ONDA4TAB6 PO; -RAME8TAB2 PO; -SCOP1PAT2 TOP
[2019-06-04 12:17] LABS: AMORPHOUS SEDIMENT SMALL (NEGATIVE); APPEARANCE, URINE TURBID (CLEAR); BACTERIA, URINE AUTO NEGATIVE (NEGATIVE); BILIRUBIN, URINE AUTO NEGATIVE (NEGATIVE); BLOOD, URINE BLOOD 1+ (NEGATIVE); COLOR, URINE YELLOW (YELLOW); GLUCOSE, URINE (UA) AUTO NEGATIVE (NEGATIVE); KETONE, URINE AUTO NEGATIVE (NEGATIVE); LEUKOCYTE ESTERASE, URINE AUTO 2+ (NEGATIVE); NITRITE, URINE AUTO NEGATIVE (NEGATIVE); PROTEIN, URINE AUTO 1+ mg/dL (NEGATIVE); RBC, URINE AUTO 41 /HPF (0-3); SPECIFIC GRAVITY URINE AUTO 1.008 (1.002-1.035); SQUAMOUS EPITHELIAL CELL UR AU 0 /HPF (0-6); UROBILINOGEN, URINE AUTO 0.2 mg/dL (0.0-2.0); WBC, URINE AUTO TNTC /HPF (0-3)
== END ==
LOC: M SFHCADAM 11:41
PROVIDERS: ATTEND Physician Assistant Medical
DX: N18.4 Chronic kidney disease, stage 4 (severe) (principal); Z79.899 Other long term (current) drug therapy

== ENCOUNTER 2019-07-17 20:32 | Inpatient (IN) | payer MEDICARE ==
[~2019-07-17] VITALS: Ht 177.8 cm; Wt 76.6 kg
[~2019-07-17 20:32] MED LIST changes: -OMEP40CA2 PO; +OMEP40CA97 PO
[2019-07-17] MEDS ORDERED: OLANZapine 2.5MG TABLET PO SCH (21:00)
[2019-07-17] MEDS: DOCUSATE SODIUM 100 MG CAP PO SCH (21:00)
[2019-07-17 21:18] LABS: BASO % 0.4 % (0.0-1.0); EOS # 0.2 10^3/uL (0.0-0.5); EOS % 3.2 % (0.0-3.0); HEMATOCRIT 33.8 % (42.0-52.0); HEMOGLOBIN 10.7 g/dl (13.5-17.5); LYMPH # 0.9 10^3/uL (1.5-5.0); LYMPH % 16.2 % (24.0-44.0); MEAN CORPUSCULAR HEMOGLOBIN 30.8 pg (27.0-33.0); MEAN CORPUSCULAR HGB CONC 31.7 g/dl (32.0-36.5); MEAN CORPUSCULAR VOLUME 97.4 fl (80.0-96.0); MONO # 0.6 10^3/uL (0.0-0.8); MONO % 12.1 % (0.0-5.0); NEUTROPHILS # 3.6 10^3/uL (1.5-8.5); NEUTROPHILS % 67.7 % (36.0-66.0); PLATELET COUNT, AUTOMATED 183 10^3/uL (150-450); RED BLOOD COUNT 3.47 10^6/uL (4.30-6.10); WHITE BLOOD COUNT 5.3 10^3/uL (4.0-10.0)
[2019-07-17 21:49] LABS: ALBUMIN 3.2 GM/DL (3.2-5.2); ALT/SGPT 18 U/L (12-78); BILIRUBIN,DIRECT < 0.1 MG/DL (0.0-0.2); BILIRUBIN,TOTAL 0.4 MG/DL (0.2-1.0); BLOOD UREA NITROGEN 62 MG/DL (7-18); CALCIUM LEVEL 8.6 MG/DL (8.8-10.2); CARBON DIOXIDE LEVEL 23 MEQ/L (21-32); CHLORIDE LEVEL 108 MEQ/L (98-107); CK-MB VALUE MASS 2.9 NG/ML (<3.6); CPK CREATINE PHOSPHOKINASE 90 U/L (39-308); CREATININE FOR GFR 5.24 MG/DL (0.70-1.30); GLOMERULAR FILTRATION RATE 11.3 (>35); GLUCOSE, FASTING 107 MG/DL (70-100); MB/CK RELATIVE INDEX 3.22 (< OR =4); POTASSIUM SERUM 4.5 MEQ/L (3.5-5.1); SODIUM LEVEL 141 MEQ/L (136-145); TOTAL PROTEIN 7.1 GM/DL (6.4-8.2); TROPONIN I < 0.02 NG/ML (< 0.10)
--- NOTE | 2019-07-17 22:09 | REPVR ---
PROCEDURE INFORMATION: Exam: CT Head Without Contrast Exam date and time: 07/17/2019 9:10 PM Clinical history: 79 years old, male; Injury or trauma; Fall; Initial encounter; Concussion / head injury; Altered mental status/memory loss; Confusion or disorientation; Additional info: AMS; Falls TECHNIQUE: Imaging protocol: Computed tomography of the head without contrast. Radiation optimization: All CT scans at this facility use at least one of these dose optimization techniques: automated exposure control; mA and/or kV adjustment per patient size (includes targeted exams where dose is matched to clinical indication); or iterative reconstruction. COMPARISON: CT Head without contrast 08/15/2018 11:35 AM FINDINGS: Brain: There is advanced cerebral atrophy. Changes of chronic white matter microvascular disease are present. No signs of a recent infarction or hemorrhage. Ventricles: There is mild ex vacuo ventricular enlargement without evidence of obstructive hydrocephalus. Bones/joints: Unremarkable. No acute fracture. Sinuses: Visualized sinuses are unremarkable. No fluid levels. Mastoid air cells: Visualized mastoid air cells are well aerated. Soft tissues: Unremarkable. IMPRESSION: Atrophy and chronic white matter changes. No acute intracranial abnormality. Electronically signed by: Selwyn Yun On 07/17/2019 22:08:59 PM
[2019-07-17] MEDS ORDERED: LIDOCAINE 2% 5ML JELLY UROJET TOP ONE (22:30)
[2019-07-17] MEDS ORDERED: cefTRIAXone SOD 1 GM in D5W MINI-BAG PLUS 50 ML IV ONE (23:00)
[2019-07-17] MEDS ORDERED: QUET5TAB PO (23:25)
[2019-07-17] MEDS ORDERED: RAME8TAB2 PO (23:25)
[2019-07-17] MEDS ORDERED: NS 1,000 ML IV SCH (23:45)
[2019-07-17] MEDS ORDERED: MOM 30ML SUSPENSION UDC PO PRN (23:45)
[2019-07-18] MEDS: DOCUSATE SODIUM 100 MG CAP PO SCH ×3 (00:06→13:20)
--- NOTE | 2019-07-18 00:13 | HPEPDOC ---
[facility] Medical History & Physical Date of Admission Jul 17, 2019 Date of Service: Jul 17, 2019 Attending Physician: GAURANG HOPE MD History and Physical CHIEF COMPLAINT: Falls and confusion HISTORY OF PRESENT ILLNESS: Patient is an 79-year-old man who was brought to the ED by EMS after his reported multiple falls and more combative behavior; the patient is confused and unable to contribute to the history. He recieved abx for possible UTI in the ED ROS: Limited due to patient's dementia, he did deny chest pain, and urinary frequency, he also denied falls PAST MEDICAL AND PAST SURGICAL HISTORY: Chronic kidney disease (CKD) stage IV / Atrophic right kidney / Complex left renal cyst Recurrent urinary tract infections (UTIs). Chronic Hypertension. Chronic Coronary artery disease / s/p PCI & stenting. History of bladder cancer s/p resection of a bladder tumor, cystoprostatectomy and bilateral lymph node dissection. Dementia. Hypothyroidism Dyslipidemia Chronic obstructive pulmonary disease (COPD). Esophageal stricture requiring periodic dilatation. Iron deficiency anemia. Chronic duodenitis / Gastritis. Neuropathy. Lumbar spinal stenosis s/p Laminectomies. s/p Appendectomy. s/p pacemaker. s/p Cataract extraction. s/p Right inguinal hernia repair. s/p Carpal tunnel surgery. SOCIAL HISTORY: According to chart review patient lives with his Catherine did state that his recently him ALLERGIES: Please see below. HOME MEDICATIONS: Please see below. PHYSICAL EXAMINATION: VITAL SIGNS: Temperature 96.7, pulse 91, respiratory rate 18, blood pressure 96/68 repeat 142/83, saturating 99% on room air. GENERAL: Pleasant, elderly gentleman resting comfortably in bed, does not appear to be agitated, is visibly confused, no sign of distress, answers questions somewhat appropriately CARDIAC: Heart sounds are regular. S1-S2. No murmurs LUNGS: CTAB ABDOMEN: Soft, non tender, bowel sounds present in all 4 quadrants NEUROLOGIC: Oriented to location, pleasant, able to answer questions somewhat appropriately, slightly agitated, not orientated to year or president, oriented to location, Believes his recently him. Not orientated to recent activities. SKIN: Right elbow bruising LABORATORY DATA: See below. IMAGING: Head CT: Atrophy and chronic white matter changes. No acute intracranial abnormality. Elbow X-Ray:No acute fractures Chest x-Ray: No acute cardiopulmonary disease MICROBIOLOGY: Please see below. ASSESSMENT/PLAN: This is a 79-year-old male with multiple severe medical conditions, significantly chronic kidney disease stage IV, CAD, hypertension, multiple urinary tract infections, dementia, presents today with multiple falls and acute on chronic kidney disease. 1.Acute kidney injury (DARNELL) on chronic kidney disease (CKD) stage IV - Reported baseline GFR of about 20 mL/min. -Hold nephrotoxins - Gentle IV fluid hydration -f/u ulytes for FeNa 2.Metabolic encephalopathy secondary to UTI -has hx of recurrent urinary tract infections (UTIs) -Prior cultures was positive for Serratia Marcescens sensitive to ceftriaxone -c/w IV ceftriaxone continue -follow up urine culture 3.Dementia with behavioral disturbance -He has been know to become violent and uncooperative -c/w home meds -One one one sister and olanzapine PRN for agitation 4.Chronic HTN -Continue home meds 5.Chronic CAD / Dyslipidemia -c/w home meds 7. COPD -c/w home meds 8. Hypothyroidism -c/w home meds DVT px w TEDS Disposition: may need placement Vital Signs Vital Signs Date Time Temp Pulse Resp B/P (MAP) Pulse Ox O2 Delivery O2 Flow Rate FiO2 07/17/19 22:45 54 135/60 (85) 98 07/17/19 21:01 18 Room Air 07/17/19 20:42 96.7 Laboratory Data Labs 24H Laboratory Tests 2 07/17/19 21:12: Immature Granulocyte % (Auto) 0.4, Neutrophils (%) (Auto) 67.7H, Lymphocytes (%) (Auto) 16.2L, Monocytes (%) (Auto) 12.1H, Eosinophils (%) (Auto) 3.2H, Basophils (%) (Auto) 0.4, Neutrophils # (Auto) 3.6, Lymphocytes # (Auto) 0.9L, Monocytes # (Auto) 0.6, Eosinophils # (Auto) 0.2, Basophils # (Auto) 0.0, Nucleated Red Blood Cells % (auto) 0.0, Anion Gap 10, Glomerular Filtration Rate 11.3L, Lactic Acid Level 1.2, Calcium Level 8.6L, Total Bilirubin 0.4, Direct Bilirubin < 0.1, Aspartate Amino Transf (AST/SGOT) 16, Alanine Aminotransferase (ALT/SGPT) 18, Alkaline Phosphatase 101, Ammonia < 10, Total Creatine Kinase 90, Creatine Kinase MB 2.9, Creatine Kinase MB Relative Index 3.22, Troponin I < 0.02, Total Protein 7.1, Albumin 3.2, Albumin/Globulin Ratio 0.82L, Thyroid Stimulating Hormone (TSH) 2.840 07/17/19 22:30: Urine Color YELLOW, Urine Appearance CLOUDYH, Urine pH 7.0, Urine Specific Gra vity 1.008, Urine Protein 1+H, Urine Glucose (UA) NEGATIVE, Urine Ketones NEGATIVE, Urine Blood 1+H, Urine Nitrite NEGATIVE, Urine Bilirubin NEGATIVE, Urine Urobilinogen 0.2, Urine Leukocyte Esterase 3+H, Urine WBC (Auto) TNTCH, Urine RBC (Auto) 19H, Urine Hyaline Casts (Auto) 0, Urine Bacteria (Auto) 2+H, Urine Squamous Epithelial Cells 0, Urine Sperm (Auto) CBC/BMP Laboratory Tests 07/17/19 21:12 Microbiology Microbiology 07/17/19 Urine Culture, Received Pending Home Medications Scheduled Bisoprolol/Hydrochlorothiazide (Ziac 2.5-6.25 mg Tablet) 1 Each Tablet, 1 TAB PO DAILY Bupropion Hcl (Bupropion Xl) 150 Mg Tab, 150 MG PO DAILY Calcitriol (Calcitriol) 0.25 Mcg Cap, 0.25 MG PO DAILY Clopidogrel Bisulfate (Clopidogrel) 75 Mg Tab, 75 MG PO DAILY Ferrous Gluconate (Ferrous Gluconate) 324 Mg Tab, 324 MG PO BID Gabapentin (Neurontin) 100 Mg Cap, 100 MG PO QHS Isosorbide Mononitrate (Isosorbide Mononitrate ER) 30 Mg Tab, 30 MG PO DAILY Lactobacillus Acidophilus (Probiotic) 1 Each Capsule, 1 CAP PO DAILY Levothyroxine Sodium (Synthroid) 25 Mcg Tab, 25 MCG PO DAILY Multivit-Min/Folic/Vit K/Lycop (Men's 50 Plus Multivitamin Tab) 1 Each Tablet, 1 TAB PO DAILY Omeprazole (Omeprazole) 40 Mg Cap, 40 MG PO BID Potassium Chloride (Potassium Chloride) 10 Meq Capsule.er, 10 MEQ PO BID Quetiapine Fumarate (Quetiapine Fumarate) 50 Mg Tablet, 50 MG PO QHS Sodium Bicarbonate (Sodium Bicarbonate) 650 Mg Tab, 1,300 MG PO BID Vit A/Vit C/Vit E/Zinc/Copper (Preservision Areds Tablet) 1 Tab Tab, 1 TAB PO DAILY Scheduled PRN Acetaminophen (Acetaminophen) 500 Mg Tab, 1,000 MG PO Q6H PRN for FEVER Diclofenac Sodium (Diclofenac Sodium) 1 % Gel, 1 APLCT TOP DAILY PRN for PAIN APPLIES TO LEFT ANKLE Ramelteon (Ramelteon) 8 Mg Tablet, 8 MG PO QHS PRN for SLEEP Allergies Coded Allergies: Contrast Media (Verified Allergy, Unknown, 03/02/18) Sulfa (Sulfonamide Antibiotics) (Verified Allergy, Unknown, 01/19/19) iodine (Verified Allergy, Unknown, 01/19/19) haloperidol (Verified Adverse Reaction, Intermediate, UNRESPONSIVE FOR 24 HOURS, 04/09/19) HAS RECEIVED RECENT DOSE WITHOUT CEMENT SACK BREAKER UNRESPONSIVENESS 04/09/19 TAPE (Verified Adverse Reaction, Mild, EKG PADS - skin irritation, 04/09/19) hydrocodone (Verified Adverse Reaction, Mild, "GOES INTO ORBIT", 04/09/19) morphine (Verified Adverse Reaction, Mild, "GOES INTO ORBIT", 04/09/19) GME ATTESTATION GME ATTESTATION My faculty preceptor for this patient encounter was physically present during the encounter and was fully available. All aspects of the patient interview, examination, medical decision making process, and medical care plan development were reviewed and approved by the faculty preceptor. The faculty preceptor is aware and concurs with the plan as stated in the body of this note and will attest to such by his/her cosignature. ATTENDING NOTE I evaluated the patient at 1120PM and discuseed the case with . RAJ WINCHESTER DO Jul 17, 2019 23:08 GAURANG HOPE MD Jul 18, 2019 06:57
[2019-07-18] MEDS ORDERED: OLANZapine INTRAMUSCULAR 10 MG VIAL (S0166) IM ONE (00:15)
[2019-07-18 02:00] VITALS: BP_SYST 173
[2019-07-18 06:00] VITALS: BP 128/83
[2019-07-18 06:53] LABS: ALBUMIN 2.9 GM/DL (3.2-5.2); BILIRUBIN,TOTAL 0.3 MG/DL (0.2-1.0); CALCIUM LEVEL 9.2 MG/DL (8.8-10.2); CREATININE FOR GFR 4.86 MG/DL (0.70-1.30); GLOMERULAR FILTRATION RATE 12.3 (>35); POTASSIUM SERUM 4.1 MEQ/L (3.5-5.1); TOTAL PROTEIN 7.6 GM/DL (6.4-8.2)
--- NOTE | 2019-07-18 10:37 | IPN ---
DATE: 07/18/2019 Avel is seen on Ch. He was admitted with acute renal failure on chronic kidney disease, possible urinary tract infection, metabolic encephalopathy with disruptive behavior. He has dementia which is becoming increasingly worse and his behavior is beyond the point for which his can safely care for him at home. He has stage IV approaching end stage chronic kidney disease, is followed by [facility]. He was last seen on 06/22/2019, has been referred to vascular surgery for vascular access. He is not suitable for an AV fistula. The patient is apparently agreeing to dialysis, though the and I are skeptical that he would tolerate a dialysis session. He has disruptive behavior. He had been referred to neurology in the past and walked out of the neurologists office when he became angry at them for asking him questions concerning his memory. I really do not know how he would be expected to tolerate a dialysis session. He has anemia from chronic kidney disease, history of gout, secondary hyperparathyroidism, coronary artery disease (CAD), for which he is followed by [facility]. He was last seen there 07/03/2019. They note his last nuclear stress test 10/2018 showed ejection fraction of 35%, which they think under presents his actual ejection fraction based on visual inspection of the images and normal perfusion. He has a pacemaker with a normal pacemaker check 01/2019. PHYSICAL EXAMINATION: He is seen on . He is alert and conversant. He knows he is in the hospital. He does not know the name of the hospital and he does not recognize me. He is more unkempt and gaunt than the last time I saw him. HEENT unremarkable. Lungs clear. Heart regular rhythm. Abdomen soft, nontender, no peripheral edema. LABS: No CBC ordered for today. Sodium is 138, potassium 4.1, BUN 58, creatinine 4.8, glucose 98. Urinalysis looked like infection, culture is pending. IMPRESSION: 1. Acute on chronic kidney disease. Would recommend consulting nephrology tomorrow. I am skeptical that he would tolerate a dialysis session with his behavioral problems with dementia. He might be more appropriate for a palliative care approach. I would be interested in nephrology's input on that approach. I have taken care of Avel for over 20 years and have a good relationship with his Catherine and we could discuss this further going forward. 2. Question of UTI. Continue his Rocephin until we get culture results back. He had serratia in May. The only oral antibiotic that looks appropriate is quinolone, which I would avoid with his dementia. 3. Anemia from chronic kidney disease. Repeat CBC has been ordered. 4. Coronary artery disease. He is stable from a coronary artery disease perspective. 5. Dementia with behavioral disturbance. I think he is well past being able to be cared for at home. I am not sure whether Catherine is ready for placement, but I think it is in his best interest if they did this. I am restarting his outpatient medications which were not continued when he was admitted, including: - Plavix 75 mg daily - Neurontin 100 mg at bedtime - Imdur 30 mg daily - levothyroxine 25 mcg daily - Seroquel 50 mg at bedtime - Rozerem 8 mg at bedtime - sodium bicarb 650 mg twice a day - beta-nelia bisoprolol which was not restarted on admission either ADDENDUM: Apparently when Avel was admitted, the admitting resident indicated that he is was "full code." That is not the case. He has DO NOT RESUSCITATE paperwork which is actually scanned into [employer] and readily available from 03/2019. The patient is DO NOT RESUSCITATE, DO NOT INTUBATE, no tube feeding. Unfortunately, there does not appear to be a way to change that code status in [employer] currently. I talked to the nursing millwright supervisor abut this and she will see what she can do about it. I did change he order from full code to DNR, but that still does not change full code heading that is now showing on his chart. Edited 07/18/2019 @ 1041 [facility]
--- NOTE | 2019-07-18 10:38 | REP ---
LEFT ELBOW, FOUR VIEWS: There is no evidence of an acute fracture, dislocation or intrinsic bone disease. There is a tiny metallic foreign body 2 mm in diameter in the anterior subcutaneous soft tissues of the distal upper arm at the level of the distal humerus. IMPRESSION: No fracture or dislocation. Electronically Signed by Paul Perry MD 07/18/2019 12:34 P
--- NOTE | 2019-07-18 11:12 | REP ---
CHEST, SINGLE VIEW: Single view of the chest is performed and compared to prior study of 04/30/2019. There is no evidence of acute infiltrate or pulmonary edema. There is mild left ventricular prominence, unchanged. There is calcification of the thoracic aorta. The mediastinal silhouette is unchanged. Right pacemaker is again noted with a broken lead seen as well as intact leads, unchanged. IMPRESSION: No acute infiltrate. Electronically Signed by Paul Perry MD 07/18/2019 12:34 P
[2019-07-18] MEDS: SODIUM BICARBONATE 325 MG TAB PO SCH ×3 (13:18→21:41)
[2019-07-18] MEDS: OCUVITE 1 TAB PO SCH (13:19)
[2019-07-18] MEDS: ACETAMINOPHEN TAB 650MG DOSE (2X325MG) PO PRN (13:19)
[2019-07-18] MEDS: BISOPROLOL FUM 2.5 MG PER 1/2TAB PO SCH (13:19)
[2019-07-18] MEDS: CLOPIDOGREL 75 MG TAB PO SCH (13:20)
[2019-07-18] MEDS: CALCITRIOL 0.25 MCG CAP (S0169) PO SCH (13:20)
[2019-07-18] MEDS: buPROPion **XL** TABLET 150MG (WELLBUTRIN XL) PO SCH (13:20)
[2019-07-18] MEDS: OMEPRAZOLE 20 MG CAP PO SCH ×3 (13:20→21:41)
[2019-07-18] MEDS: LEVOTHYROXINE 25MCG TABLET (0.025MG) PO SCH (13:20)
[2019-07-18] MEDS: ISOSORBIDE MON. (IMDUR) 30 MG XR TAB PO SCH (13:21)
[2019-07-18] MEDS: FERROUS GLUCONATE 324 MG TAB PO SCH ×3 (13:21→21:41)
[2019-07-18 14:00] VITALS: BP 125/82
[2019-07-18] MEDS: OLANZapine INTRAMUSCULAR 10 MG VIAL (S0166) IM PRN (20:36)
[2019-07-18] MEDS: QUEtiapine FUMARATE 50 MG TAB PO SCH ×2 (21:00→21:40)
[2019-07-18] MEDS: GABAPENTIN 100 MG CAP PO SCH ×2 (21:00→21:40)
[2019-07-18] MEDS ORDERED: cefTRIAXone SOD 1 GM in D5W MINI-BAG PLUS 50 ML IV SCH (21:00)
[2019-07-18] MEDS: RAMELTEON 8 MG TAB (ROZEREM) PO PRN (21:40)
[2019-07-19] MEDS: QUEtiapine FUMARATE 50 MG TAB PO SCH ×2 (00:20→21:49)
[2019-07-19 05:21] VITALS: BP 109/75
[2019-07-19] MEDS: LEVOTHYROXINE 25MCG TABLET (0.025MG) PO SCH (06:24)
[2019-07-19] MEDS: DOCUSATE SODIUM 100 MG CAP PO SCH ×3 (08:06→21:00)
[2019-07-19] MEDS: CLOPIDOGREL 75 MG TAB PO SCH ×2 (08:07→09:00)
[2019-07-19] MEDS: ISOSORBIDE MON. (IMDUR) 30 MG XR TAB PO SCH ×2 (08:07→09:00)
[2019-07-19] MEDS: BISOPROLOL FUM 2.5 MG PER 1/2TAB PO SCH ×2 (08:07→09:00)
[2019-07-19] MEDS: FERROUS GLUCONATE 324 MG TAB PO SCH ×3 (08:07→21:00)
[2019-07-19] MEDS: OMEPRAZOLE 20 MG CAP PO SCH ×3 (08:07→21:00)
[2019-07-19] MEDS: OCUVITE 1 TAB PO SCH ×2 (08:07→09:00)
[2019-07-19] MEDS: CALCITRIOL 0.25 MCG CAP (S0169) PO SCH ×2 (08:08→09:00)
[2019-07-19] MEDS: SODIUM BICARBONATE 325 MG TAB PO SCH ×3 (08:08→21:49)
[2019-07-19] MEDS: buPROPion **XL** TABLET 150MG (WELLBUTRIN XL) PO SCH ×3 (08:08→10:07)
[2019-07-19] MEDS: ACETAMINOPHEN TAB 650MG DOSE (2X325MG) PO PRN ×2 (08:09→21:49)
[2019-07-19] MEDS: OLANZapine INTRAMUSCULAR 10 MG VIAL (S0166) IM PRN ×2 (08:21→19:49)
--- NOTE | 2019-07-19 10:13 | IPNPDOC ---
Subjective Date Seen The patient was seen on 07/19/19. Subjective Chief Complaint/HPI falls Events since last encounter required 2 doses of Olanzapine overnight for aggressive behaviors. Patient unintelligible when I entered the room. General: Reports: ROS Unobtainable Objective Physical Examination General Exam: Positive: No Acute Distress, Other (mumbling unintelligible words) Chest Exam: Positive: Clear to auscultation Heart Exam: Positive: Rate Normal, Regular Rhythm, Normal S1, Normal S2 Abdomen Exam: Positive: Normal bowel sounds, Soft; Negative: Tenderness Extremity Exam: Negative: Edema Psych Exam: Negative: Memory Intact Assessment /Plan Problems (1) Dementia with behavioral disturbance Status: Acute Problem Text: Olanzapine prn agitation. PFS to work on disposition. (2) CKD (chronic kidney disease), stage IV Status: Chronic Response to Treatment: Stable (3) UTI (urinary tract infection) Status: Acute Problem Text: Cx pending. treatment based on prior cx.: Ceftriaxone (4) Multiple falls Status: Acute Plan/VTE VTE Prophylaxis Ordered?: No (fall risk. on Plavix) VS, I&O, 24H, Fishbone Vital Signs/I&O Vital Signs Date Time Temp Pulse Resp B/P (MAP) Pulse Ox O2 Delivery O2 Flow Rate FiO2 07/19/19 09:00 83 109/75 07/19/19 05:21 95.9 20 97 Room Air I&O- Last 24 Hours up to 6 AM 07/19/19 06:00 Intake Total 990 ml Output Total 1400 ml Balance -410 ml Laboratory Data Microbiology Microbiology 07/18/19 Blood Culture - Preliminary, Resulted No growth after 24 hours . All specim... 07/17/19 Urine Culture, Received Pending Olive Alejandre PRETZEL COOKER Jul 19, 2019 10:13
[2019-07-19] MEDS ORDERED: NS 1,000 ML IV SCH (10:45)
--- NOTE | 2019-07-19 19:19 | REP ---
Clinical: Acute renal failure. Technique: Real time kaiser scale ultrasound examination using curved array transducer. Findings: The bilateral kidneys are hyperechoic consistent with chronic medical renal disease. The right kidney appears atrophic and measures 6.9 x 3.3 x 3.3 cm with mild hydronephrosis as well as 1.5 cm upper pole cyst and 1 cm mid pole fifth. The left kidney measures 9.8 x 4.3 x 4.9 cm with mild hydronephrosis as well as 1.1 cm upper pole exophytic cyst and 2.6 cm mid pole cyst. Bladder demonstrates nonspecific debris. Impression: 1. Chronic medical renal disease with a mild bilateral hydronephrosis and small bilateral cysts. Electronically Signed by Lico Willingham MD 07/19/2019 07:11 P
--- NOTE | 2019-07-19 19:47 | ECGEPIP ---
[facility] - ED Test Date: 2019-07-17 Pat Name: BILL ROSE Department: Room: [place] [address] Gender: Male Tester Equipment: [place]ENT[place] : 1940 Requested By: MARÍA ATWOOD Order Number: [id number] Reading MD: Jb Umaña Measurements Intervals [place] Rate: 54 P: 85 AR: 190 QRS: 3 QRSD: 109 T: 55 QT: 429 QTc: 410 Interpretive Statements ELECTRONIC ATRIAL PACEMAKER INCOMPLETE RIGHT BUNDLE BRANCH BLOCK MODERATE VOLTAGE CRITERIA FOR LVH, CONSIDER NORMAL VARIANT INFERIOR MYOCARDIAL INFARCTION, OF INDETERMINATE AGE NONSPECIFIC ST T WAVE CHANGES CW 04/30/[address] T WAVE CHANGES Electronically Signed on 07-19-2019 19:46:49 EDT by Jb Umaña
--- NOTE | 2019-07-19 20:10 | CR ---
DATE OF CONSULTATION: 07/19/2019 REASON FOR CONSULTATION: Renal failure and altered mentation. HISTORY OF PRESENT ILLNESS: Mr. Raman is very well-known to me from prior hospitalizations and office followup. He is an 79-year-old gentleman with multiple chronic medical problems including advanced chronic kidney disease, congestive heart failure, hypertension, coronary artery disease with prior angioplasty and stent, history of hypothyroidism and dementia. Over last several months, he has gradual deterioration in his mental status and has become more confused and disoriented at times. He had frequent falls at home due to which he was brought to the emergency room and got admitted a couple of days ago. He was noticed to have advanced renal failure and a nephrology consultation was requested this morning. The patient is seen in his room. He has a sitter and nursing staff reports that the patient has been medicated due to agitation. PAST MEDICAL AND SURGICAL HISTORY SIGNIFICANT FOR: 1. Longstanding hypertension. 2. Stage IV to stage V of chronic kidney disease. 3. History of bladder cancer, status post radical cystectomy and neobladder creation. 4. History of hypothyroidism. 5. History of coronary artery disease with prior angioplasty and stent placement. 6. History of diastolic congestive heart failure. 7. History of anemia. 8. History of esophageal stricture requiring periodic dilatation. 9. History of spinal stenosis status post laminectomy. 10. Dyslipidemia. 11. Progressive dementia. 12. History of hypothyroidism. Past surgical history is significant for lumbar spine laminectomy, appendectomy, pacemaker placement, cataract extraction, right inguinal hernia repair, carpal tunnel surgery and radical cystectomy and neobladder creation. PERSONAL AND SOCIAL HISTORY: The patient is and lives with his . He has gradually become more dependent on his for care. There is no history of smoking, alcohol or drug use. FAMILY HISTORY: Negative for end-stage renal disease. MEDICATIONS: His home medications include Ziac 2.5 /6.25 mg daily, bupropion XL 150 mg daily, calcitriol 0.25 mcg daily, Plavix 75 mg daily, ferrous gluconate 324 mg twice a day, gabapentin 100 mg at bedtime, Imdur 30 mg daily, levothyroxine 25 mcg daily, multivitamin one tablet daily, omeprazole 40 mg twice a day, potassium chloride 10 mEq twice a day, Seroquel 50 mg at bedtime, sodium bicarbonate 650 mg 2 tablets twice a day, Tylenol as needed for pain and ramelteon 8 mg as needed for sleep at bedtime. ALLERGIES: The patient has allergy to SULFA, IODINE, HALOPERIDOL and CONTRAST MEDIA. REVIEW OF SYSTEMS: At present, the patient is not able to provide much information. He is sitting in the chair and he is awake and able to answer simple questions by saying yes or no. He has not talking much today. He is not able to provide any meaningful information. PHYSICAL EXAMINATION: Temperature 95.9 degrees Fahrenheit,, heart rate 82 per minute and respiratory rate 20 per minute. Blood pressure 109/75 mmHg and oxygen saturation 97% on room air. His head is atraumatic. Neck veins are not abnormally distended sitting upright. Oral mucosa somewhat dry. Ears, nose and throat are unremarkable. Neck is supple and jugular venous distension (JVD) is not elevated. Heart sounds are regular and without a pericardial friction rub. Lungs sound clear to auscultation bilaterally. Abdomen is soft and nontender and there is no palpable organomegaly. Bowel sounds are normal. Extremities have no cyanosis or clubbing. Neurologically, he is awake and does not seem to have any focal deficit. but not able to cooperate for a full neurological exam. He is talking only couple of words at a time and does not want to have a conversation. LABORATORY DATA: On July 17, white blood count (WBC) was 5.3, hemoglobin 10.7 and hematocrit 33.8. Platelets 183. BUN was 62 and creatinine 5.24. Sodium 141 and potassium 4.5. Yesterday, his BUN was 58 and creatinine 4.86. There are no labs done today. A urinalysis did show too numerous to count WBCs and 19 RBCs with 2+ bacteria and positive leukocyte esterase. PROBLEMS: 1. Acute renal failure superimposed on chronic kidney disease. The patient could be dehydrated as his oral intake is low due to altered mentation. His kidney function is certainly worse than his prior baseline, but not any significant. We will give him 1 liter of normal saline and also encourage oral intake. Repeat renal profile will be checked tomorrow morning. 2. Urinary tract infection (UTI). The patient may have altered mentation related to dementia and UTI. He has already being treated with ceftriaxone which is appropriate. 3. Hypertension. Blood pressure is somewhat low. Will need to monitor closely and adjust his medications as needed. 4. Metabolic acidosis. This is a chronic issue and he has been on sodium bicarbonate supplement. Nursing staff reports that he has been refusing medicines today. We will check his renal profile again tomorrow morning. 5. Anemia. His anemia is moderate and no urgent intervention indicated at present. 6. Altered mentation. Most likely this is related to his worsening dementia and does not seem to be overtly uremic at this point. Medications should be used with caution due to advanced renal failure. Thank you for involving me in the care of Mr. Raman. I will follow him along with you.
[2019-07-19] MEDS: GABAPENTIN 100 MG CAP PO SCH (21:49)
[2019-07-19] MEDS: RAMELTEON 8 MG TAB (ROZEREM) PO PRN (21:49)
[2019-07-19 22:00] VITALS: BP 131/94
[2019-07-19] MEDS: cefTRIAXone SOD 1 GM VIAL (J0696) IM SCH (22:24)
[2019-07-20] MEDS: LEVOTHYROXINE 25MCG TABLET (0.025MG) PO SCH (06:00)
[2019-07-20 06:48] LABS: HEMATOCRIT 36.1 % (42.0-52.0); HEMOGLOBIN 11.1 g/dl (13.5-17.5); MEAN CORPUSCULAR HEMOGLOBIN 29.6 pg (27.0-33.0); MEAN CORPUSCULAR HGB CONC 30.7 g/dl (32.0-36.5); MEAN CORPUSCULAR VOLUME 96.3 fl (80.0-96.0); PLATELET COUNT, AUTOMATED 175 10^3/uL (150-450); RED BLOOD COUNT 3.75 10^6/uL (4.30-6.10); WHITE BLOOD COUNT 4.1 10^3/uL (4.0-10.0)
[2019-07-20 07:22] LABS: ALBUMIN 2.9 GM/DL (3.2-5.2); CALCIUM LEVEL 9.2 MG/DL (8.8-10.2); CREATININE FOR GFR 5.06 MG/DL (0.70-1.30); GLOMERULAR FILTRATION RATE 11.8 (>35); PHOSPHORUS LEVEL 4.5 MG/DL (2.5-4.9); POTASSIUM SERUM 4.2 MEQ/L (3.5-5.1)
--- NOTE | 2019-07-20 08:00 | IPNPDOC ---
Subjective Date Seen The patient was seen on 07/20/19. Subjective Chief Complaint/HPI falls Events since last encounter per sitter: sleepy, refusing breakfast. s/p nephro consult, see note for further information. General: Reports: ROS Unobtainable Objective Physical Examination General Exam: Positive: No Acute Distress, Other (refuses to speak or wake for exam) Chest Exam: Positive: Clear to auscultation Heart Exam: Positive: Rate Normal, Regular Rhythm, Normal S1, Normal S2 Abdomen Exam: Positive: Normal bowel sounds, Soft; Negative: Tenderness Extremity Exam: Negative: Edema Psych Exam: Negative: Memory Intact Assessment /Plan Problems (1) Dementia with behavioral disturbance Status: Acute Problem Text: 07/20/19: patient's who is caregiver, has had a emergent illness and is incapacitated. Son coming from [place]. Will work on disposition with son. Nursing aware Olanzapine prn agitation. PFS to work on disposition. (2) CKD (chronic kidney disease), stage IV Status: Chronic Response to Treatment: Stable (3) UTI (urinary tract infection) Status: Acute Problem Text: 07/20/19: + for serratia: continue with Ceftriaxone Cx pending. treatment based on prior cx.: Ceftriaxone (4) Multiple falls Status: Acute Plan/VTE VTE Prophylaxis Ordered?: No (fall risk. on Plavix) VS, I&O, 24H, Fishbone Vital Signs/I&O Vital Signs Date Time Temp Pulse Resp B/P (MAP) Pulse Ox O2 Delivery O2 Flow Rate FiO2 07/19/19 22:00 131/94 (106) 07/19/19 09:00 83 07/19/19 05:21 95.9 20 97 Room Air I&O- Last 24 Hours up to 6 AM 07/20/19 06:00 Intake Total 50 ml Output Total 1850 ml Balance -1800 ml Laboratory Data 24H LABS Laboratory Tests 2 07/20/19 06:28: Nucleated Red Blood Cells % (auto) 0.0, Anion Gap 7L, Glomerular Filtration Rate 11.8L, Calcium Level 9.2, Phosphorus Level 4.5, Albumin 2.9L CBC/BMP Laboratory Tests 07/20/19 06:28 Microbiology Microbiology 07/18/19 Blood Culture - Preliminary, Resulted No Growth after 48 hours. All Specime... 07/17/19 Urine Culture - Final, Complete Serratia Marcescens Olive Alejandre PIN ATTACHER Jul 20, 2019 08:00
[2019-07-20] MEDS: ISOSORBIDE MON. (IMDUR) 30 MG XR TAB PO SCH (09:00)
[2019-07-20] MEDS: BISOPROLOL FUM 2.5 MG PER 1/2TAB PO SCH (09:00)
[2019-07-20 10:15] VITALS: BP 100/64
[2019-07-20] MEDS: CALCITRIOL 0.25 MCG CAP (S0169) PO SCH (10:23)
[2019-07-20] MEDS: FERROUS GLUCONATE 324 MG TAB PO SCH ×3 (10:24→22:12)
[2019-07-20] MEDS: CLOPIDOGREL 75 MG TAB PO SCH (10:24)
[2019-07-20] MEDS: OCUVITE 1 TAB PO SCH (10:24)
[2019-07-20] MEDS: buPROPion **XL** TABLET 150MG (WELLBUTRIN XL) PO SCH (10:24)
[2019-07-20] MEDS: OMEPRAZOLE 20 MG CAP PO SCH ×3 (10:24→22:12)
[2019-07-20] MEDS: DOCUSATE SODIUM 100 MG CAP PO SCH ×3 (10:24→22:13)
[2019-07-20] MEDS: SODIUM BICARBONATE 325 MG TAB PO SCH ×3 (10:25→22:12)
--- NOTE | 2019-07-20 12:04 | IPN ---
DATE: 07/20/2019 Mr. Raman is seen this morning on his bedside. He is lying in the bed today with eyes closed. He did answer to verbal command. He could not tell me where he was and he could not tell me his date of . Nursing staff reports that he was unable to void and has been requiring intermittent catheterization. He was given 1 liter of normal saline intravenous yesterday but he is also eating and drinking reasonably well. No vomiting or diarrhea reported. The patient is comfortable lying in the bed and there is no dyspnea or leg edema noted. PHYSICAL EXAMINATION: Temperature 95.9 degrees Fahrenheit, heart rate 82 per minute and respiratory rate 20 per minute. Blood pressure 109/75 mmHg and oxygen saturation 97% on room air. Head is atraumatic. Neck is supple and without JVD or thyroid enlargement. There is no oral thrush or ulcers. His heart sounds are regular and lungs sound clear to auscultation. Abdomen soft and nontender and bowel sounds are normal. Extremities have no cyanosis or clubbing. Skin has no rash or ulcers. Neurologically he is awake and able to answer questions only with one or two words. He is not oriented and not able to even tell me where he was. He could not even tell me his date of today. Today's labs show WBC count 4.1, hemoglobin 11.1 and hematocrit 36.1. Sodium 146, potassium 4.2, CO2 24, BUN 59 and creatinine 5.06. PROBLEMS: 1. Acute renal failure superimposed on chronic kidney disease. No significant change in kidney function and BUN and creatinine are essentially the same for last couple of days. We will give him another 24 hours of IV fluid with normal saline at 100 per hour and recheck his renal profile tomorrow. We will also continue with intermittent catheterization every 4 hours to prevent any urinary retention. 2. Altered mentation. Probably this is multifactorial and uremia could be a factor. If his kidney function does not improve in the next 24 hours then dialysis will be considered. 3. Anemia. At present his anemia is stable and does not need any urgent intervention. 4. Metabolic acidosis. His acidosis has improved and we will continue with oral sodium bicarbonate supplement. 5. Hyperparathyroidism. He has been on chronically calcitriol 0.25 mcg daily which will be continued. 6. Urinary tract infection. 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 He is currently being treated with ceftriaxone which is appropriate. Urine culture did come back positive for serratia, which is sensitive to ceftriaxone.
[2019-07-20] MEDS: NS 1,000 ML IV SCH (12:18)
[2019-07-20 14:00] VITALS: BP 107/57
[2019-07-20] MEDS: QUEtiapine FUMARATE 50 MG TAB PO SCH ×2 (21:00→22:13)
[2019-07-20] MEDS: GABAPENTIN 100 MG CAP PO SCH ×2 (21:00→22:12)
[2019-07-20 22:00] VITALS: BP 113/72
[2019-07-20] MEDS: cefTRIAXone SOD 1 GM VIAL (J0696) IM SCH (22:13)
[2019-07-21] MEDS: NS 1,000 ML IV SCH ×2 (01:28→14:44)
[2019-07-21] MEDS: LEVOTHYROXINE 25MCG TABLET (0.025MG) PO SCH (06:00)
[2019-07-21] MEDS: OLANZapine INTRAMUSCULAR 10 MG VIAL (S0166) IM PRN (06:38)
[2019-07-21 08:57] LABS: ALBUMIN 2.6 GM/DL (3.2-5.2); CALCIUM LEVEL 8.7 MG/DL (8.8-10.2); CREATININE FOR GFR 4.13 MG/DL (0.70-1.30); GLOMERULAR FILTRATION RATE 14.9 (>35); PHOSPHORUS LEVEL 3.2 MG/DL (2.5-4.9); POTASSIUM SERUM 4.6 MEQ/L (3.5-5.1)
[2019-07-21] MEDS: BISOPROLOL FUM 2.5 MG PER 1/2TAB PO SCH (09:00)
[2019-07-21] MEDS: ISOSORBIDE MON. (IMDUR) 30 MG XR TAB PO SCH (09:00)
[2019-07-21 09:06] LABS: HEMATOCRIT 34.3 % (42.0-52.0); HEMOGLOBIN 10.8 g/dl (13.5-17.5); MEAN CORPUSCULAR HEMOGLOBIN 30.5 pg (27.0-33.0); MEAN CORPUSCULAR HGB CONC 31.5 g/dl (32.0-36.5); MEAN CORPUSCULAR VOLUME 96.9 fl (80.0-96.0); PLATELET COUNT, AUTOMATED 175 10^3/uL (150-450); RED BLOOD COUNT 3.54 10^6/uL (4.30-6.10); WHITE BLOOD COUNT 3.5 10^3/uL (4.0-10.0)
--- NOTE | 2019-07-21 09:36 | IPNPDOC ---
Subjective Date Seen The patient was seen on 07/21/19. Subjective Chief Complaint/HPI AMS, UTI Events since last encounter Patient was sedated for a few days after multiple doses of prn Olanzapine. Poor po intake noted. Given IVF with improvement in renal function. Constitutional: Denies: Chills, Fever, Night Sweats Pulmonary: Denies: Dyspnea, Cough, Pleuritic Chest Pain, Other Symptoms Cardiovascular: Denies: Chest Pain, Palpitations, Orthopnea, Paroxysmal Noc. Dyspnea, Lt Headedness Gastrointestinal: Denies: Nausea, Vomiting, Abdominal Pain, Diarrhea, Constipation Objective Physical Examination General Exam: Positive: Cooperative, No Acute Distress, Other (refuses to speak or wake for exam) Chest Exam: Positive: Clear to auscultation Heart Exam: Positive: Rate Normal, Regular Rhythm, Normal S1, Normal S2 Abdomen Exam: Positive: Normal bowel sounds, Soft; Negative: Tenderness Extremity Exam: Negative: Edema Psych Exam: Negative: Memory Intact Assessment /Plan Problems (1) Dementia with behavioral disturbance Status: Acute Problem Text: 07/21/2019: pleasant behavior today. Decreased dosing in Seroquel and stopped rozerem and olanzapine prn to reduce risk of sedative effect causing poor po intake. 07/20/19: patient's who is caregiver, has had a emergent illness and is incapacitated. Son coming from [place]. Will work on disposition with son. Pedro fine aware Olanzapine prn agitation. PFS to work on disposition. (2) CKD (chronic kidney disease), stage IV Status: Chronic Response to Treatment: Stable Problem Specific Plan: Consult Specialist (3) UTI (urinary tract infection) Status: Acute Problem Text: 07/21/2019: Ceftriaxone day #3 07/20/19: + for serratia: continue with Ceftriaxone Cx pending. treatment based on prior cx.: Ceftriaxone (4) Multiple falls Status: Acute Plan/VTE VTE Prophylaxis Ordered?: No (fall risk. on Plavix) VS, I&O, 24H, Fishbone Vital Signs/I&O Vital Signs Date Time Temp Pulse Resp B/P (MAP) Pulse Ox O2 Delivery O2 Flow Rate FiO2 07/20/19 22:00 97.0 64 18 113/72 (86) 98 Room Air I&O- Last 24 Hours up to 6 AM 07/21/19 06:00 Intake Total 2020 ml Output Total 1650 ml Balance 370 ml Laboratory Data 24H LABS Laboratory Tests 2 07/21/19 08:29: Anion Gap 7L, Glomerular Filtration Rate 14.9L, Calcium Level 8.7L, Phosphorus Level 3.2#, Albumin 2.6L 07/21/19 08:53: Nucleated Red Blood Cells % (auto) 0.0 CBC/BMP Laboratory Tests 07/21/19 08:29 07/21/19 08:53 Microbiology Microbiology 07/18/19 Blood Culture - Preliminary, Resulted No Growth after 72 hours. All specime... 07/17/19 Urine Culture - Final, Complete Serratia Marcescens Olive Alejandre MEDICAL RECORD LIBRARIAN Jul 21, 2019 09:36
[2019-07-21] MEDS: OCUVITE 1 TAB PO SCH (10:06)
[2019-07-21] MEDS: SODIUM BICARBONATE 325 MG TAB PO SCH ×3 (10:06→21:36)
[2019-07-21] MEDS: CLOPIDOGREL 75 MG TAB PO SCH (10:06)
[2019-07-21] MEDS: FERROUS GLUCONATE 324 MG TAB PO SCH ×3 (10:06→21:37)
[2019-07-21] MEDS: CALCITRIOL 0.25 MCG CAP (S0169) PO SCH (10:07)
[2019-07-21] MEDS: buPROPion **XL** TABLET 150MG (WELLBUTRIN XL) PO SCH (10:07)
[2019-07-21] MEDS: DOCUSATE SODIUM 100 MG CAP PO SCH ×3 (10:07→21:37)
[2019-07-21] MEDS: OMEPRAZOLE 20 MG CAP PO SCH ×3 (10:07→21:36)
--- NOTE | 2019-07-21 13:08 | IPN ---
DATE OF VISIT: 07/21/2019 Mr. Raman is seen this morning on his bedside. He is laying in the bed with eyes closed, however was able to answer simple questions. He could not answer most of the questions correctly, however was able to talk. He kept thanking me repeatedly. Nursing staff reports no vomiting or diarrhea. He has urinary retention and has required straight cath frequently. Yesterday, we started further IV fluid due to possible dehydration caused by decreased oral intake. He does not have any peripheral edema or dyspnea. On physical exam, temperature 97 degrees Fahrenheit, heart rate 64 per minute and respiratory rate 18 per minute. Blood pressure 113/72 mmHg and oxygen saturation 98% on room air. Head is atraumatic. Neck is supple and without jugular venous distention (JVD) or thyroid enlargement. There is no oral thrush or ulcers. Heart sounds are regular and lungs clear to auscultation. Abdomen soft and nontender, and bowel sounds normal. Extremities without any cyanosis or clubbing. Skin is without any rash or ulcers. Neurologically, he remains quite confused and disoriented. Today's labs show WBC count 3.5, hemoglobin 10.8 and hematocrit 34.3. Sodium is 144, potassium 4.6, CO2 19, BUN 53 and creatinine 4.13. Glucose 81 and calcium 8.7. Phosphorus is 3.2 and albumin 2.6. PROBLEMS: 1. Acute renal failure superimposed on chronic kidney disease partly related to dehydration and partly could be from obstruction. At present, his kidney function seems to have some improvement with IV fluid and frequent intermittent catheterization. We will continue the same for next 24 hours. I do not feel that emergent dialysis is indicated. Given his declining mental status, I am not 100% sure if dialysis will be the best option for him. I have discussed with the patient and his just within last month when he was still able to have a normal conversation and he did have consented for dialysis at that point. I have also explained his more recently and she has also consented. Yesterday his son visited here and I discussed with him on the phone and he also consented for dialysis if indicated. His son has also signed the consent for dialysis catheter placement. 2. Metabolic acidosis. Patient remains on oral sodium bicarbonate, which will be continued and his acidosis is stable for now. 3. Anemia. Stable at baseline and no urgent intervention is needed. 4. Altered mentation. Probably multifactorial, however medications are most likely playing a major role. I have discussed with the primary care team about possibly cutting down his medications. The patient was quite agitated and combative on admission due to which he required quite a few doses of sedation. 5. Urinary retention. Patient is getting frequent intermittent catheterization as needed.
[2019-07-21] MEDS ORDERED: OLANZapine ORAL DISINTEGRATING TAB 5MG PO ONE (15:00)
[2019-07-21 20:00] VITALS: BP 130/90
[2019-07-21] MEDS: GABAPENTIN 100 MG CAP PO SCH ×2 (21:00→21:36)
[2019-07-21] MEDS: QUEtiapine FUMARATE 50 MG TAB PO SCH ×2 (21:00→21:37)
[2019-07-21] MEDS: cefTRIAXone SOD 1 GM VIAL (J0696) IM SCH (21:36)
[2019-07-21] MEDS: ACETAMINOPHEN TAB 650MG DOSE (2X325MG) PO PRN (21:37)
[2019-07-22 00:35] VITALS: BP 163/64
[2019-07-22] MEDS: NS 1,000 ML IV SCH ×2 (01:16→17:20)
[2019-07-22] MEDS ORDERED: OLANZapine INTRAMUSCULAR 10 MG VIAL (S0166) IM ONE (02:53)
[2019-07-22] MEDS: LEVOTHYROXINE 25MCG TABLET (0.025MG) PO SCH (06:00)
[2019-07-22 06:15] VITALS: BP 163/64
--- NOTE | 2019-07-22 07:48 | IPNPDOC ---
Subjective Date Seen The patient was seen on 07/22/19. Subjective Chief Complaint/HPI AMS Events since last encounter Patient had several episodes of aggression requiring IM Olanzapine x 2 doses. He is repeatedly refusing medications. General: Reports: ROS Unobtainable Objective Physical Examination General Exam: Positive: Cooperative, No Acute Distress, Other (refuses to speak or wake for exam) Chest Exam: Positive: Clear to auscultation Heart Exam: Positive: Rate Normal, Regular Rhythm, Normal S1, Normal S2 Abdomen Exam: Positive: Normal bowel sounds, Soft; Negative: Tenderness Extremity Exam: Negative: Edema Psych Exam: Negative: Memory Intact Assessment /Plan Problems (1) Dementia with behavioral disturbance Status: Acute Problem Text: 07/22/19: Will increase po Olanzapine scheduled dosing. Increase pm Seroquel to assist with behaviors. 07/21/2019: pleasant behavior today. Decreased dosing in Seroquel and stopped rozerem and olanzapine prn to reduce risk of sedative effect causing poor po intake. 07/20/19: patient's who is caregiver, has had a emergent illness and is incapacitated. Son coming from [place]. Will work on disposition with son. Nursing aware Olanzapine prn agitation. PFS to work on disposition. (2) CKD (chronic kidney disease), stage IV Status: Chronic Response to Treatment: Stable Problem Specific Plan: Consult Specialist (3) UTI (urinary tract infection) Status: Acute Problem Text: 07/21/2019: Ceftriaxone day #3 07/20/19: + for serratia: continue with Ceftriaxone Cx pending. treatment based on prior cx.: Ceftriaxone (4) Multiple falls Status: Acute Plan/VTE VTE Prophylaxis Ordered?: No (fall risk. on Plavix) Plan Family Medicine Attending Note: I saw and examined Mr. Raman, discussed with [facility] [place]. Agree with her note as documented. He had increased agitation overnight and required more IM sedation. I discussed his case with Dr. Petersen. He stated that he had recently recommended that the patient and his consider dialysis, but he is strongly reconsidering this recommendation given his recent agitation. He reports that Mrs. Raman had been talking about declining mental function, but he (Dr. Petersen) hadn't seen it until this admission. The goal for today is to see if he can hydrate orally. If so then perhaps he can maintain at his current level (CKD 4-5). However, if he can't hydrate orally then his renal function will undoubtably be under pressure and we should have a serious discussion with the family about end of life planning including COMMUNITY SERVICES OFFICER. (systems trainer) VS, I&O, 24H, Fishbone Vital Signs/I&O Vital Signs Date Time Temp Pulse Resp B/P (MAP) Pulse Ox O2 Delivery O2 Flow Rate FiO2 07/22/19 06:15 98.0 84 18 163/64 (97) 96 Room Air I&O- Last 24 Hours up to 6 AM 07/22/19 06:00 Intake Total 400 ml Output Total 4450 ml Balance -4050 ml Laboratory Data 24H LABS Laboratory Tests 2 07/21/19 08:29: Anion Gap 7L, Glomerular Filtration Rate 14.9L, Calcium Level 8.7L, Phosphorus Level 3.2#, Albumin 2.6L 07/21/19 08:53: Nucleated Red Blood Cells % (auto) 0.0 CBC/BMP Laboratory Tests 07/21/19 08:29 07/21/19 08:53 Microbiology Microbiology 07/18/19 Blood Culture - Preliminary, Resulted No Growth after 72 hours. All specime... 07/17/19 Urine Culture - Final, Complete Serratia Marcescens Olive Alejandre Jul 22, 2019 07:48 Rashel Starkey MD Jul 22, 2019 16:59
[2019-07-22] MEDS: CALCITRIOL 0.25 MCG CAP (S0169) PO SCH (10:25)
[2019-07-22] MEDS: SODIUM BICARBONATE 325 MG TAB PO SCH ×2 (10:25→20:46)
[2019-07-22] MEDS: OMEPRAZOLE 20 MG CAP PO SCH ×2 (10:25→20:47)
[2019-07-22] MEDS: FERROUS GLUCONATE 324 MG TAB PO SCH ×2 (10:26→20:47)
[2019-07-22] MEDS: DOCUSATE SODIUM 100 MG CAP PO SCH ×2 (10:26→20:46)
[2019-07-22] MEDS: OCUVITE 1 TAB PO SCH (10:26)
[2019-07-22] MEDS: buPROPion **XL** TABLET 150MG (WELLBUTRIN XL) PO SCH (10:26)
[2019-07-22] MEDS: CLOPIDOGREL 75 MG TAB PO SCH (10:26)
[2019-07-22] MEDS: BISOPROLOL FUM 2.5 MG PER 1/2TAB PO SCH (10:31)
[2019-07-22] MEDS: ISOSORBIDE MON. (IMDUR) 30 MG XR TAB PO SCH (10:31)
[2019-07-22] MEDS: OLANZapine ORAL DISINTEGRATING TAB 5MG PO SCH ×3 (10:44→20:47)
--- NOTE | 2019-07-22 11:49 | IPN ---
DATE OF VISIT: 07/22/2019 Mr. Raman is seen this morning on his bedside. He remains confused and disoriented. He is not eating or drinking much. He was again quite combative and agitated and required some sedation. He pulled out his IV line and has refused lab work this morning and is also resisting IV line placement. On physical exam, at present he is not in any acute distress and he looks comfortable with a sitter present in the room. He is not agitated at the time of my visit. Temperature 98.0 degrees Fahrenheit, heart rate 72 per minute and respiratory rate 18 per minute. Blood pressure as low as 104/89 mmHg and as high as 163/64 mmHg. Oxygen saturation is 96% on room air. His head is atraumatic. Neck is supple and without jugular venous distention (JVD) or thyroid enlargement. Heart sounds are regular and lungs clear to auscultation. Abdomen soft and nontender and bowel sounds are normal. Extremities without any cyanosis or clubbing. Neurologically, he remains confused and disoriented. The patient refused labs today. PROBLEMS: 1. Altered mentation in the setting of chronic progressive dementia. Patient remains essentially unchanged over last 24 hours. He does get agitated more in the evening or at night and has required medications. He pulled out his IV line and refused his labs. At this point, I would suggest to continue with current medications to manage his dementia and agitation related symptoms. 2. Chronic renal failure. Patient has known history of advanced renal failure and dialysis was considered. However, I feel that with his worsening dementia and pulling of lines he is probably not going to be a very suitable candidate for dialysis. His is in the hospital currently with acute medical problems, so I am going to hold off on any further discussions about comfort measures with her. Patient himself is not able to make any decisions. Once his returns from [place], then we can discuss with her about making him COMFORT MEASURES ONLY. 3. Anemia. His anemia has been stable and at this point no intervention is needed. I will remain available for any discussions and will also discuss with his family when appropriate about making a final decision about his care.
[2019-07-22 12:30] LABS: HEMATOCRIT 39.5 % (42.0-52.0); HEMOGLOBIN 12.2 g/dl (13.5-17.5); MEAN CORPUSCULAR HGB CONC 30.9 g/dl (32.0-36.5); MEAN CORPUSCULAR VOLUME 97.3 fl (80.0-96.0); PLATELET COUNT, AUTOMATED 211 10^3/uL (150-450); RED BLOOD COUNT 4.06 10^6/uL (4.30-6.10); WHITE BLOOD COUNT 4.2 10^3/uL (4.0-10.0)
[2019-07-22 13:01] LABS: ALBUMIN 3.1 GM/DL (3.2-5.2); CALCIUM LEVEL 9.3 MG/DL (8.8-10.2); CREATININE FOR GFR 4.26 MG/DL (0.70-1.30); GLOMERULAR FILTRATION RATE 14.3 (>35); PHOSPHORUS LEVEL 3.7 MG/DL (2.5-4.9); POTASSIUM SERUM 4.9 MEQ/L (3.5-5.1)
[2019-07-22] MEDS: cefTRIAXone SOD 1 GM VIAL (J0696) IM SCH ×2 (20:47→20:52)
[2019-07-22] MEDS: GABAPENTIN 100 MG CAP PO SCH (20:47)
[2019-07-22] MEDS: QUEtiapine FUMARATE 50 MG TAB PO SCH (20:47)
[2019-07-22 21:13] VITALS: BP 113/86
[2019-07-23] MEDS: LEVOTHYROXINE 25MCG TABLET (0.025MG) PO SCH (06:01)
[2019-07-23] MEDS: OLANZapine ORAL DISINTEGRATING TAB 5MG PO SCH ×3 (06:01→21:15)
[2019-07-23 06:19] VITALS: BP 96/64
[2019-07-23 07:08] LABS: BASO % 0.5 % (0.0-1.0); EOS # 0.3 10^3/uL (0.0-0.5); EOS % 6.1 % (0.0-3.0); HEMATOCRIT 37.3 % (42.0-52.0); HEMOGLOBIN 11.4 g/dl (13.5-17.5); LYMPH # 1.1 10^3/uL (1.5-5.0); MEAN CORPUSCULAR HEMOGLOBIN 30.1 pg (27.0-33.0); MEAN CORPUSCULAR HGB CONC 30.6 g/dl (32.0-36.5); MEAN CORPUSCULAR VOLUME 98.4 fl (80.0-96.0); MONO # 0.5 10^3/uL (0.0-0.8); MONO % 10.8 % (0.0-5.0); NEUTROPHILS # 2.4 10^3/uL (1.5-8.5); NEUTROPHILS % 57.1 % (36.0-66.0); PLATELET COUNT, AUTOMATED 196 10^3/uL (150-450); RED BLOOD COUNT 3.79 10^6/uL (4.30-6.10); WHITE BLOOD COUNT 4.2 10^3/uL (4.0-10.0)
[2019-07-23 07:36] LABS: ALBUMIN 2.9 GM/DL (3.2-5.2); BILIRUBIN,TOTAL 0.6 MG/DL (0.2-1.0); CALCIUM LEVEL 8.6 MG/DL (8.8-10.2); CREATININE FOR GFR 4.29 MG/DL (0.70-1.30); GLOMERULAR FILTRATION RATE 14.2 (>35); PHOSPHORUS LEVEL 3.8 MG/DL (2.5-4.9); POTASSIUM SERUM 4.3 MEQ/L (3.5-5.1)
[2019-07-23] MEDS: NS 1,000 ML IV SCH ×2 (07:44→20:00)
--- NOTE | 2019-07-23 08:01 | IPNPDOC ---
Subjective Date Seen The patient was seen on 07/23/19. Subjective Chief Complaint/HPI Pt this morning denies pain. Sitter at bedside. Nursing without new concerns. Uneventful overnight for him. ROS difficult to obtain d/t dementia General: Reports: ROS Unobtainable Objective Physical Examination General Exam: Positive: Cooperative, No Acute Distress, Other (limited responses. ) Chest Exam: Positive: Clear to auscultation Heart Exam: Positive: Rate Normal, Regular Rhythm, Normal S1, Normal S2 Abdomen Exam: Positive: Normal bowel sounds, Soft; Negative: Tenderness Extremity Exam: Negative: Edema Psych Exam: Negative: Memory Intact Assessment /Plan Problems (1) Hypernatremia Status: Acute Response to Treatment: Stable Problem Text: 2 dehydration 2 poor po intake 07/23 147 (149) 07/22 +NS 75H baseline mid 130s (2) Dementia with behavioral disturbance Status: Acute Problem Text: on olanz 5 TID, quet 50 QHS 07/23 readd mary 5 IM BID prn agitation given refusal to take medications today (has been compliant) (3) CKD (chronic kidney disease), stage IV Status: Chronic Response to Treatment: Stable Problem Specific Plan: Consult Specialist Problem Text: due to aggression with medical equipment from dementia, unlikely a candidate for dialysis 07/23 stable GFR 14, K 4.3 07/[address] Trinity coronado /family favoring NOT to pursue dialysis, considering CAPTAIN ASSISTANT status (4) UTI (urinary tract infection) Status: Acute Problem Text: ceftriaxone D5/7 BCX1 NG 07/17 UCX Emily beltran (5) Multiple falls Status: Acute (6) HTN (hypertension) Status: Chronic Problem Text: labile 2 agitation stable on HD biso 2.5, ISMN 30 Plan/VTE VTE Prophylaxis Ordered?: No (fall risk. on Plavix) VS, I&O, 24H, Fishbone Vital Signs/I&O Vital Signs Date Time Temp Pulse Resp B/P (MAP) Pulse Ox O2 Delivery O2 Flow Rate FiO2 07/23/19 06:19 97.3 70 18 96/64 (75) 96 Room Air I&O- Last 24 Hours up to 6 AM 07/23/19 06:00 Intake Total 440 ml Output Total 1850 ml Balance -1410 ml Laboratory Data 24H LABS Laboratory Tests 2 07/22/19 12:13: Nucleated Red Blood Cells % (auto) 0.0, Anion Gap 6L, Glomerular Filtration Rate 14.3L, Calcium Level 9.3, Phosphorus Level 3.7, Albumin 3.1L 07/23/19 06:50: Nucleated Red Blood Cells % (auto) 0.0, Anion Gap 6L, Glomerular Filtration Rate 14.2L, Calcium Level 8.6L, Phosphorus Level 3.8, Albumin 2.9L, Immature Granulocyte % (Auto) 0.5, Neutrophils (%) (Auto) 57.1, Lymphocytes (%) (Auto) 25.0, Monocytes (%) (Auto) 10.8H, Eosinophils (%) (Auto) 6.1H, Basophils (%) (Auto) 0.5, Neutrophils # (Auto) 2.4, Lymphocytes # (Auto) 1.1L, Monocytes # (Auto) 0.5, Eosinophils # (Auto) 0.3, Basophils # (Auto) 0.0, Total Bilirubin 0.6, Aspartate Amino Transf (AST/SGOT) 24, Alanine Aminotransferase (ALT/SGPT) 20, Alkaline Phosphatase 84, Total Protein 7.0, Albumin/Globulin Ratio 0.71L CBC/BMP Laboratory Tests 07/22/19 12:13 07/23/19 06:50 Microbiology Microbiology 07/18/19 Blood Culture - Final, Complete NO GROWTH AFTER 5 DAYS 07/17/19 Urine Culture - Final, Complete Serratia Marcescens CHEIKH HAIRSTON PA-C Jul 23, 2019 08:01 Donell Vance M.D. Jul 23, 2019 18:23
[2019-07-23] MEDS: CALCITRIOL 0.25 MCG CAP (S0169) PO SCH ×2 (09:00→15:05)
[2019-07-23] MEDS: BISOPROLOL FUM 2.5 MG PER 1/2TAB PO SCH ×2 (09:00→15:06)
[2019-07-23] MEDS: FERROUS GLUCONATE 324 MG TAB PO SCH ×3 (09:00→21:00)
[2019-07-23] MEDS: ISOSORBIDE MON. (IMDUR) 30 MG XR TAB PO SCH ×2 (09:00→15:07)
[2019-07-23] MEDS: OMEPRAZOLE 20 MG CAP PO SCH ×2 (09:00→21:00)
[2019-07-23] MEDS: CLOPIDOGREL 75 MG TAB PO SCH ×2 (09:00→15:06)
[2019-07-23] MEDS: DOCUSATE SODIUM 100 MG CAP PO SCH ×3 (09:00→21:00)
[2019-07-23] MEDS: SODIUM BICARBONATE 325 MG TAB PO SCH ×2 (09:00→21:00)
[2019-07-23] MEDS: OCUVITE 1 TAB PO SCH ×2 (09:00→15:05)
[2019-07-23] MEDS: buPROPion **XL** TABLET 150MG (WELLBUTRIN XL) PO SCH ×2 (09:00→15:06)
--- NOTE | 2019-07-23 12:06 | IPN ---
DATE: 07/23/2019 Mr. Raman is seen this morning at bedside. He continues to remain very confused and is not eating or drinking. Per nursing staff he had a good day yesterday, but today he is refusing any medications or straight cath and is acutely agitated. He also pulled out his lines yesterday and was resisting further attempts at IV placement. PHYSICAL EXAMINATION: Vitals: Temperature 97.3 degrees Fahrenheit, pulse 70 beats per minute, respiratory rate 18, blood pressure 96/64, 96% on room air. He is sitting at the edge of the bed with only his underwear diaper on and does not appear to be in any acute distress. A sitter, a nurse and nursing aid are in the room trying to get him to put on sock so that he does not fall. He is not able to follow commands and is having difficulty providing answers that make any sense. Head is atraumatic. Neck does not show any jugular venous distention (JVD) or thyroid enlargement. Extremities without cyanosis or edema. Neurologically he continues to be confused and disoriented. LABORATORY WORK: CBC of 4.2, hemoglobin of 11.4, hematocrit of 37.3, platelet count of 196. Sodium is 147, potassium 4.3, chloride of 117, carbon dioxide of 24, BUN of 56, creatinine of 4.29, glucose of 11, calcium of 8.6, albumin of 2.9. PROBLEMS: 1. Altered mentation in the setting of chronic progressive dementia. The patient continues to be unchanged in the last 48 hours. He seems to be requiring more medications to deal with his agitation and continues to pull out his IV line and at multiple points refuses labs or straight catheterizations. We continue to advise medication medical management for his dementia and agitation related symptoms. 2. Chronic renal failure. Dialysis was considered however we do not feel that he is suitable candidate given his acute degree of agitation and how likely he is to continue to try pulling out his lines, so at this point we do not feel he is a suitable candidate for dialysis. Dr. Petersen spoke with his this morning who is now out of the hospital and appears to be doing well. Per their conversation, she does not seem to think that he will make a full recovery from this and it seems as though the family will likely pursue making him comfort measures only (QUALITY CONTROL CHEMIST). 3. Anemia. Anemia has been stable and we will no pursue further intervention at this point. MTDD
[2019-07-23 14:28] VITALS: BP 167/94
[2019-07-23 15:06] VITALS: BP 167/94
[2019-07-23] MEDS: GABAPENTIN 100 MG CAP PO SCH (21:00)
[2019-07-23] MEDS: QUEtiapine FUMARATE 50 MG TAB PO SCH (21:15)
[2019-07-23] MEDS: cefTRIAXone SOD 1 GM VIAL (J0696) IM SCH (21:16)
[2019-07-23 21:27] VITALS: BP 110/73
[2019-07-24] MEDS: OLANZapine INTRAMUSCULAR 10 MG VIAL (S0166) IM PRN ×2 (01:36→14:49)
[2019-07-24 08:31] LABS: BASO % 0.4 % (0.0-1.0); EOS # 0.3 10^3/uL (0.0-0.5); EOS % 5.5 % (0.0-3.0); HEMATOCRIT 36.4 % (42.0-52.0); HEMOGLOBIN 11.2 g/dl (13.5-17.5); LYMPH # 1.3 10^3/uL (1.5-5.0); LYMPH % 25.1 % (24.0-44.0); MEAN CORPUSCULAR HEMOGLOBIN 29.7 pg (27.0-33.0); MEAN CORPUSCULAR HGB CONC 30.8 g/dl (32.0-36.5); MEAN CORPUSCULAR VOLUME 96.6 fl (80.0-96.0); MONO # 0.5 10^3/uL (0.0-0.8); MONO % 9.8 % (0.0-5.0); NEUTROPHILS % 58.6 % (36.0-66.0); PLATELET COUNT, AUTOMATED 207 10^3/uL (150-450); RED BLOOD COUNT 3.77 10^6/uL (4.30-6.10); WHITE BLOOD COUNT 5.1 10^3/uL (4.0-10.0)
[2019-07-24 08:58] LABS: ALBUMIN 3.3 GM/DL (3.2-5.2); BILIRUBIN,TOTAL 0.3 MG/DL (0.2-1.0); CREATININE FOR GFR 4.2 MG/DL (0.70-1.30); GLOMERULAR FILTRATION RATE 14.6 (>35); PHOSPHORUS LEVEL 4.1 MG/DL (2.5-4.9); POTASSIUM SERUM 4.2 MEQ/L (3.5-5.1); TOTAL PROTEIN 7.2 GM/DL (6.4-8.2)
[2019-07-24] MEDS: CALCITRIOL 0.25 MCG CAP (S0169) PO SCH (09:00)
[2019-07-24] MEDS: BISOPROLOL FUM 2.5 MG PER 1/2TAB PO SCH (09:00)
[2019-07-24] MEDS: FERROUS GLUCONATE 324 MG TAB PO SCH ×2 (09:00→21:00)
[2019-07-24] MEDS: buPROPion **XL** TABLET 150MG (WELLBUTRIN XL) PO SCH ×2 (09:00→09:08)
[2019-07-24] MEDS: SODIUM BICARBONATE 325 MG TAB PO SCH (09:00)
[2019-07-24] MEDS: DOCUSATE SODIUM 100 MG CAP PO SCH ×2 (09:00→21:00)
[2019-07-24] MEDS: OCUVITE 1 TAB PO SCH (09:00)
[2019-07-24] MEDS: OMEPRAZOLE 20 MG CAP PO SCH ×2 (09:00→21:00)
[2019-07-24] MEDS: CLOPIDOGREL 75 MG TAB PO SCH (09:00)
[2019-07-24] MEDS: ISOSORBIDE MON. (IMDUR) 30 MG XR TAB PO SCH (09:00)
[2019-07-24] MEDS: OLANZapine ORAL DISINTEGRATING TAB 5MG PO SCH ×4 (09:08→20:48)
[2019-07-24] MEDS: LEVOTHYROXINE 25MCG TABLET (0.025MG) PO SCH (09:18)
[2019-07-24] MEDS: NS 1,000 ML IV SCH (09:19)
[2019-07-24] MEDS ORDERED: LevoFLOXacin 250 MG TABLET PO SCH (09:45)
[2019-07-24] MEDS ORDERED: D5W 1,000 ML IV SCH (09:45)
--- NOTE | 2019-07-24 12:29 | IPNPDOC ---
Text Note Date of Service The patient was seen on 07/24/19. NOTE SUBJECTIVE: Since seen at bedside this morning and is mostly unchanged from yesterday. He knew his name, but when asked direct questions would only give vague answers they could fit any question. Also did not know date, month, year, season. Nursing staff reports that he continues to refuse any medications and has only eaten a little bit this morning (half a banana). Also has been pulling his lines out the past few days and refusing to have them put back in. OBJECTIVE: PHYSICAL EXAM: Vitals: (see below) General: No acute distress, laying comfortably in bed. HEENT: Normocephalic, atraumatic. EOMI. No scleral icterus. Moist mucous membranes. Neck: No JVD Cardiac: RRR, Normal S1 and S2, No murmurs, gallops, rubs. Pulm: Clear to auscultation b/l. Symmetric thorax. No wheezing, crackles, rhonchi Abd: Bowel Sounds present. Abdomen is soft, non-tender, non-distended. No guarding, rebound tenderness, or rigidity. No hepatosplenomegaly. No masses or eccymosis. Ext: No edema or cyanosis Neuro: Confused and disoriented to place and time. LABORATORY DATA, MICROBIOLOGY: Please see below. IMAGING STUDIES: ASSESSMENT AND PLAN: 1. Altered mentation in the setting of chronic progressive dementia. Patient continues to refuse medications through his IV line. Given that he did have a positive UA, we will treat him with 3 days of oral levofloxacin. 2. Hypernatremia Because she is refusing medications through his IV line, we will discontinue these and encourage increased oral intake to lower his sodium as it is likely from the 3 days of sodium chloride received. 3. Chronic Kidney Disease stage 5. The patient's confusion continues he will not be a good candidate for dialysis as discussed in previous notes. After Shelbi has spoken with his 2 days ago who felt that he would likely not recover fully from this and at that time was leaning towards making him comfort measures only. We will await her visit in the hospital to make that decision. 3. Anemia. Anemia has been stable and we will no pursue further intervention at this point. VS,Fishbone, I+O VS, Fishbone, I+O Laboratory Tests 07/24/19 08:16 Vital Signs Date Time Temp Pulse Resp B/P (MAP) Pulse Ox O2 Delivery O2 Flow Rate FiO2 07/23/19 21:27 96.7 82 20 110/73 (85) 98 Room Air I&O- Last 24 Hours up to 6 AM 07/24/19 06:00 Intake Total 480 ml Output Total 1188 ml Balance -708 ml GME ATTESTATION GME ATTESTATION My faculty preceptor for this patient encounter was physically present during the encounter and was fully available. All aspects of the patient interview, examination, medical decision making process, and medical care plan development were reviewed and approved by the faculty preceptor. The faculty preceptor is aware and concurs with the plan as stated in the body of this note and will attest to such by his/her cosignature. ATTENDING NOTE Nephrology Attending Note: Pt was seen and examined with the resident today AM Assessment: CKD5 Hypernatremia Secondary Hyperparathyroidism Serratia UTI HTN Dementia Plan: Pt pulling IV lines. No Access available. Encourage free water intake DC oral Bicarb Levaquin PO for 3 days Not a candidate for HD because of advanced age,dementia and pulling of lines. Medical management only. ANGEL LUIS OLIVEROS DO Jul 24, 2019 12:29 HUYEN TIMMONS MD Jul 24, 2019 17:54
--- NOTE | 2019-07-24 13:48 | IPNPDOC ---
Subjective Date Seen The patient was seen on 07/24/19. Subjective Chief Complaint/HPI none offered. admits to some discomfort but not able to localize General: Reports: ROS Unobtainable (due to dementia) Objective Physical Examination General Exam: Positive: Cooperative, No Acute Distress, Other (refuses to speak or wake for exam) Chest Exam: Positive: Clear to auscultation Heart Exam: Positive: Rate Normal, Regular Rhythm, Normal S1, Normal S2 Abdomen Exam: Positive: Normal bowel sounds, Soft; Negative: Tenderness Extremity Exam: Negative: Edema Skin Exam: Positive: Other skin issue (somewhat decreased skin turgor) Psych Exam: Positive: Memory Intact (demented with limited ability to follow directions ) Assessment /Plan Problems (1) Hypernatremia Status: Acute Response to Treatment: Stable Problem Text: 07/24: sodium is better than 2 days ago but still elevated at 147 2 dehydration 2 poor po intake 07/23 147 (149) 07/22 +NS 75H baseline mid 130s (2) Dementia with behavioral disturbance Status: Acute Problem Text: 07/24: elevated sodium with dementia is poor prognostic indicator. aggressive behavior makes it unsafe to perform some procedures to meds used to help safety. on olanz 5 TID, quet 50 QHS 07/23 readd mary 5 IM BID prn agitation given refusal to take medications today (has been compliant) (3) CKD (chronic kidney disease), stage IV Status: Chronic Response to Treatment: Stable Problem Specific Plan: Consult Specialist Problem Text: due to aggression with medical equipment from dementia, unlikely a candidate for dialysis 07/23 stable GFR 14, K 4.3 07/[address] 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 on Plavix) VS, I&O, 24H, Fishbone Vital Signs/I&O Vital Signs Date Time Temp Pulse Resp B/P (MAP) Pulse Ox O2 Delivery O2 Flow Rate FiO2 07/23/19 21:27 96.7 82 20 110/73 (85) 98 Room Air I&O- Last 24 Hours up to 6 AM 07/24/19 06:00 Intake Total 480 ml Output Total 1188 ml Balance -708 ml Laboratory Data 24H LABS Laboratory Tests 2 07/24/19 08:16: Immature Granulocyte % (Auto) 0.6, Neutrophils (%) (Auto) 58.6, Lymphocytes (%) (Auto) 25.1, Monocytes (%) (Auto) 9.8H, Eosinophils (%) (Auto) 5.5H, Basophils (%) (Auto) 0.4, Neutrophils # (Auto) 3.0, Lymphocytes # (Auto) 1.3L, Monocytes # (Auto) 0.5, Eosinophils # (Auto) 0.3, Basophils # (Auto) 0.0, Nucleated Red Blood Cells % (auto) 0.0, Anion Gap 8, Glomerular Filtration Rate 14.6L, Calcium Level 9.0, Phosphorus Level 4.1, Total Bilirubin 0.3, Aspartate Amino Transf (AST/SGOT) 33, Alanine Aminotransferase (ALT/SGPT) 25, Alkaline Phosphatase 99, Total Protein 7.2, Albumin 3.3, Albumin/Globulin Ratio 0.85L CBC/BMP Laboratory Tests 07/24/19 08:16 Microbiology Microbiology 07/18/19 Blood Culture - Final, Complete NO GROWTH AFTER 5 DAYS 07/17/19 Urine Culture - Final, Complete Serratia Marcescens Saurav Kennedy MD Jul 24, 2019 13:48
[2019-07-24 19:45] VITALS: BP 135/94
[2019-07-24] MEDS: QUEtiapine FUMARATE 50 MG TAB PO SCH (20:48)
[2019-07-24] MEDS: cefTRIAXone SOD 1 GM VIAL (J0696) IM SCH (20:49)
[2019-07-24] MEDS: GABAPENTIN 100 MG CAP PO SCH (21:00)
[2019-07-25] MEDS: OLANZapine ORAL DISINTEGRATING TAB 5MG PO SCH ×3 (05:32→22:00)
[2019-07-25] MEDS: LEVOTHYROXINE 25MCG TABLET (0.025MG) PO SCH (05:32)
[2019-07-25 05:45] VITALS: BP 135/94
[2019-07-25 06:23] LABS: BASO % 0.7 % (0.0-1.0); EOS # 0.4 10^3/uL (0.0-0.5); EOS % 8.9 % (0.0-3.0); HEMATOCRIT 37.1 % (42.0-52.0); HEMOGLOBIN 11.5 g/dl (13.5-17.5); LYMPH # 0.9 10^3/uL (1.5-5.0); MEAN CORPUSCULAR HEMOGLOBIN 29.9 pg (27.0-33.0); MEAN CORPUSCULAR VOLUME 96.4 fl (80.0-96.0); MONO # 0.6 10^3/uL (0.0-0.8); NEUTROPHILS # 2.5 10^3/uL (1.5-8.5); NEUTROPHILS % 55.9 % (36.0-66.0); PLATELET COUNT, AUTOMATED 178 10^3/uL (150-450); RED BLOOD COUNT 3.85 10^6/uL (4.30-6.10); WHITE BLOOD COUNT 4.4 10^3/uL (4.0-10.0)
[2019-07-25 06:51] LABS: ALBUMIN 3.2 GM/DL (3.2-5.2); BILIRUBIN,TOTAL 0.7 MG/DL (0.2-1.0); CALCIUM LEVEL 9.3 MG/DL (8.8-10.2); CREATININE FOR GFR 4.17 MG/DL (0.70-1.30); GLOMERULAR FILTRATION RATE 14.7 (>35); PHOSPHORUS LEVEL 3.3 MG/DL (2.5-4.9); POTASSIUM SERUM 4.1 MEQ/L (3.5-5.1); TOTAL PROTEIN 7.3 GM/DL (6.4-8.2)
[2019-07-25] MEDS: OMEPRAZOLE 20 MG CAP PO SCH ×2 (09:00→21:00)
[2019-07-25] MEDS: DOCUSATE SODIUM 100 MG CAP PO SCH ×2 (09:00→21:00)
--- NOTE | 2019-07-25 12:11 | IPNPDOC ---
Subjective Date Seen The patient was seen on 07/25/19. Subjective Chief Complaint/HPI minimal verbal response beyond acknowledgement of presence in the room. he is alert General: Reports: ROS Unobtainable Objective Physical Examination General Exam: Positive: Cooperative, No Acute Distress, Other (refuses to speak or wake for exam) Chest Exam: Positive: Clear to auscultation Heart Exam: Positive: Rate Normal, Regular Rhythm, Normal S1, Normal S2 Abdomen Exam: Positive: Normal bowel sounds, Soft; Negative: Tenderness Extremity Exam: Negative: Edema Skin Exam: Positive: Other skin issue (somewhat decreased skin turgor) Psych Exam: Positive: Memory Intact (demented with limited ability to follow directions ) Assessment /Plan Problems (1) Comfort measures only status Status: Acute Response to Treatment: Stable Problem Text: due to progressive dementia along with end stage renal disease. 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 He has been DNR/DNI up to today and she now wants full AIRFRAME AND POWER PLANT MECHANIC status. (2) Hypernatremia Status: Acute Response to Treatment: Stable Problem Text: 07/25: sodium down to 146. 07/24: sodium is better than 2 days ago but still elevated at 147 2 dehydration 2 poor po intake 07/23 147 (149) 07/22 +NS 75H baseline mid 130s (3) Dementia with behavioral disturbance Status: Acute Problem Text: 07/25 improvement in sodium sees no improvement in mental status. likely impairment represents his chronic gradually progressive disease state. 07/24: elevated sodium with dementia is poor prognostic indicator. aggressive behavior makes it unsafe to perform some procedures to meds used to help safety. on olanz 5 TID, quet 50 QHS 07/23 readd mary 5 IM BID prn agitation given refusal to take medications today (has been compliant) (4) CKD (chronic kidney disease), stage IV Status: Chronic Response to Treatment: Stable Problem Specific Plan: Consult Specialist Problem Text: due to aggression with medical equipment from dementia, unlikely a candidate for dialysis 07/23 stable GFR 14, K 4.3 07/[address] Trinity coronado /family favoring NOT to pursue dialysis, considering AIRFRAME AND POWER PLANT MECHANIC status (5) UTI (urinary tract infection) Status: Acute Problem Text: ceftriaxone D5/7 BCX1 NG 07/17 UCX Emily beltran (6) Multiple falls Status: Acute (7) HTN (hypertension) Status: Chronic Problem Text: labile 2 agitation stable on HD biso 2.5, ISMN 30 Plan/VTE VTE Prophylaxis Ordered?: No (fall risk. on Plavix) VS, I&O, 24H, Fishbone Vital Signs/I&O Vital Signs Date Time Temp Pulse Resp B/P (MAP) Pulse Ox O2 Delivery O2 Flow Rate FiO2 07/25/19 05:45 97.5 62 17 135/94 (108) 96 Room Air I&O- Last 24 Hours up to 6 AM 07/25/19 06:00 Intake Total 240 ml Output Total 1650 ml Balance -1410 ml Laboratory Data 24H LABS Laboratory Tests 2 07/25/19 06:02: Immature Granulocyte % (Auto) 0.5, Neutrophils (%) (Auto) 55.9, Lymphocytes (%) (Auto) 21.0L, Monocytes (%) (Auto) 13.0H, Eosinophils (%) (Auto) 8.9H, Basophils (%) (Auto) 0.7, Neutrophils # (Auto) 2.5, Lymphocytes # (Auto) 0.9L, Monocytes # (Auto) 0.6, Eosinophils # (Auto) 0.4, Basophils # (Auto) 0.0, Nucleated Red Blood Cells % (auto) 0.0, Anion Gap 10, Glomerular Filtration Rate 14.7L, Calcium Level 9.3, Phosphorus Level 3.3, Total Bilirubin 0.7#, Aspartate Amino Transf (AST/SGOT) 42H, Alanine Aminotransferase (ALT/SGPT) 30, Alkaline Phosphatase 93, Total Protein 7.3, Albumin 3.2, Albumin/Globulin Ratio 0.78L CBC/BMP Laboratory Tests 07/25/19 06:02 Microbiology Microbiology 07/18/19 Blood Culture - Final, Complete NO GROWTH AFTER 5 DAYS 07/17/19 Urine Culture - Final, Complete Serratia Marcescens Saurav Kennedy MD Jul 25, 2019 12:11
[2019-07-25] MEDS ORDERED: SCOPOLAMINE 1MG TRANSDERMAL PATCH TOP PRN (12:15)
[2019-07-25] MEDS ORDERED: FLEET ENEMA PR PRN (12:15)
[2019-07-25] MEDS ORDERED: BISACODYL 10 MG SUPP PR PRN (12:15)
[2019-07-25] MEDS ORDERED: ONDANSETRON 4 MG ORAL DISINTEGRATING TAB (Q0162 PER 1MG) PO PRN (12:15)
--- NOTE | 2019-07-25 15:35 | IPN ---
DATE: 07/25/2019 SUBJECTIVE: Patient was seen and examined at the bedside today morning. He was actually sitting in the sofa. He is awake, alert, oriented times one. He does not have any active complaints. There is no significant improvement in the renal function. He is otherwise afebrile and hemodynamically stable. He does not have any active complaints. OBJECTIVE: VITAL SIGNS: Temperature is 97.5 degrees Fahrenheit, blood pressure 135/94, pulse is 62, respiratory rate of 17, saturating 96% on room air. INTAKE AND OUTPUT: Urine output recorded is 650 mL. Weight in the bed scale is not available. PHYSICAL EXAMINATION: GENERAL: Patient is awake, alert, oriented times one, sitting up in the sofa in no apparent distress. HEAD AND NECK EXAM: Extraocular muscles intact. Pupils equally round and reactive to light. Mucous membranes are moist. Next is supple. There is no jugular venous distention (JVD). CARDIOVASCULAR: S1, S2. Regular rate. No edema of the bilateral lower extremities. RESPIRATORY: Chest is clear to auscultation bilaterally. Bilateral equal air entry. No rales or rhonchi. ABDOMEN: Soft, positive bowel sounds. Nontender. No organomegaly. MUSCULOSKELETAL: No clubbing or cyanosis. Pulses are 2+. CENTRAL NERVOUS SYSTEM (TUBE KNITTER): No focal deficit. He is oriented times one, otherwise moves all extremities. LABORATORY REVIEW: Complete blood count (CBC) showed a WBC of 4.4, hemoglobin 11.5, platelets of 178. Basic metabolic panel (BMP) showed sodium 146, potassium 4.1, chloride 115, bicarbonate 21, BUN 59, creatinine is 4.1, calcium 9.3. Phosphorous is 3.3, albumin is 3.2. CURRENT INPATIENT MEDICATIONS: Patient's medications were all reviewed by me. His intravenous (IV) fluids were stopped yesterday because there is no IV access available. He continues to be on Levaquin for a total of three days. No other change in the medications today as compared with yesterday. ASSESSMENT AND PLAN: 1. Chronic kidney disease stage V. Patient's renal function is stable. Creatinine has been fluctuating close to 4. There are no symptoms of uremia. He is not a candidate for renal replacement therapy because of advanced age, dementia and noncompliance with medical therapy and pulling of IV lines. Continue the medical optimization at this time. 2. Hypernatremia. It is secondary to decreased oral intake. Continue to encourage free water intake. Sodium level is improving from 47 to 146. 3. Anemia in chronic kidney disease. Hemoglobin is 11.5, which is optimal. No need of erythropoiesis stimulating agent (RAMILA) administration at this time. 4. Secondary hyperparathyroidism. Continue current dose of calcitriol 0.25 mcg by mouth daily. 5. Serratia urinary tract infection (UTI). It is sensitive to Levaquin. Patient can get a total of three days of Levaquin antibiotic. DISPOSITION: Patient's renal function is close to his baseline. He is not a candidate for renal replacement therapy. He is hemodynamically stable and nephrology service is going to sign off at this moment. Please call nephrology service for any help in the management of this patient during this hospitalization
[2019-07-25] MEDS: GABAPENTIN 100 MG CAP PO SCH (21:00)
[2019-07-26] MEDS: QUEtiapine FUMARATE 50 MG TAB PO SCH ×2 (00:14→21:00)
[2019-07-26] MEDS: OLANZapine ORAL DISINTEGRATING TAB 5MG PO SCH ×3 (06:00→21:52)
[2019-07-26] MEDS: DOCUSATE SODIUM 100 MG CAP PO SCH ×2 (08:28→21:00)
[2019-07-26] MEDS: OMEPRAZOLE 20 MG CAP PO SCH ×2 (08:28→21:00)
--- NOTE | 2019-07-26 13:06 | DSES ---
DATE OF ADMISSION: 07/17/2019 DATE OF DISCHARGE: Discharge to senior care facility (SNF) care. ATTENDING PHYSICIAN: Dr. Donell Vance HISTORY: This is an 79-year-old male patient who resides at home with his and who was brought to the emergency room after suffering multiple falls and becoming more confused and combative. In the emergency room, he was found to have acute on chronic renal insufficiency, metabolic encephalopathy secondary to urinary tract infection (UTI). He was admitted to the hospital for further management and monitoring. Nephrology was consulted and assisted with management. Urine culture was obtained and grew out Serratia marcescens. The patient was treated with IV antibiotic, which have subsequently been discontinued due to completion of care. His laboratories have otherwise remained quite close to baseline. His serum creatinine was in the low 4s. His BUN is in the 50s. This is close to his baseline. He has chronic kidney disease stage IV, bordering on V. He is followed by nephrology who also saw the patient during his hospitalization and recommended that the patient be made comfort measures due to advanced age, dementia, noncompliance with medical therapy, including pulling at IV lines. This discussion was held with the patient's , who agreed with the recommendations and at this time, the patient has been placed on comfort measures. Mrs. Raman has been unable to bring the patient home secondary to his declining status and is working with social workers in regard to obtaining placement for the patient. DISCHARGE DIAGNOSES: 1. Metabolic encephalopathy with dementia. 2. Chronic kidney disease stage V. 3. Serratia urinary tract infection (UTI). 4. Multiple falls. 5. Hypertension. 6. Anemia of chronic disease. 7. Secondary hyperparathyroidism. Discharge medications and plan will be summarized at the time of discharge from the hospital.
[2019-07-26] MEDS: GABAPENTIN 100 MG CAP PO SCH (21:00)
[2019-07-27] MEDS: OLANZapine ORAL DISINTEGRATING TAB 5MG PO SCH ×3 (06:00→22:00)
[2019-07-27] MEDS: DOCUSATE SODIUM 100 MG CAP PO SCH ×2 (09:00→21:00)
[2019-07-27] MEDS: OMEPRAZOLE 20 MG CAP PO SCH ×2 (09:00→22:35)
[2019-07-27] MEDS: GABAPENTIN 100 MG CAP PO SCH (22:36)
[2019-07-27] MEDS: QUEtiapine FUMARATE 50 MG TAB PO SCH (22:36)
[2019-07-28] MEDS: OLANZapine ORAL DISINTEGRATING TAB 5MG PO SCH ×3 (05:48→21:12)
[2019-07-28] MEDS: DOCUSATE SODIUM 100 MG CAP PO SCH ×2 (11:00→21:00)
[2019-07-28] MEDS: OMEPRAZOLE 20 MG CAP PO SCH ×2 (11:06→21:00)
[2019-07-28] MEDS: GABAPENTIN 100 MG CAP PO SCH (21:00)
[2019-07-28] MEDS: QUEtiapine FUMARATE 50 MG TAB PO SCH (21:12)
[2019-07-29] MEDS: OLANZapine ORAL DISINTEGRATING TAB 5MG PO SCH ×3 (06:00→20:03)
[2019-07-29] MEDS: DOCUSATE SODIUM 100 MG CAP PO SCH ×3 (09:00→20:33)
[2019-07-29] MEDS: OMEPRAZOLE 20 MG CAP PO SCH ×3 (09:00→20:33)
[2019-07-29] MEDS: QUEtiapine FUMARATE 50 MG TAB PO SCH (20:03)
[2019-07-29] MEDS: GABAPENTIN 100 MG CAP PO SCH (20:33)
[2019-07-30] MEDS: OLANZapine ORAL DISINTEGRATING TAB 5MG PO SCH ×4 (05:45→21:15)
[2019-07-30] MEDS: OMEPRAZOLE 20 MG CAP PO SCH ×2 (09:00→21:14)
[2019-07-30] MEDS: DOCUSATE SODIUM 100 MG CAP PO SCH ×2 (09:00→21:15)
[2019-07-30] MEDS: LORazepam 1 MG TAB PO PRN (21:15)
[2019-07-30] MEDS: GABAPENTIN 100 MG CAP PO SCH (21:15)
[2019-07-30] MEDS: QUEtiapine FUMARATE 50 MG TAB PO SCH (21:15)
[2019-07-31] MEDS: OLANZapine ORAL DISINTEGRATING TAB 5MG PO SCH ×3 (05:36→20:56)
[2019-07-31] MEDS: OMEPRAZOLE 20 MG CAP PO SCH ×2 (09:00→20:56)
[2019-07-31] MEDS: DOCUSATE SODIUM 100 MG CAP PO SCH ×2 (09:00→20:55)
[2019-07-31] MEDS: QUEtiapine FUMARATE 50 MG TAB PO SCH (20:55)
[2019-07-31] MEDS: LORazepam 1 MG TAB PO PRN (20:55)
[2019-07-31] MEDS: GABAPENTIN 100 MG CAP PO SCH (20:56)
[2019-08-01] MEDS: OLANZapine ORAL DISINTEGRATING TAB 5MG PO SCH ×3 (06:02→21:58)
[2019-08-01] MEDS: DOCUSATE SODIUM 100 MG CAP PO SCH ×2 (08:48→21:58)
[2019-08-01] MEDS: OMEPRAZOLE 20 MG CAP PO SCH ×2 (08:48→21:58)
[2019-08-01] MEDS: LORazepam 1 MG TAB PO PRN (21:57)
[2019-08-01] MEDS: QUEtiapine FUMARATE 50 MG TAB PO SCH (21:58)
[2019-08-01] MEDS: GABAPENTIN 100 MG CAP PO SCH (21:58)
[2019-08-01] MEDS: ACETAMINOPHEN TAB 650MG DOSE (2X325MG) PO PRN (21:58)
[2019-08-02] MEDS: OLANZapine ORAL DISINTEGRATING TAB 5MG PO SCH ×3 (05:40→23:07)
--- NOTE | 2019-08-02 08:39 | IPNPDOC ---
Subjective Date Seen The patient was seen on 08/02/19. Subjective Chief Complaint/HPI rouses enough to shake his head when asked if he has any discomfort. General: Reports: ROS Unobtainable (no obtainable due to absence of verbal responses.) Objective Physical Examination General Exam: Positive: Cooperative, No Acute Distress, Other (refuses to speak or wake for exam) ENT Exam: Positive: Atraumatic Neck Exam: Positive: Supple; Negative: Lymphadenopathy Chest Exam: Positive: Clear to auscultation Heart Exam: Positive: Rate Normal, Regular Rhythm, Normal S1, Normal S2 Abdomen Exam: Positive: Normal bowel sounds, Soft; Negative: Tenderness Extremity Exam: Negative: Edema Skin Exam: Positive: Other skin issue (somewhat decreased skin turgor) Psych Exam: Positive: Memory Intact (demented with limited ability to follow directions lying right lateral recumbent position, looks comfortable.) Assessment /Plan Problems (1) Comfort measures only status Status: Acute Response to Treatment: Stable Problem Text: 08/02: comfort goal looks to be met. due to progressive dementia along with end stage renal disease. proxy, , has opted for POWERTRAIN CALIBRATION ENGINEER. He has been DNR/DNI up to today and she now wants full POWERTRAIN CALIBRATION ENGINEER status. (2) Hypernatremia Status: Acute Response to Treatment: Stable Problem Text: 08/02: POWERTRAIN CALIBRATION ENGINEER status, not being monitored 07/25: sodium down to 146. 07/24: sodium is better than 2 days ago but still elevated at 147 2 dehydration 2 poor po intake 07/23 147 (149) 07/22 +NS 75H baseline mid 130s (3) Dementia with behavioral disturbance Status: Acute Problem Text: 07/25 improvement in sodium sees no improvement in mental status. likely impairment represents his chronic gradually progressive disease state. 07/24: elevated sodium with dementia is poor prognostic indicator. aggressive behavior makes it unsafe to perform some procedures to meds used to help safety. on olanz 5 TID, quet 50 QHS 07/23 readd mary 5 IM BID prn agitation given refusal to take medications today (has been compliant) (4) CKD (chronic kidney disease), stage IV Status: Chronic Response to Treatment: Stable Problem Specific Plan: Consult Specialist Problem Text: 08/02: POWERTRAIN CALIBRATION ENGINEER, not being monitored. due to aggression with medical equipment from dementia, unlikely a candidate for dialysis 07/23 stable GFR 14, K 4.3 07/[address] Trinity coronado /family favoring NOT to pursue dialysis, considering POWERTRAIN CALIBRATION ENGINEER status (5) UTI (urinary tract infection) Status: Acute Problem Text: 08/02: completed antibiotic course ceftriaxone D5/7 BCX1 NG 07/17 UCX Emily beltran (6) Multiple falls Status: Acute Problem Text: 08/02: sitter in place, will check with nursing to determine if this monitor is still needed. (7) HTN (hypertension) Status: Chronic Problem Text: 08/02: POWERTRAIN CALIBRATION ENGINEER, not being monitored. labile 2 agitation stable on HD biso 2.5, ISMN 30 Plan/VTE VTE Prophylaxis Ordered?: No (fall risk. on Plavix) Plan Advance Directives: DNR, Comfort care VS, I&O, 24H, Fishbone Vital Signs/I&O I&O- Last 24 Hours up to 6 AM 08/02/19 05:59 Intake Total 100 ml Output Total 0 ml Balance 100 ml Saurav Kennedy MD Aug 02, 2019 08:39
[2019-08-02] MEDS: OMEPRAZOLE 20 MG CAP PO SCH ×2 (09:00→21:00)
[2019-08-02] MEDS: DOCUSATE SODIUM 100 MG CAP PO SCH ×2 (09:00→21:00)
[2019-08-02] MEDS: GABAPENTIN 100 MG CAP PO SCH (21:00)
[2019-08-02] MEDS: QUEtiapine FUMARATE 50 MG TAB PO SCH (23:07)
[2019-08-03] MEDS: OLANZapine ORAL DISINTEGRATING TAB 5MG PO SCH ×3 (06:00→21:55)
[2019-08-03] MEDS: DOCUSATE SODIUM 100 MG CAP PO SCH ×2 (08:12→21:00)
[2019-08-03] MEDS: OMEPRAZOLE 20 MG CAP PO SCH ×2 (08:12→21:00)
[2019-08-03] MEDS: QUEtiapine FUMARATE 50 MG TAB PO SCH (21:00)
[2019-08-03] MEDS: GABAPENTIN 100 MG CAP PO SCH (21:00)
[2019-08-04] MEDS: OLANZapine ORAL DISINTEGRATING TAB 5MG PO SCH ×3 (05:49→22:00)
[2019-08-04] MEDS: OMEPRAZOLE 20 MG CAP PO SCH ×2 (08:50→21:00)
[2019-08-04] MEDS: DOCUSATE SODIUM 100 MG CAP PO SCH ×2 (08:50→21:00)
[2019-08-04] MEDS: QUEtiapine FUMARATE 50 MG TAB PO SCH (21:00)
[2019-08-04] MEDS: GABAPENTIN 100 MG CAP PO SCH (21:00)
[2019-08-04] MEDS: LORazepam 1 MG TAB PO PRN (21:37)
[2019-08-05] MEDS: OLANZapine ORAL DISINTEGRATING TAB 5MG PO SCH ×3 (06:00→21:14)
[2019-08-05] MEDS: DOCUSATE SODIUM 100 MG CAP PO SCH ×2 (09:00→21:00)
[2019-08-05] MEDS: OMEPRAZOLE 20 MG CAP PO SCH (09:00)
[2019-08-05] MEDS: QUEtiapine FUMARATE 50 MG TAB PO SCH (21:00)
[2019-08-06] MEDS: OLANZapine ORAL DISINTEGRATING TAB 5MG PO SCH ×5 (05:33→20:02)
[2019-08-06] MEDS: DOCUSATE SODIUM 100 MG CAP PO SCH ×2 (09:00→20:02)
[2019-08-06] MEDS: QUEtiapine FUMARATE 50 MG TAB PO SCH (20:02)
[2019-08-07] MEDS: OLANZapine ORAL DISINTEGRATING TAB 5MG PO SCH ×3 (05:06→21:05)
[2019-08-07] MEDS: DOCUSATE SODIUM 100 MG CAP PO SCH ×2 (08:54→21:00)
[2019-08-07] MEDS: QUEtiapine FUMARATE 50 MG TAB PO SCH (21:00)
[2019-08-08] MEDS: OLANZapine ORAL DISINTEGRATING TAB 5MG PO SCH ×3 (05:21→22:00)
[2019-08-08] MEDS: DOCUSATE SODIUM 100 MG CAP PO SCH ×2 (08:06→22:01)
[2019-08-08] MEDS: ACETAMINOPHEN TAB 650MG DOSE (2X325MG) PO PRN (08:07)
[2019-08-08] MEDS: QUEtiapine FUMARATE 50 MG TAB PO SCH (22:01)
[2019-08-09] MEDS: OLANZapine ORAL DISINTEGRATING TAB 5MG PO SCH (06:00)
[2019-08-09] MEDS: DOCUSATE SODIUM 100 MG CAP PO SCH (09:00)
[2019-08-09] MEDS ORDERED: MOM30SS2 PO (10:30)
[2019-08-09] MEDS ORDERED: QUET5TAB PO (10:30)
[2019-08-09] MEDS ORDERED: DOCU100C16 PO (10:30)
[2019-08-09] MEDS ORDERED: ACET1TAB55 PO (10:30)
[2019-08-09] MEDS ORDERED: FLEEENE12 PR (10:30)
[2019-08-09] MEDS ORDERED: SCOP1PAT2 TOP (10:30)
[2019-08-09] MEDS ORDERED: ONDA4TAB6 PO (10:30)
[2019-08-09] MEDS ORDERED: OLAN5ZYD PO (10:30)
[2019-08-09] MEDS ORDERED: BISA10SU PR (10:30)
[2019-08-09] MEDS ORDERED: OLAN10IN IM (10:30)
[2019-08-09] MEDS ORDERED: ATIV1TAB7 PO (10:30)
--- NOTE | 2019-08-11 08:43 | DSES ---
DATE OF ADMISSION: 08/09/2019 DATE OF DISCHARGE/: 08/10/2019 DIAGNOSES: Vascular dementia, chronic renal insufficiency. HISTORY AND PHYSICAL: Mr. Raman was admitted to our facility for end-of-life care. Admitted to [facility] on 07/17/2019 with altered mental status and multiple falls. He was confused and combative. Did have a history of chronic renal failure and dementia. He was found to have a urinary tract infection (UTI) and acute on chronic renal insufficiency. He was treated for the UTI. He was hydrated and he was seen by nephrology recommended that the resident made comfort measures as renal replacement therapy was not to something that would be successful in someone with advanced dementia. PAST HISTORY: Chronic renal insufficiency and hypertension. Dementia with behavioral disturbances, multiple falls. He also had coronary artery disease. Had angioplasty and stenting, had been treated for bladder cancer, hypothyroidism, hyperlipidemia, chronic obstructive lung disease, esophageal stricture, iron deficiency anemia, peptic ulcer disease, neuropathy, lumbar spinal stenosis. He had back surgeries, appendectomy, pacemaker insertion cataract extraction right inguinal hernia repair and carpal tunnel surgery. At the time of his to the hospital, he was on bisoprolol/hydrochlorothiazide 2.5/6.25 mg daily, bupropion 150 mg XL daily, calcitriol 0.25 mcg daily, Plavix 75 mg daily, ferrous gluconate 324 mg twice a day, gabapentin 100 mg daily, isosorbide 30 mg daily, lactobacillus acidophilus one a day levothyroxine 25 mcg daily, multivitamin with minerals and folic acid daily, omeprazole 40 mg twice a day, potassium chloride 10 meal equivalents twice a day quetiapine 50 mg at bedtime, bicarbonate 650 mg 2 tablets twice a day. He is also on PreserVision AREDS daily. ALLERGIES: Noted to contrast medium SULFA, IODINE and HALOPERIDOL and tape HYDROCODONE and MORPHINE. FAMILY HISTORY: Not available. SOCIAL HISTORY: He was living with his in a mobile home on [facility]. Community provider, I believe was Dr. Bianchi. REVIEW OF SYSTEMS: Not obtainable from the patient but he had been in declining health and was made comfort measures in the hospital and was progressively more lethargic in the hospital. On examination resident was unresponsive. Pulse was 72 and sounded regular, respirations 20 and slightly labored slightly noisy. O2 saturation was in the 70s despite oxygen therapy. He had his eyes open but was unresponsive. No facial weakness. Mucous membranes were dry. There is no neck masses, tenderness or adenopathy. No carotid bruits. Lungs were clear. Heart had a regular rhythm without any murmur, click or gallop. Abdomen: Soft, nontender without any masses or organomegaly. Bowel sounds are active. There is no edema. Babinski signs were negative. There is no founder and ceo. LABORATORY DATA: Labs had not been done recently because of his comfort measures status. ASSESSMENT: 1. Status post UTI. 2. Advanced dementia with agitation secondary to dementia. 3. Acute on chronic renal failure. 4. Coronary artery disease. 5. Hyperlipidemia. PLAN: Resident was admitted to our facility for end-of-life care. He had comfort measures orders. He had Ativan and Phenergan available. Did not seem to be in need of any pain medication. He also had scopolamine patch available. He had bowel care. We did not continue meds for nausea or the scheduled and as needed antipsychotics that he was discharged on. He received nasal oxygen and kept comfortable and quietly in our facility after less than 24 hours.
== END 2019-08-09 11:10 | DRG 682 ==
LOC: M ED 20:32 → M ED INP 23:03 → M MS5PR 07-18 01:11
PROVIDERS: ADMIT Internal Medicine; ATTEND Family Medicine
DX: N17.9 Acute kidney failure, unspecified (principal); G93.41 Metabolic encephalopathy; N39.0 Urinary tract infection, site not specified; F01.51 Vascular dementia, unspecified severity, with behavioral disturbance; E87.2 Acidosis; E87.0 Hyperosmolality and hypernatremia; I12.0 Hypertensive chronic kidney disease with stage 5 chronic kidney disease or end stage renal disease; R29.6 Repeated falls; Z51.5 Encounter for palliative care; I25.10 Atherosclerotic heart disease of native coronary artery without angina pectoris; Z95.1 Presence of aortocoronary bypass graft; Z95.2 Presence of prosthetic heart valve; E03.9 Hypothyroidism, unspecified; E78.5 Hyperlipidemia, unspecified; J44.9 Chronic obstructive pulmonary disease, unspecified; Z95.0 Presence of cardiac pacemaker; Z88.2 Allergy status to sulfonamides; Z88.8 Allergy status to other drugs, medicaments and biological substances; Z88.5 Allergy status to narcotic agent; Z91.041 Radiographic dye allergy status; Z85.51 Personal history of malignant neoplasm of bladder; N18.5 Chronic kidney disease, stage 5; Z79.899 Other long term (current) drug therapy; N25.81 Secondary hyperparathyroidism of renal origin; M10.9 Gout, unspecified; D63.1 Anemia in chronic kidney disease; Z66 Do not resuscitate